=== PATIENT | female | born 1990 | race Caucasian/White ===

== ENCOUNTER 2022-04-16 08:42 | Outpatient (CLI) | payer OTHER, SELFPAY ==
[2022-04-16 12:06] LABS: Cholesterol* 166 mg/dL (90-199); Glucose* 79 mg/dL (60-115)
[2022-04-16 12:07] LABS: HDL Cholesterol* 72 mg/dL (>=50); LDL Cholesterol Calculated 75 mg/dL (<100); Triglycerides* 94 mg/dL (40-149)
== END 2022-04-16 08:43 | disposition home or self-care (01) ==
PROVIDERS: Visit Provider Physician Assistant
DX: Z01.419 Encounter for gynecological examination (general) (routine) without abnormal findings (principal); Z13.6 Encounter for screening for cardiovascular disorders; Z13.1 Encounter for screening for diabetes mellitus
CPT/HCPCS: 80061; 82947

== ENCOUNTER 2022-12-03 07:30 | Outpatient (CLI) | payer OTHER, SELFPAY ==
--- NOTE | 2022-12-03 07:45 | CRLHL7_ITS ---
For Patients: As a result of the Century Cures Act, medical imaging exams and procedure reports are released immediately into your electronic medical record. You may view this report before your referring provider. If you have questions, please contact your health care provider. DIGITAL DIAGNOSTIC LEFT MAMMOGRAM USING TOMOSYNTHESIS AND COMPUTER-AIDED DETECTION LEFT BREAST ULTRASOUND CLINICAL HISTORY: LEFT breast lump. COMPARISON: None. TECHNIQUE: Digital LEFT mammogram in three projections. Tomosynthesis and CAD utilized. Real-time ultrasound imaging of LEFT breast with imaging documentation. BREAST COMPOSITION: The breast is extremely dense, which lowers the sensitivity of mammography. FINDINGS: 3D CC, 3D XCCL and 3D MLO LEFT breast mammogram images submitted. Architectural distortion is present in the upper outer quadrant corresponding to the area of palpable concern. Targeted ultrasound upper outer quadrant performed. In the area of palpable concern there is a large micro lobulated hypoechoic solid mass at 2 o`clock 8 cm from the nipple measuring 3.9 x 2.2 x 3.3 cm. Internal blood flow noted. An additional hypoechoic and lobular masses present at 2 o`clock 10 cm from the nipple measuring 2.4 x 1.5 x 2.2 cm. LEFT axillary lymph node is mildly prominent with cortical thickness measuring up to 4 millimeters. The two breast lesions described above are located approximately 1.1 cm from each other. Additional smaller masses are suspected elsewhere within the upper outer quadrant extending toward the nipple with a third spiculated mass measuring 1.8 x 1.4 x 1.6 cm at 2 o`clock 5 cm from the nipple. IMPRESSION: Multiple, approximately three, solid irregular hypoechoic masses within the upper outer quadrant 2 o`clock 5 cm from the nipple, 8 cm from the nipple and 10 cm from the nipple and measuring 1.8 cm, 3.9 cm and 2.4 cm, respectively. Mildly prominent LEFT axillary lymph node with mild cortical thickening. RECOMMENDATIONS: Ultrasound-guided core needle biopsies. Results and recommendations discussed with the patient. BI-RADS Category 4: Suspicious A lay language report of this examination will be provided to the patient. Dictated by Jovon Ragland MD @ 12/03/2022 9:16:39 AM j/Dictated by: Jovon Ragland MD @ 12/03/2022 9:16:00 AM (Electronically Signed)
--- NOTE | 2022-12-03 08:15 | CRLHL7_ITS ---
For Patients: As a result of the Century Cures Act, medical imaging exams and procedure reports are released immediately into your electronic medical record. You may view this report before your referring provider. If you have questions, please contact your health care provider. PLEASE SEE LEFT DIAGNOSTIC MAMMOGRAM OF SAME DAY. CRL:yary CALE/Dictated by: Jovon Ragland MD @ 12/03/2022 9:16:00 AM (Electronically Signed)
== END 2022-12-03 07:31 | disposition home or self-care (01) ==
LOC: MAMMO 07:30
PROVIDERS: Visit Provider Obstetrics & Gynecology
DX: N63.20 Unspecified lump in the left breast, unspecified quadrant (principal)
CPT/HCPCS: 76642; 77065; G0279

== ENCOUNTER 2022-12-13 09:59 | Outpatient (CLI) | payer OTHER, SELFPAY ==
--- NOTE | 2022-12-13 | CRLHL7_ITS ---
For Patients: As a result of the Century Cures Act, medical imaging exams and procedure reports are released immediately into your electronic medical record. You may view this report before your referring provider. If you have questions, please contact your health care provider. RIGHT DIAGNOSTIC MAMMOGRAM WITH COMPUTER-AIDED DETECTION AND TOMOSYNTHESIS CLINICAL HISTORY: Suspicious LEFT breast masses. Diagnostic RIGHT-sided evaluation performed for completion of workup. COMPARISON: No previous RIGHT-sided imaging available. TECHNIQUE: Digital RIGHT mammogram in 2 projections. Computer-aided detection and tomosynthesis were used. Real-time ultrasound imaging of RIGHT breast with imaging documentation. Scanning was performed by both the technologist and the radiologist. BREAST COMPOSITION: The breasts are extremely dense, which lowers the sensitivity of mammography FINDINGS: Normal dense parenchymal tissue is present on mammography with scattered benign calcifications. No suspicious masses or architectural distortion. No adenopathy. Relatively denser tissue appears a present laterally on clinical exam and on the mammogram. Targeted RIGHT breast ultrasound performed laterally demonstrates dense tissue without suspicious finding. No fibrocystic change. IMPRESSION: No evidence of malignancy on diagnostic mammography and targeted RIGHT breast ultrasound in the lateral aspect. RECOMMENDATIONS: Appropriate action based on the results of the LEFT breast biopsies. BI-RADS Category 2: Benign Results and recommendations discussed with the patient following the left breast biopsy procedures. A lay language report of this examination will be provided to the patient. Dictated by Jovon Ragland MD @ 12/13/2022 12:53:10 PM/yary CALE/Dictated by: Jovon Ragland MD @ 12/13/2022 12:53:00 PM (Electronically Signed)
--- NOTE | 2022-12-13 | CRLHL7_ITS ---
For Patients: As a result of the Century Cures Act, medical imaging exams and procedure reports are released immediately into your electronic medical record. You may view this report before your referring provider. If you have questions, please contact your health care provider. PLEASE SEE RIGHT DIAGNOSTIC MAMMOGRAM OF SAME DAY. CRL:yary CALE/Dictated by: Jovon Ragland MD @ 12/13/2022 12:53:00 PM (Electronically Signed)
--- NOTE | 2022-12-13 10:15 | CRLHL7_ITS ---
For Patients: As a result of the Century Cures Act, medical imaging exams and procedure reports are released immediately into your electronic medical record. You may view this report before your referring provider. If you have questions, please contact your health care provider. ULTRASOUND-GUIDED VACUUM-ASSISTED BREAST BIOPSY OF TWO OR MORE SITES AND POST-BIOPSY DIGITAL MAMMOGRAM FOR BIOPSY MARKER PLACEMENT CLINICAL HISTORY: Suspicious LEFT breast masses. COMPARISON STUDIES: 12/03/2022. TECHNIQUE: Real-time ultrasound with image documentation was used for targeting the breast lesions. Regarding the largest lesion, a vacuum-assisted directional biopsy system was used to obtain core tissue samples with a 10-gauge probe. The 2 additional lesions were biopsied using 18 gauge core needle biopsy devices. Post-biopsy CC and ML digital mammograms were obtained to document position of the biopsy marker. CONSENT and TIME OUT: The procedure, risks, and alternatives were explained to the patient and a consent was signed. [facility] [place] Protocol was followed including pre-procedure verification that relevant information/documentation was available, reviewed and properly matched to the patient; consent accurate and complete; and equipment and supplies available. Time Out was conducted just prior to starting procedure to verify the four required elements: patient identity, correct side/site marked (if applicable), procedure, relevant images/results properly labeled and displayed (if applicable). PROCEDURE: All biopsies were performed in a similar manner. The patient was positioned supine on the ultrasound table. The breast was prepped with ChloraPrep. Ten cc of 1% lidocaine was injected for anesthesia regarding each lesion. A single skin incision was used. Core samples were obtained. A sterile metal biopsy clip was placed percutaneously to lizbeth the lesion position within the breast. The specimens were placed in 10% formalin and sent to the Pathology Department. Pressure was held on the biopsy site until all bleeding subsided. The skin incision was closed with Steri-Strips. An ice pack was positioned over the biopsy site. The patient tolerated the procedure well. Post-biopsy instructions were reviewed with the patient, and a written copy was given to her. SITE A: LATERALITY: LEFT breast, 2 o`clock 8 cm from the nipple measuring 3.9 x 2.2 x 3.3 cm. LESION: Hypoechoic irregularly marginated solid mass. SUSPICION: High. NUMBER OF SAMPLES: 5. BIOPSY CLIP SHAPE: HydroMARK. PROXIMITY OF CLIP TO TARGET: Within the lesion. SITE B: LATERALITY: LEFT breast, 2 o`clock 5 cm from the nipple measuring 1.8 x 1.4 x 1.6 cm. LESION: Hypoechoic irregularly marginated solid mass. SUSPICION: High. NUMBER OF SAMPLES: 5. BIOPSY CLIP SHAPE: Oval. PROXIMITY OF CLIP TO TARGET: Within the lesion. SITE C: LATERALITY: LEFT breast, 2 o`clock 10 cm from the nipple measuring 2.4 x 1.5 x 2.2 cm. LESION: Hypoechoic irregularly marginated solid mass. SUSPICION: High. NUMBER OF SAMPLES: 5. BIOPSY CLIP SHAPE: Oval. PROXIMITY OF CLIP TO TARGET: Within the lesion. DISTANCE BETWEEN: Sites A and B: 1.1 cm. Sites A and C: 0.8 cm. Sites B and C: 1.9 cm. IMPRESSION: Ultrasound-guided breast biopsy of two or more sites. When the pathology report is available, an addendum to this report will be made. ACR not applicable Dictated by: Geovani Chino MD @12/13/2022 12:57:56 PM/yary CALE/Dictated by: Geovani Chino MD @ 12/13/2022 12:57:00 PM ----ADDENDUM---- Pathology for all three lesions is positive for invasive ductal carcinoma. This is concordant. Pretreatment breast MRI recommended. Appropriate action recommended. GEOVANI CHINO M.D. Diagnostic Radiologist [email or web address] D& Transcribed: 11:50 a.m. (Electronically Signed)
--- NOTE | 2022-12-13 10:45 | CRLHL7_ITS ---
For Patients: As a result of the Century Cures Act, medical imaging exams and procedure reports are released immediately into your electronic medical record. You may view this report before your referring provider. If you have questions, please contact your health care provider. PLEASE SEE LEFT ULTRASOUND-GUIDED BIOPSY OF SAME DAY. CRL:yary CALE/Dictated by: Jovon Ragland MD @ 12/13/2022 12:57:00 PM (Electronically Signed)
== END 2022-12-13 10:00 | disposition home or self-care (01) ==
LOC: US 09:59
PROVIDERS: Visit Provider Obstetrics & Gynecology
DX: N63.20 Unspecified lump in the left breast, unspecified quadrant (principal); R92.8 Other abnormal and inconclusive findings on diagnostic imaging of breast
CPT/HCPCS: 19083; 19084; 76642; 77065; 88305; 88360; 88361; A4648; A4649; G0279

== ENCOUNTER 2022-12-23 12:46 | Outpatient (CLI) | payer OTHER, SELFPAY ==
--- NOTE | 2022-12-23 13:00 | CRLHL7_ITS ---
For Patients: As a result of the 21st Century Cures Act, medical imaging exams and procedure reports are released immediately into your electronic medical record. You may view this report before your referring provider. If you have questions, please contact your health care provider. BILATERAL BREAST MRI WITHOUT AND WITH GADOLINIUM CLINICAL HISTORY: 32-year-old female with recently diagnosed LEFT breast cancer. INDICATION FOR BREAST MRI: Staging of newly diagnosed breast cancer and screening of contralateral breast. Regional lymph nodes will also be assessed. COMPARISON STUDIES: LEFT mammogram and ultrasound 12/03/2022, RIGHT mammogram 12/13/2022, LEFT ultrasound-guided biopsy and post procedure mammogram 12/13/2022. CONTRAST: 15 cc of Dotarem. TECHNIQUE: The patient was positioned prone using a breast coil. Multiple imaging sequences were obtained using 1-1.5 mm thick slices with no gap. The image sequences include T2-weighted STIR in the axial plane, T1-weighted nonfat-saturated gradient echo in the axial plane, pre- and post-contrast T1-weighted FLASH 3D with fat suppression in the axial plane, and T1-weighted FLASH high resolution 3D with fat suppression in the sagittal plane. Image post-processing was performed on a [employer] workstation. Complex 3D rendering including maximum intensity projections (MIPS) and volumetric renderings were obtained to optimize visualization of the extent of pathology and relationship to the nipple, skin, and chest wall. This aids in determining feasibility of breast conservation surgery. Subtraction, multiplanar reconstruction, mean curve determination, and angiogenesis mapping were also performed. The study was technically adequate. FINDINGS: Amount of Fibroglandular Tissue: Extreme fibroglandular tissue. Breast Background Enhancement: Marked. RIGHT Breast: At 4 o`clock, middle depth, approximately 4 cm from the nipple there is linear non-mass enhancement measuring 2.1 x 0.5 x 1.7 cm. This demonstrates fast initial enhancement with plateau. LEFT Breast: In the upper outer quadrant of the LEFT breast there are multiple masses with intervening non-mass enhancement which in total span at least 9.8 x 4.3 x 5.8 cm. The largest mass which contains a biopsy marker clip measures 2.4 x 2.6 x 2.5 cm (corresponding to the mass seen on ultrasound labeled as 2 o`clock, 8 cm from the nipple and contains a HydroMARK clip). There are two additional masses, posterior to the largest mass, one of which contains a biopsy marker clip, corresponding to the site of biopsy-proven malignancy at 2 o`clock, 10 cm from the nipple and measures 1.5 x 1.9 cm on MRI. The third site of biopsy-proven malignancy in labeled on ultrasound as 2 o`clock, 5 cm from the nipple measures 1.3 x 1.3 cm on MRI. Lymph Nodes: Lymph nodes appear similar bilaterally. IMPRESSIONS AND RECOMMENDATIONS: LEFT Breast: 1. Multiple masses with intervening non-mass enhancement in the upper outer quadrant, which in total measures up to 9.8 cm is consistent with the biopsy-proven malignancy. 2. Lymph nodes appear symmetric bilaterally, however on the ultrasound there is reported mild cortical thickening of a LEFT axillary lymph node, if it would alter clinical management, consider ultrasound-guided biopsy. RIGHT Breast: Non-mass enhancement in a linear distribution at 4 o`clock, middle depth, measuring up to 2.1 cm and MRI is suspicious. MRI-guided biopsy is recommended. BI-RADS Category 4: Suspicious Dictated by Wen Mo MD @ 12/27/2022 2:10:43 PM paulo/Dictated by: Wen Mo MD @ 12/27/2022 2:16:00 PM (Electronically Signed)
== END 2022-12-23 12:47 | disposition home or self-care (01) ==
LOC: MRI 12:47
PROVIDERS: Visit Provider Surgery
DX: C50.912 Malignant neoplasm of unspecified site of left female breast (principal); R92.2 Inconclusive mammogram
CPT/HCPCS: 77049; A9575

== ENCOUNTER 2023-03-17 08:57 | Day surgery (SDC) | payer OTHER, SELFPAY ==
[2023-03-17 09:09] VITALS: BMI 27.2
[2023-03-17 09:12] VITALS: BP 119/72; PULSE 69; RESP 16; TEMP 36.7; O2SAT 98
[2023-03-17 09:17] LABS: Ur HCG Qualitative* Negative (Negative)
[2023-03-17] MEDS: LACTATED RINGERS 1000 ML 1,000 ML 100 ML IV (09:50)
[2023-03-17] MEDS: SODIUM CHLORIDE 0.9 % (FLUSH) 10 ML SYRINGE IVF (09:50)
--- NOTE | 2023-03-17 10:45 | CRLHL7_ITS ---
For Patients: As a result of the Century Cures Act, medical imaging exams and procedure reports are released immediately into your electronic medical record. You may view this report before your referring provider. If you have questions, please contact your health care provider. Indication: Port-A-Cath placement Technique: Fluoroscopic image of the chest. Fluoroscopic time 33.5 seconds. IMPRESSION: Fluoroscopic guidance for Port-A-Cath placement. Dictated by Jovon Ragland MD @ 03/17/2023 1:26:17 PM (Electronically Signed)
--- NOTE | 2023-03-17 11:09 | W.ANESCHARGE ---
Anesthesia Charges Start Date/Time Anesthesia Start Date: 03/17/23 Anesthesia Start Time: 12:07 Stop Date/Time Anesthesia Stop Date: 03/17/23 Anesthesia Stop Time: 13:32
[2023-03-17] MEDS: CEFAZOLIN 2 GM INJ IVP (12:36)
[2023-03-17] MEDS: LIDOCAINE 1 % PF 30 ML INJECTION (12:45)
[2023-03-17] MEDS: BUPIVACAINE 0.5% 30 ML INJECTION (12:45)
[2023-03-17] MEDS: HEPARIN 500 UNIT/5 ML SYRINGE IVF (13:06)
--- NOTE | 2023-03-17 13:37 | W.ANESCHARGE ---
Anesthesia Charges Start Date/Time Anesthesia Start Date: 03/17/23 Anesthesia Start Time: 12:07 Stop Date/Time Anesthesia Stop Date: 03/17/23 Anesthesia Stop Time: 13:32
[2023-03-17 13:40] VITALS: BP 107/63; PULSE 64; RESP 16; TEMP 36.1; O2SAT 97
[2023-03-17 13:45] VITALS: BP 109/64; PULSE 54; RESP 16; O2SAT 97
[2023-03-17 14:00] VITALS: BP 106/59; PULSE 60; RESP 16; O2SAT 98
--- NOTE | 2023-03-17 14:00 | P.GSOP_ITS ---
Operative Note Pre-op diagnosis: Invasive carcinoma of the left breast Post-op diagnosis: Same Type of Procedure: Right internal jugular port a catheter placement. Indications: Patient is a 32-year-old female with recent diagnosis invasive ductal carcinoma of the left breast. She had previously undergone bilateral mastectomy with reconstruction, placement of bilateral tissue expanders. She was seen by Oncology postoperatively with recommendations to pursue chemotherapy. Risks and benefits of operative intervention were discussed at length with the patient. Risks included but was not limited to: Bleeding, infection, risk of damage to surrounding structures, possible need for additional procedures and postoperative complications such as pneumonia, pulmonary emboli or MT. All q uestions and concerns were addressed with the patient agreeing to proceed. Procedure Description: After discussing the risks and benefits of the procedure, the patient signed informed consent.? The operative site was marked and the patient was brought to the operating room and placed on the operating table in supine position.? Care was taken to pad the patient's pressure points.?? The patient was then given sedation by anesthesia.?? The operative site was then prepped and draped in the usual sterile fashion.? A time-out was then performed. The patient's right internal jugular vein was visualized using ultrasound. Local anesthetic was injected into the neck skin above the vein. This was accessed percutaneously via Seldinger technique using ultrasound guidance. A skin xin was made around the wire. Next local anesthetic was injected into the skin below the clavicle and along the proposed tract to the neck incision. A skin incision was then made with a 15 blade and a pocket created in the chest wall with cautery. The right breast tissue expanders were palpated in lied of approximately 4 cm away from the clavicle. The pocket for the port was created superior to this, care was taken to ensure that the capsule of the tissue expanders was not encountered. A tunneler was then used to thread the catheter from the chest wall pocket to the neck incision. Once this was done fluoroscopy was brought into the field. Over the wire the tract was dilated using fluoroscopy. The wire and the dilator were then removed leaving the sheath i ntact in the vein. Through this the catheter was threaded. Using fluoroscopy the catheter was positioned into the distal SVC. The catheter was noted to flush and aspirate easily. The catheter was then connected to the port. The port was placed in the pocket and secured in place with two 2 0 Prolene stay suture. It was noted to flush and aspirate easily. This was then locked with heparinized saline. The skin was closed with absorbable suture. Sterile dressings were applied. Instrument sponge and needle counts were correct at the end of the case. The patient was woken and taken to the PACU in stable condition. Findings: Right internal jugular port a catheter placement Anesthesia: MAC and local Surgeon: Seda Lockwood MD Estimated blood loss (mL): 2 Condition: stable Disposition: same day Date of procedure: 03/17/23
[2023-03-17 14:15] VITALS: BP 112/68; PULSE 84; RESP 16; O2SAT 97
== END 2023-03-17 14:40 | disposition home or self-care (01) ==
PROVIDERS: Anesthesiology; PCP Obstetrics & Gynecology; Visit Provider Surgery
PROC: (CPT 36561; principal; 2023-03-17 10:45)
DX: Z45.2 Encounter for adjustment and management of vascular access device (principal); C50.912 Malignant neoplasm of unspecified site of left female breast
CPT/HCPCS: 36561; 00532; 71045; 76000; 81025; C1788; J0665; J0690; J1100; J1642; J1885; J2001; J2250; J2405; J2704; J3010; J7120

== ENCOUNTER 2023-08-03 11:30 | Outpatient (RCR) | payer OTHER, SELFPAY ==
--- NOTE | 2023-03-15 09:58 | URNOTE ---
Addendum entered by Marci Sidhu RN 03/18/23 11:38: Neulasta([id number]), has been approved for ONLY THREE MONTHS. 03/11/2023-06/10/2023. Auth #[id number] It will then need to be given in an alternative setting. Original Note: Received request for prior auth for Adriamycin ([id number]), Cytoxan ([id number]), Aloxi ([id number]), Emend ([id number]) and Taxol ([id number]), Per Alberto at [facility], these medications do not require prior authorization. Call ref #[id number] Prior authorization is required for Neulasta([id number]) required prior authorization. This is pending with [facility] and they have until 03/16/2023 to complete.
[2023-03-18 14:40] LABS: Basophils Absolute Auto 0.03 K/uL (0.00-0.30); Basophils Percent Auto 0.4 % (0.0-3.0); Eosinophils Absolute Auto 0.04 K/uL (0.00-0.50); Eosinophils Percent Auto 0.5 % (0.0-7.0); Hematocrit 39.7 % (33.0-51.0); Hemoglobin* 13.1 gm/dL (12.0-16.0); Lymphocytes Absolute Auto 2.76 K/uL (0.90-2.90); Lymphocytes Percent Auto 37.7 % (20-44); Mean Corpuscular HGB Conc 33 gm/dL (32-36); Mean Corpuscular Hemoglobin 33 pg (26-34); Mean Corpuscular Volume 99 fL (80-100); Monocytes Percent Auto 6.3 % (0.0-11.0); Neutrophils Absolute Auto 4.04 K/uL (1.7-7.0); Neutrophils Percent Auto 55.1 % (42.0-72.0); Platelet Count* 251 K/uL (140-440); RDW Coefficient of Variation % 11.4 % (11.5-15.5); Red Blood Count 4.03 m/uL (4.00-5.20); White Blood Count* 7.33 K/uL (4.50-11.00)
[2023-03-18 14:42] LABS: Slide Review Reflex No
[2023-03-18 14:59] LABS: Albumin* 4.6 g/dL (3.3-5.0); Chloride* 104 mmol/L (96-114)
[2023-03-18 15:00] LABS: Sodium* 141 mmol/L (135-149)
[2023-03-18 15:02] LABS: Alkaline Phosphatase* 48 U/L (40-150); Anion Gap 9 mEq/L (7-15); Aspartate Amino Transferase* 23 U/L (12-35); Bilirubin Total* 0.3 mg/dL (0.1-1.5); Blood Urea Nitrogen* 21 mg/dL (5-24); Carbon Dioxide* 28 mmol/L (20-32); Creatinine* 0.6 mg/dL (0.5-1.5); Est. Creatinine Clearance* 133.27; Estimated Glomerular Filt Rate 121 ml/min; Total Protein* 7.7 g/dL (6.0-8.3)
[2023-03-18 15:03] LABS: Alanine Aminotransferase* 21 U/L (4-35); Calcium* 9.6 mg/dL (8.4-10.6); Glucose* 82 mg/dL (60-115)
--- NOTE | 2023-03-18 15:10 | ONC.NURNOTE ---
I met with patient for chemotherapy teaching. Contents of the chemotherapy binder were reviewed. We reviewed side effects of chemotherapy, support resources available, what to report to provider and how to contact the provider. Baseline labs drawn. Patient verbalizes understanding of plan.
[2023-03-23 11:47] VITALS: BP 141/82; PULSE 88; RESP 16; TEMP 36.1; O2SAT 100
[2023-03-23 11:51] LABS: HCG Qualitative Serum* Negative (Negative)
[2023-03-23] MEDS: dexAMETHasone 10 MG in 0.9 % SODIUM CHLORIDE 100 ml 100 ML 404 MG IVPB (12:44)
[2023-03-23] MEDS: PALONOSETRON 0.25 MG/5 ML inj IV (12:44)
[2023-03-23] MEDS: FOSAPREPITANT 150 MG inj 150 MG in 0.9 % SODIUM CHLORIDE 250 ml 250 ML 510 MG IVPB (13:06)
[2023-03-23] MEDS: DOXOrubicin 2 MG/ML inj 120 MG IVP (13:43)
[2023-03-23 14:37] VITALS: BP 129/78; PULSE 65; O2SAT 99
--- NOTE | 2023-03-23 16:10 | ONC.NURNOTE ---
Pt tolerated 1st AC overall well. Pt noted mild sinus pressure/light headedness at conclusion of Cytoxan 30 min infusion. Plan to infuse over 45 min for C2. Port site still slightly swollen from placement; used 1 inch needle, but pt may transition to 3/4 inch needle after healing. Surgical steri strips covering access site; removed prior to accessing and replaced with horizontal steri-strips over incision when port deaccessed.
[2023-04-06 11:42] VITALS: BP 120/80; PULSE 81; RESP 16; TEMP 36.2; O2SAT 99
[2023-04-06 12:06] LABS: Basophils Absolute Auto 0.03 K/uL (0.00-0.30); Basophils Percent Auto 0.4 % (0.0-3.0); Eosinophils Absolute Auto 0.01 K/uL (0.00-0.50); Eosinophils Percent Auto 0.1 % (0.0-7.0); Hematocrit 39.1 % (33.0-51.0); Hemoglobin* 13.3 gm/dL (12.0-16.0); Immature Granulocytes Abs Auto 0.11 K/uL (0.00-0.30); Immature Granulocytes Pct Auto 1.5 %; Lymphocytes Percent Auto 19.6 % (20-44); Mean Corpuscular HGB Conc 34 gm/dL (32-36); Mean Corpuscular Hemoglobin 32 pg (26-34); Mean Corpuscular Volume 95 fL (80-100); Monocytes Percent Auto 8.2 % (0.0-11.0); Neutrophils Absolute Auto 5.02 K/uL (1.7-7.0); Neutrophils Percent Auto 70.2 % (42.0-72.0); Platelet Count* 226 K/uL (140-440); RDW Coefficient of Variation % 11.1 % (11.5-15.5); White Blood Count* 7.16 K/uL (4.50-11.00)
[2023-04-06 12:10] LABS: Slide Review Reflex No
[2023-04-06 12:17] LABS: Albumin* 4.7 g/dL (3.3-5.0)
[2023-04-06 12:18] LABS: Chloride* 99 mmol/L (96-114); Potassium* 3.6 mmol/L (3.6-5.1); Sodium* 136 mmol/L (135-149)
[2023-04-06 12:20] LABS: Aspartate Amino Transferase* 38 U/L (12-35); Bilirubin Total* 0.5 mg/dL (0.1-1.5); Carbon Dioxide* 23 mmol/L (20-32); Creatinine* 0.5 mg/dL (0.5-1.5); Est. Creatinine Clearance* 159.93; Estimated Glomerular Filt Rate 126 ml/min; Total Protein* 7.8 g/dL (6.0-8.3)
[2023-04-06 12:21] LABS: Alanine Aminotransferase* 33 U/L (4-35); Alkaline Phosphatase* 80 U/L (40-150); Blood Urea Nitrogen* 12 mg/dL (5-24); Calcium* 9.2 mg/dL (8.4-10.6); Glucose* 76 mg/dL (60-115)
[2023-04-06 12:22] LABS: Anion Gap 14 mEq/L (7-15)
[2023-04-06 12:23] LABS: HCG Qualitative Serum* Negative (Negative)
--- NOTE | 2023-04-06 12:32 | ONC.PROVNOTE ---
[facility] Provider Note Clinic Note Narrative: Routine on-chemotherapy testing for Discussed with Marychuy Hicks PA-C regarding routine testng prior to chemotherapy. Marychuy Hicks shared communication from [place] that per NCCN, ASCO guidelines, women of child bearing age who have potential to be are tested prior to day 1, cycle 1 for a breast cancer treatment plans. Based on this information, I placed order for serum hcg level prior to cycle 1 day 1 of ddAC on behalf of Marychuy Hicks PA-C for Ms Lim. Subsequent serum hcg orders for future cycles were ordered in error and have been discontinued for Ms. Lim.
[2023-04-06] MEDS: PALONOSETRON 0.25 MG/5 ML inj IV (13:11)
[2023-04-06] MEDS: dexAMETHasone 10 MG in 0.9 % SODIUM CHLORIDE 100 ml 100 ML 404 MG IVPB (13:11)
[2023-04-06] MEDS: FOSAPREPITANT 150 MG inj 150 MG in 0.9 % SODIUM CHLORIDE 250 ml 250 ML 510 MG IVPB (13:40)
[2023-04-06] MEDS: 0.9 % SODIUM CHLORIDE 250 ml IV (13:41)
[2023-04-06] MEDS: DOXOrubicin 2 MG/ML inj 120 MG IVP (14:14)
[2023-04-06] MEDS: SODIUM CHLORIDE 0.9 % (FLUSH) 10 ML SYRINGE IVF (15:30)
[2023-04-21 10:47] LABS: Basophils Absolute Auto 0.03 K/uL (0.00-0.30); Basophils Percent Auto 0.3 % (0.0-3.0); Eosinophils Absolute Auto 0.01 K/uL (0.00-0.50); Eosinophils Percent Auto 0.1 % (0.0-7.0); Hematocrit 36.8 % (33.0-51.0); Hemoglobin* 12.4 gm/dL (12.0-16.0); Immature Granulocytes Abs Auto 0.14 K/uL (0.00-0.30); Immature Granulocytes Pct Auto 1.5 %; Lymphocytes Percent Auto 10.7 % (20-44); Mean Corpuscular HGB Conc 34 gm/dL (32-36); Mean Corpuscular Hemoglobin 32 pg (26-34); Mean Corpuscular Volume 95 fL (80-100); Monocytes Percent Auto 7.8 % (0.0-11.0); Neutrophils Percent Auto 79.6 % (42.0-72.0); Platelet Count* 196 K/uL (140-440); RDW Coefficient of Variation % 11.7 % (11.5-15.5); Red Blood Count 3.87 m/uL (4.00-5.20); White Blood Count* 9.09 K/uL (4.50-11.00)
[2023-04-21 10:52] LABS: Slide Review Reflex No
[2023-04-21 11:12] LABS: Albumin* 4.7 g/dL (3.3-5.0); Chloride* 97 mmol/L (96-114); Potassium* 3.8 mmol/L (3.6-5.1); Sodium* 136 mmol/L (135-149)
[2023-04-21 11:15] LABS: Alanine Aminotransferase* 37 U/L (4-35); Alkaline Phosphatase* 89 U/L (40-150); Anion Gap 14 mEq/L (7-15); Aspartate Amino Transferase* 39 U/L (12-35); Bilirubin Total* 0.5 mg/dL (0.1-1.5); Blood Urea Nitrogen* 12 mg/dL (5-24); Carbon Dioxide* 25 mmol/L (20-32); Creatinine* 0.5 mg/dL (0.5-1.5); Est. Creatinine Clearance* 159.93; Estimated Glomerular Filt Rate 126 ml/min; Glucose* 82 mg/dL (60-115); Total Protein* 7.7 g/dL (6.0-8.3)
[2023-04-21 11:16] LABS: Calcium* 9.3 mg/dL (8.4-10.6)
[2023-04-21 12:04] LABS: HCG Qualitative Serum* Negative (Negative)
[2023-04-21] MEDS: 0.9 % SODIUM CHLORIDE 250 ml IV ×2 (12:20→13:10)
[2023-04-21] MEDS: PALONOSETRON 0.25 MG/5 ML inj IV (12:23)
[2023-04-21] MEDS: dexAMETHasone 10 MG in 0.9 % SODIUM CHLORIDE 100 ml 100 ML 420 MG IVPB (12:23)
[2023-04-21] MEDS: FOSAPREPITANT 150 MG inj 150 MG in 0.9 % SODIUM CHLORIDE 250 ml 250 ML 800 MG IVPB (13:10)
[2023-04-21] MEDS: DOXOrubicin 2 MG/ML inj 120 MG IVP (13:29)
[2023-04-21] MEDS: HEPARIN 500 UNIT/5 ML SYRINGE IVF (15:09)
[2023-04-21] MEDS: SODIUM CHLORIDE 0.9 % (FLUSH) 10 ML SYRINGE IVF (15:09)
[2023-05-09 11:30] LABS: Albumin* 4.7 g/dL (3.3-5.0); Chloride* 104 mmol/L (96-114); Sodium* 138 mmol/L (135-149)
[2023-05-09 11:31] LABS: Potassium* 3.9 mmol/L (3.6-5.1)
[2023-05-09 11:32] LABS: Basophils Absolute Auto 0.02 K/uL (0.00-0.30); Basophils Percent Auto 0.2 % (0.0-3.0); Eosinophils Absolute Auto 0.01 K/uL (0.00-0.50); Eosinophils Percent Auto 0.1 % (0.0-7.0); Hematocrit 33.1 % (33.0-51.0); Immature Granulocytes Abs Auto 0.03 K/uL (0.00-0.30); Immature Granulocytes Pct Auto 0.3 %; Lymphocytes Percent Auto 7.2 % (20-44); Mean Corpuscular HGB Conc 33 gm/dL (32-36); Mean Corpuscular Hemoglobin 33 pg (26-34); Mean Corpuscular Volume 99 fL (80-100); Neutrophils Percent Auto 86.2 % (42.0-72.0); Platelet Count* 275 K/uL (140-440); Red Blood Count 3.34 m/uL (4.00-5.20); White Blood Count* 9.29 K/uL (4.50-11.00)
[2023-05-09 11:33] LABS: Alanine Aminotransferase* 37 U/L (4-35); Alkaline Phosphatase* 79 U/L (40-150); Aspartate Amino Transferase* 32 U/L (12-35); Bilirubin Total* 0.4 mg/dL (0.1-1.5); Blood Urea Nitrogen* 13 mg/dL (5-24); Creatinine* 0.4 mg/dL (0.5-1.5); Est. Creatinine Clearance* 199.91; Estimated Glomerular Filt Rate 133 ml/min; Glucose* 82 mg/dL (60-115); Total Protein* 7.2 g/dL (6.0-8.3)
[2023-05-09 11:34] LABS: Calcium* 9.1 mg/dL (8.4-10.6)
[2023-05-09 11:36] LABS: Slide Review Reflex No
[2023-05-09 11:50] LABS: Anion Gap 10 mEq/L (7-15); Carbon Dioxide* 24 mmol/L (20-32)
[2023-05-09 12:06] LABS: HCG Qualitative Serum* Negative (Negative)
[2023-05-09] MEDS: SODIUM CHLORIDE 0.9 % (FLUSH) 10 ML SYRINGE IVF (12:54)
[2023-05-09] MEDS: PALONOSETRON 0.25 MG/5 ML inj IV (12:54)
[2023-05-09] MEDS: dexAMETHasone 10 MG in 0.9 % SODIUM CHLORIDE 100 ml 100 ML 404 MG IVPB (12:54)
[2023-05-09] MEDS: HEPARIN 500 UNIT/5 ML SYRINGE IVF (12:54)
[2023-05-09] MEDS: 0.9 % SODIUM CHLORIDE 250 ml IV (12:55)
[2023-05-09] MEDS: FOSAPREPITANT 150 MG inj 150 MG in 0.9 % SODIUM CHLORIDE 250 ml 250 ML 800 MG IVPB (13:18)
[2023-05-09] MEDS: DOXOrubicin 2 MG/ML inj 120 MG IVP (13:45)
--- NOTE | 2023-05-09 15:06 | ONC.NURNOTE ---
I met with patient during her infusion appointment. We reviewed side effects of Paclitaxel. Printed information provided. Cryotherapy information provided to patient. Consent form signed.
--- NOTE | 2023-05-09 15:42 | ONC.NURNOTE ---
Patient requesting a referral to [facility] for proton beam radiation. Called placed to Dr. Elena office and they will place referral. [facility] will call patient to schedule consult.
[2023-05-25 08:41] LABS: Basophils Absolute Auto 0.02 K/uL (0.00-0.30); Basophils Percent Auto 0.4 % (0.0-3.0); Eosinophils Absolute Auto 0.02 K/uL (0.00-0.50); Eosinophils Percent Auto 0.4 % (0.0-7.0); Hematocrit 32.9 % (33.0-51.0); Hemoglobin* 11.2 gm/dL (12.0-16.0); Immature Granulocytes Abs Auto 0.04 K/uL (0.00-0.30); Immature Granulocytes Pct Auto 0.9 %; Lymphocytes Percent Auto 14.9 % (20-44); Mean Corpuscular HGB Conc 34 gm/dL (32-36); Mean Corpuscular Hemoglobin 34 pg (26-34); Mean Corpuscular Volume 101 fL (80-100); Neutrophils Percent Auto 72.4 % (42.0-72.0); Platelet Count* 198 K/uL (140-440); RDW Coefficient of Variation % 17.9 % (11.5-15.5); Red Blood Count 3.26 m/uL (4.00-5.20); White Blood Count* 4.55 K/uL (4.50-11.00)
[2023-05-25 08:47] LABS: Slide Review Reflex No
[2023-05-25 08:54] LABS: Chloride* 106 mmol/L (96-114)
[2023-05-25 08:55] LABS: Albumin* 4.7 g/dL (3.3-5.0); Potassium* 4.3 mmol/L (3.6-5.1); Sodium* 139 mmol/L (135-149)
[2023-05-25 08:58] LABS: Alanine Aminotransferase* 25 U/L (4-35); Alkaline Phosphatase* 55 U/L (40-150); Anion Gap 7 mEq/L (7-15); Aspartate Amino Transferase* 24 U/L (12-35); Blood Urea Nitrogen* 20 mg/dL (5-24); Carbon Dioxide* 26 mmol/L (20-32); Creatinine* 0.6 mg/dL (0.5-1.5); Est. Creatinine Clearance* 133.27; Estimated Glomerular Filt Rate 121 ml/min; Total Protein* 7.3 g/dL (6.0-8.3)
[2023-05-25 08:59] LABS: Calcium* 9.2 mg/dL (8.4-10.6); Glucose* 86 mg/dL (60-115)
[2023-05-25 09:09] LABS: Bilirubin Total* < 0.1 mg/dL (0.1-1.5)
[2023-05-25 09:20] LABS: HCG Qualitative Serum* Negative (Negative)
[2023-05-25] MEDS: dexAMETHasone 20 MG in 0.9 % SODIUM CHLORIDE 100 ml 100 ML 408 MG IVPB (09:50)
[2023-05-25] MEDS: ONDANSETRON 2 MG/ML inj 8 MG IVP (09:50)
[2023-05-25] MEDS: 0.9 % SODIUM CHLORIDE 250 ml IV (09:50)
[2023-05-25] MEDS: FAMOTIDINE 20 MG, diphenhydrAMINE 50 MG in 0.9 % SODIUM CHLORIDE 100 ml 100 ML 309 MG IVPB (10:17)
[2023-05-25] MEDS: TUBING PRIMARY IV (10:53)
[2023-05-25] MEDS: PACLITAXEL IV (10:53)
[2023-05-25] MEDS: [UNRECOGNIZED DRUG - OTHER] IV (10:53)
[2023-05-25] MEDS: IN LINE IV (10:53)
[2023-05-25] MEDS: MICRON FILTER SET IV (10:53)
[2023-05-25] MEDS: SODIUM CHLORIDE 0.9 % (FLUSH) 10 ML SYRINGE IVF (12:17)
[2023-05-25] MEDS: HEPARIN 500 UNIT/5 ML SYRINGE IVF (12:17)
[2023-06-01 10:13] VITALS: BP 120/71; PULSE 84; RESP 16; TEMP 36.3; O2SAT 99
[2023-06-01 10:22] LABS: Basophils Percent Auto 0.9 % (0.0-3.0); Eosinophils Percent Auto 0.6 % (0.0-7.0); Hematocrit 31.1 % (33.0-51.0); Hemoglobin* 10.5 gm/dL (12.0-16.0); Immature Granulocytes Pct Auto 0.3 %; Lymphocytes Percent Auto 20.7 % (20-44); Mean Corpuscular HGB Conc 34 gm/dL (32-36); Mean Corpuscular Hemoglobin 34 pg (26-34); Mean Corpuscular Volume 102 fL (80-100); Monocytes Percent Auto 9.9 % (0.0-11.0); Neutrophils Percent Auto 67.6 % (42.0-72.0); Platelet Count* 259 K/uL (140-440); RDW Coefficient of Variation % 17.4 % (11.5-15.5); Red Blood Count 3.05 m/uL (4.00-5.20); White Blood Count* 3.34 K/uL (4.50-11.00)
[2023-06-01 10:30] LABS: Slide Review Reflex No
[2023-06-01 10:37] LABS: Albumin* 4.5 g/dL (3.3-5.0); Chloride* 104 mmol/L (96-114); Potassium* 4.2 mmol/L (3.6-5.1); Sodium* 138 mmol/L (135-149)
[2023-06-01 10:40] LABS: Alanine Aminotransferase* 59 U/L (4-35); Alkaline Phosphatase* 41 U/L (40-150); Anion Gap 8 mEq/L (7-15); Aspartate Amino Transferase* 39 U/L (12-35); Bilirubin Total* 0.2 mg/dL (0.1-1.5); Blood Urea Nitrogen* 14 mg/dL (5-24); Carbon Dioxide* 26 mmol/L (20-32); Creatinine* 0.5 mg/dL (0.5-1.5); Est. Creatinine Clearance* 159.93; Estimated Glomerular Filt Rate 126 ml/min; Glucose* 104 mg/dL (60-115)
[2023-06-01 10:41] LABS: Calcium* 9.1 mg/dL (8.4-10.6)
[2023-06-01 10:59] LABS: HCG Qualitative Serum* Negative (Negative)
[2023-06-01] MEDS: ONDANSETRON 2 MG/ML inj 8 MG IVP (11:32)
[2023-06-01] MEDS: dexAMETHasone 20 MG in 0.9 % SODIUM CHLORIDE 100 ml 100 ML 408 MG IVPB (11:33)
[2023-06-01] MEDS: SODIUM CHLORIDE 0.9 % (FLUSH) 10 ML SYRINGE IVF (11:41)
[2023-06-01] MEDS: HEPARIN 500 UNIT/5 ML SYRINGE IVF (11:41)
[2023-06-01] MEDS: 0.9 % SODIUM CHLORIDE 250 ml IV (11:41)
[2023-06-01] MEDS: FAMOTIDINE 20 MG, diphenhydrAMINE 50 MG in 0.9 % SODIUM CHLORIDE 100 ml 100 ML 309 MG IVPB (11:54)
[2023-06-01] MEDS: TUBING PRIMARY IV (12:25)
[2023-06-01] MEDS: IN LINE IV (12:25)
[2023-06-01] MEDS: PACLITAXEL IV (12:25)
[2023-06-01] MEDS: MICRON FILTER SET IV (12:25)
[2023-06-01] MEDS: [UNRECOGNIZED DRUG - OTHER] IV (12:25)
[2023-06-08 10:40] VITALS: BP 120/67; PULSE 72; RESP 16; TEMP 35.6; O2SAT 99
[2023-06-08 11:08] LABS: Basophils Percent Auto 1.2 % (0.0-3.0); Eosinophils Percent Auto 0.8 % (0.0-7.0); Hematocrit 30.6 % (33.0-51.0); Hemoglobin* 10.3 gm/dL (12.0-16.0); Immature Granulocytes Pct Auto 0.8 %; Lymphocytes Percent Auto 25.7 % (20-44); Mean Corpuscular HGB Conc 34 gm/dL (32-36); Mean Corpuscular Hemoglobin 35 pg (26-34); Mean Corpuscular Volume 103 fL (80-100); Monocytes Percent Auto 14.5 % (0.0-11.0); Platelet Count* 253 K/uL (140-440); Red Blood Count 2.98 m/uL (4.00-5.20); White Blood Count* 2.41 K/uL (4.50-11.00)
[2023-06-08 11:16] LABS: Slide Review Reflex No
[2023-06-08 11:25] LABS: Albumin* 4.5 g/dL (3.3-5.0); Chloride* 101 mmol/L (96-114); Potassium* 3.7 mmol/L (3.6-5.1); Sodium* 137 mmol/L (135-149)
[2023-06-08 11:27] LABS: Creatinine* 0.6 mg/dL (0.5-1.5); Est. Creatinine Clearance* 133.27; Estimated Glomerular Filt Rate 121 ml/min
[2023-06-08 11:28] LABS: Alanine Aminotransferase* 74 U/L (4-35); Alkaline Phosphatase* 50 U/L (40-150); Anion Gap 9 mEq/L (7-15); Aspartate Amino Transferase* 41 U/L (12-35); Bilirubin Total* 0.3 mg/dL (0.1-1.5); Blood Urea Nitrogen* 15 mg/dL (5-24); Carbon Dioxide* 27 mmol/L (20-32); Glucose* 83 mg/dL (60-115)
[2023-06-08 11:29] LABS: Calcium* 9.2 mg/dL (8.4-10.6)
[2023-06-08] MEDS: SODIUM CHLORIDE 0.9 % (FLUSH) 10 ML SYRINGE IVF (12:10)
[2023-06-08] MEDS: HEPARIN 500 UNIT/5 ML SYRINGE IVF (12:10)
[2023-06-08] MEDS: ONDANSETRON 2 MG/ML inj 8 MG IVP (12:10)
[2023-06-08] MEDS: 0.9 % SODIUM CHLORIDE 250 ml IV (12:10)
[2023-06-08] MEDS: dexAMETHasone 20 MG in 0.9 % SODIUM CHLORIDE 100 ml 100 ML 420 MG IVPB (12:11)
[2023-06-08] MEDS: FAMOTIDINE 20 MG, diphenhydrAMINE 50 MG in 0.9 % SODIUM CHLORIDE 100 ml 100 ML 410 MG IVPB (12:37)
[2023-06-08] MEDS: MICRON FILTER SET IV (13:00)
[2023-06-08] MEDS: IN LINE IV (13:00)
[2023-06-08] MEDS: [UNRECOGNIZED DRUG - OTHER] IV (13:00)
[2023-06-08] MEDS: PACLITAXEL IV (13:00)
[2023-06-08] MEDS: TUBING PRIMARY IV (13:00)
[2023-06-09 09:09] LABS: HCG Qualitative Serum* Negative (Negative)
[2023-06-16 10:05] LABS: Basophils Percent Auto 0.4 % (0.0-3.0); Eosinophils Percent Auto 0.7 % (0.0-7.0); Hematocrit 31.6 % (33.0-51.0); Hemoglobin* 10.6 gm/dL (12.0-16.0); Immature Granulocytes Pct Auto 0.4 %; Lymphocytes Percent Auto 16.1 % (20-44); Mean Corpuscular HGB Conc 34 gm/dL (32-36); Mean Corpuscular Hemoglobin 35 pg (26-34); Mean Corpuscular Volume 105 fL (80-100); Monocytes Percent Auto 11.5 % (0.0-11.0); Neutrophils Percent Auto 70.9 % (42.0-72.0); Platelet Count* 215 K/uL (140-440); RDW Coefficient of Variation % 15.2 % (11.5-15.5); Red Blood Count 3.02 m/uL (4.00-5.20); White Blood Count* 2.79 K/uL (4.50-11.00)
[2023-06-16 10:08] LABS: Slide Review Reflex No
[2023-06-16 10:19] LABS: Albumin* 4.5 g/dL (3.3-5.0); Chloride* 103 mmol/L (96-114); Potassium* 3.9 mmol/L (3.6-5.1); Sodium* 136 mmol/L (135-149)
[2023-06-16 10:21] LABS: Anion Gap 6 mEq/L (7-15); Aspartate Amino Transferase* 34 U/L (12-35); Bilirubin Total* 0.4 mg/dL (0.1-1.5); Carbon Dioxide* 27 mmol/L (20-32); Creatinine* 0.5 mg/dL (0.5-1.5); Est. Creatinine Clearance* 159.93; Estimated Glomerular Filt Rate 126 ml/min; Total Protein* 7.1 g/dL (6.0-8.3)
[2023-06-16 10:22] LABS: Alanine Aminotransferase* 54 U/L (4-35); Alkaline Phosphatase* 50 U/L (40-150); Blood Urea Nitrogen* 14 mg/dL (5-24); Calcium* 8.9 mg/dL (8.4-10.6); Glucose* 87 mg/dL (60-115)
[2023-06-16] MEDS: HEPARIN 500 UNIT/5 ML SYRINGE IVF (11:08)
[2023-06-16] MEDS: SODIUM CHLORIDE 0.9 % (FLUSH) 10 ML SYRINGE IVF (11:08)
[2023-06-16 12:15] LABS: HCG Qualitative Serum* Negative (Negative)
[2023-06-22 11:09] VITALS: BP 123/86; PULSE 77; RESP 16; TEMP 35.9; O2SAT 100
[2023-06-22 11:33] LABS: Eosinophils Percent Auto 0.7 % (0.0-7.0); Hematocrit 34.7 % (33.0-51.0); Hemoglobin* 11.6 gm/dL (12.0-16.0); Lymphocytes Percent Auto 26.2 % (20-44); Mean Corpuscular HGB Conc 33 gm/dL (32-36); Mean Corpuscular Hemoglobin 35 pg (26-34); Mean Corpuscular Volume 105 fL (80-100); Monocytes Percent Auto 13.8 % (0.0-11.0); Neutrophils Percent Auto 58.3 % (42.0-72.0); Platelet Count* 225 K/uL (140-440); White Blood Count* 2.98 K/uL (4.50-11.00)
[2023-06-22 11:37] LABS: Slide Review Reflex No
[2023-06-22 11:52] LABS: Albumin* 4.8 g/dL (3.3-5.0); Chloride* 101 mmol/L (96-114); Sodium* 138 mmol/L (135-149)
[2023-06-22 11:54] LABS: Creatinine* 0.5 mg/dL (0.5-1.5); Est. Creatinine Clearance* 159.93; Estimated Glomerular Filt Rate 126 ml/min
[2023-06-22 11:55] LABS: Alanine Aminotransferase* 54 U/L (4-35); Alkaline Phosphatase* 58 U/L (40-150); Anion Gap 10 mEq/L (7-15); Aspartate Amino Transferase* 33 U/L (12-35); Bilirubin Total* 0.4 mg/dL (0.1-1.5); Blood Urea Nitrogen* 18 mg/dL (5-24); Calcium* 9.4 mg/dL (8.4-10.6); Carbon Dioxide* 27 mmol/L (20-32); Glucose* 116 mg/dL (60-115); Total Protein* 7.6 g/dL (6.0-8.3)
[2023-06-22 12:04] LABS: HCG Qualitative Serum* Negative (Negative)
[2023-06-22] MEDS: dexAMETHasone 20 MG in 0.9 % SODIUM CHLORIDE 100 ml 100 ML 408 MG IVPB (12:35)
[2023-06-22] MEDS: 0.9 % SODIUM CHLORIDE 250 ml IV (12:35)
[2023-06-22] MEDS: ONDANSETRON 2 MG/ML inj 8 MG IVP (12:36)
[2023-06-22] MEDS: FAMOTIDINE 20 MG, diphenhydrAMINE 50 MG in 0.9 % SODIUM CHLORIDE 100 ml 100 ML 309 MG IVPB (12:53)
[2023-06-22] MEDS: [UNRECOGNIZED DRUG - OTHER] IV (13:21)
[2023-06-22] MEDS: PACLITAXEL IV (13:21)
[2023-06-22] MEDS: MICRON FILTER SET IV (13:21)
[2023-06-22] MEDS: IN LINE IV (13:21)
[2023-06-22] MEDS: TUBING PRIMARY IV (13:21)
[2023-06-29 11:12] VITALS: BP 121/69; PULSE 80; RESP 16; TEMP 35.9; O2SAT 98
[2023-06-29 11:28] LABS: Basophils Percent Auto 0.3 % (0.0-3.0); Eosinophils Percent Auto 0.6 % (0.0-7.0); Hematocrit 34.3 % (33.0-51.0); Hemoglobin* 11.6 gm/dL (12.0-16.0); Immature Granulocytes Pct Auto 0.8 %; Lymphocytes Percent Auto 26.9 % (20-44); Mean Corpuscular HGB Conc 34 gm/dL (32-36); Mean Corpuscular Hemoglobin 35 pg (26-34); Mean Corpuscular Volume 105 fL (80-100); Monocytes Percent Auto 6.5 % (0.0-11.0); Neutrophils Percent Auto 64.9 % (42.0-72.0); Platelet Count* 244 K/uL (140-440); Red Blood Count 3.28 m/uL (4.00-5.20); White Blood Count* 3.53 K/uL (4.50-11.00)
[2023-06-29 11:30] LABS: Slide Review Reflex No
[2023-06-29 11:41] LABS: Albumin* 4.7 g/dL (3.3-5.0); Chloride* 104 mmol/L (96-114); Potassium* 3.9 mmol/L (3.6-5.1); Sodium* 139 mmol/L (135-149)
[2023-06-29 11:43] LABS: Anion Gap 9 mEq/L (7-15); Aspartate Amino Transferase* 31 U/L (12-35); Bilirubin Total* 0.3 mg/dL (0.1-1.5); Carbon Dioxide* 26 mmol/L (20-32); Creatinine* 0.5 mg/dL (0.5-1.5); Est. Creatinine Clearance* 159.93; Estimated Glomerular Filt Rate 126 ml/min
[2023-06-29 11:44] LABS: Alanine Aminotransferase* 45 U/L (4-35); Alkaline Phosphatase* 53 U/L (40-150); Blood Urea Nitrogen* 20 mg/dL (5-24); Calcium* 9.5 mg/dL (8.4-10.6); Glucose* 115 mg/dL (60-115); Total Protein* 7.5 g/dL (6.0-8.3)
[2023-06-29] MEDS: ONDANSETRON 2 MG/ML inj 8 MG IVP (12:24)
[2023-06-29] MEDS: dexAMETHasone 20 MG in 0.9 % SODIUM CHLORIDE 100 ml 100 ML 408 MG IVPB (12:24)
[2023-06-29] MEDS: FAMOTIDINE 20 MG, diphenhydrAMINE 50 MG in 0.9 % SODIUM CHLORIDE 100 ml 100 ML 412 MG IVPB (12:52)
[2023-06-29] MEDS: MICRON FILTER SET IV (13:16)
[2023-06-29] MEDS: TUBING PRIMARY IV (13:16)
[2023-06-29] MEDS: IN LINE IV (13:16)
[2023-06-29] MEDS: PACLITAXEL IV (13:16)
[2023-06-29] MEDS: [UNRECOGNIZED DRUG - OTHER] IV (13:16)
[2023-06-29] MEDS: 0.9 % SODIUM CHLORIDE 250 ml IV (14:58)
[2023-06-29] MEDS: SODIUM CHLORIDE 0.9 % (FLUSH) 10 ML SYRINGE IVF (14:58)
[2023-06-29] MEDS: HEPARIN 500 UNIT/5 ML SYRINGE IVF (14:58)
[2023-07-06 10:34] LABS: Basophils Percent Auto 0.6 % (0.0-3.0); Hematocrit 33.6 % (33.0-51.0); Hemoglobin* 11.4 gm/dL (12.0-16.0); Immature Granulocytes Pct Auto 0.3 %; Lymphocytes Percent Auto 22.8 % (20-44); Mean Corpuscular HGB Conc 34 gm/dL (32-36); Mean Corpuscular Hemoglobin 36 pg (26-34); Mean Corpuscular Volume 106 fL (80-100); Monocytes Percent Auto 6.8 % (0.0-11.0); Neutrophils Percent Auto 68.5 % (42.0-72.0); Platelet Count* 228 K/uL (140-440); RDW Coefficient of Variation % 12.6 % (11.5-15.5); Red Blood Count 3.18 m/uL (4.00-5.20); White Blood Count* 3.11 K/uL (4.50-11.00)
[2023-07-06 10:39] LABS: Slide Review Reflex No
[2023-07-06 11:05] LABS: Albumin* 4.5 g/dL (3.3-5.0)
[2023-07-06 11:06] LABS: Chloride* 101 mmol/L (96-114); Potassium* 3.9 mmol/L (3.6-5.1); Sodium* 137 mmol/L (135-149)
[2023-07-06 11:08] LABS: Alkaline Phosphatase* 44 U/L (40-150); Anion Gap 9 mEq/L (7-15); Aspartate Amino Transferase* 31 U/L (12-35); Bilirubin Total* 0.2 mg/dL (0.1-1.5); Blood Urea Nitrogen* 23 mg/dL (5-24); Carbon Dioxide* 27 mmol/L (20-32); Creatinine* 0.6 mg/dL (0.5-1.5); Est. Creatinine Clearance* 133.27; Estimated Glomerular Filt Rate 121 ml/min; Total Protein* 7.1 g/dL (6.0-8.3)
[2023-07-06 11:09] LABS: Alanine Aminotransferase* 44 U/L (4-35); Calcium* 9.3 mg/dL (8.4-10.6); Glucose* 135 mg/dL (60-115)
[2023-07-06 11:45] LABS: HCG Quantitative* < 2.39 mIU/mL
[2023-07-06] MEDS: ONDANSETRON 2 MG/ML inj 8 MG IVP (12:22)
[2023-07-06] MEDS: 0.9 % SODIUM CHLORIDE 250 ml IV (12:22)
[2023-07-06] MEDS: dexAMETHasone 20 MG in 0.9 % SODIUM CHLORIDE 100 ml 100 ML 408 MG IVPB (12:22)
[2023-07-06] MEDS: FAMOTIDINE 20 MG, diphenhydrAMINE 50 MG in 0.9 % SODIUM CHLORIDE 100 ml 100 ML 309 MG IVPB (12:50)
[2023-07-06] MEDS: MICRON FILTER SET IV (13:08)
[2023-07-06] MEDS: [UNRECOGNIZED DRUG - OTHER] IV (13:08)
[2023-07-06] MEDS: IN LINE IV (13:08)
[2023-07-06] MEDS: PACLITAXEL IV (13:08)
[2023-07-06] MEDS: TUBING PRIMARY IV (13:08)
[2023-07-06] MEDS: SODIUM CHLORIDE 0.9 % (FLUSH) 10 ML SYRINGE IVF (14:30)
[2023-07-06] MEDS: HEPARIN 500 UNIT/5 ML SYRINGE IVF (14:30)
[2023-07-13 11:31] LABS: Basophils Percent Auto 0.7 % (0.0-3.0); Eosinophils Percent Auto 1.1 % (0.0-7.0); Hematocrit 34.6 % (33.0-51.0); Hemoglobin* 11.8 gm/dL (12.0-16.0); Immature Granulocytes Pct Auto 0.4 %; Lymphocytes Percent Auto 28.6 % (20-44); Mean Corpuscular HGB Conc 34 gm/dL (32-36); Mean Corpuscular Hemoglobin 36 pg (26-34); Mean Corpuscular Volume 105 fL (80-100); Monocytes Percent Auto 8.8 % (0.0-11.0); Neutrophils Percent Auto 60.4 % (42.0-72.0); Platelet Count* 227 K/uL (140-440); RDW Coefficient of Variation % 11.8 % (11.5-15.5); Red Blood Count 3.31 m/uL (4.00-5.20); White Blood Count* 2.83 K/uL (4.50-11.00)
[2023-07-13 11:37] LABS: Slide Review Reflex No
[2023-07-13 11:58] LABS: Chloride* 102 mmol/L (96-114)
[2023-07-13 11:59] LABS: Albumin* 4.5 g/dL (3.3-5.0); Sodium* 137 mmol/L (135-149)
[2023-07-13 12:01] LABS: Creatinine* 0.6 mg/dL (0.5-1.5); Est. Creatinine Clearance* 133.27; Estimated Glomerular Filt Rate 121 ml/min
[2023-07-13 12:02] LABS: Alanine Aminotransferase* 52 U/L (4-35); Alkaline Phosphatase* 45 U/L (40-150); Anion Gap 8 mEq/L (7-15); Aspartate Amino Transferase* 33 U/L (12-35); Bilirubin Total* 0.2 mg/dL (0.1-1.5); Blood Urea Nitrogen* 17 mg/dL (5-24); Calcium* 9.2 mg/dL (8.4-10.6); Carbon Dioxide* 27 mmol/L (20-32); Glucose* 125 mg/dL (60-115); Total Protein* 6.8 g/dL (6.0-8.3)
[2023-07-13 12:19] LABS: HCG Quantitative* < 2.39 mIU/mL
[2023-07-13] MEDS: ONDANSETRON 2 MG/ML inj 8 MG IVP (13:04)
[2023-07-13] MEDS: 0.9 % SODIUM CHLORIDE 250 ml IV (13:04)
[2023-07-13] MEDS: HEPARIN 500 UNIT/5 ML SYRINGE IVF (13:04)
[2023-07-13] MEDS: dexAMETHasone 20 MG in 0.9 % SODIUM CHLORIDE 100 ml 100 ML 408 MG IVPB (13:04)
[2023-07-13] MEDS: SODIUM CHLORIDE 0.9 % (FLUSH) 10 ML SYRINGE IVF (13:05)
[2023-07-13] MEDS: FAMOTIDINE 20 MG, diphenhydrAMINE 50 MG in 0.9 % SODIUM CHLORIDE 100 ml 100 ML 309 MG IVPB (13:28)
[2023-07-13] MEDS: [UNRECOGNIZED DRUG - OTHER] IV (13:51)
[2023-07-13] MEDS: MICRON FILTER SET IV (13:51)
[2023-07-13] MEDS: TUBING PRIMARY IV (13:51)
[2023-07-13] MEDS: IN LINE IV (13:51)
[2023-07-13] MEDS: PACLITAXEL IV (13:51)
[2023-07-20 11:08] VITALS: BP 133/80; PULSE 83; RESP 16; TEMP 36; O2SAT 100
[2023-07-20 11:40] LABS: Basophils Percent Auto 0.3 % (0.0-3.0); Eosinophils Percent Auto 0.7 % (0.0-7.0); Hematocrit 36.8 % (33.0-51.0); Hemoglobin* 12.6 gm/dL (12.0-16.0); Lymphocytes Percent Auto 28.9 % (20-44); Mean Corpuscular HGB Conc 34 gm/dL (32-36); Mean Corpuscular Hemoglobin 35 pg (26-34); Mean Corpuscular Volume 103 fL (80-100); Monocytes Percent Auto 7.4 % (0.0-11.0); Neutrophils Percent Auto 61.7 % (42.0-72.0); Platelet Count* 250 K/uL (140-440); RDW Coefficient of Variation % 11.6 % (11.5-15.5); Red Blood Count 3.57 m/uL (4.00-5.20); White Blood Count* 2.98 K/uL (4.50-11.00)
[2023-07-20 11:44] LABS: Slide Review Reflex No
[2023-07-20 12:12] LABS: Albumin* 4.6 g/dL (3.3-5.0); Chloride* 102 mmol/L (96-114); Potassium* 3.8 mmol/L (3.6-5.1); Sodium* 138 mmol/L (135-149)
[2023-07-20 12:13] LABS: HCG Qualitative Serum* Negative (Negative)
[2023-07-20 12:15] LABS: Alanine Aminotransferase* 56 U/L (4-35); Alkaline Phosphatase* 52 U/L (40-150); Anion Gap 9 mEq/L (7-15); Aspartate Amino Transferase* 35 U/L (12-35); Bilirubin Total* 0.2 mg/dL (0.1-1.5); Blood Urea Nitrogen* 18 mg/dL (5-24); Carbon Dioxide* 27 mmol/L (20-32); Creatinine* 0.7 mg/dL (0.5-1.5); Est. Creatinine Clearance* 114.23; Estimated Glomerular Filt Rate 116 ml/min; Glucose* 130 mg/dL (60-115); Total Protein* 7.3 g/dL (6.0-8.3)
[2023-07-20 12:16] LABS: Calcium* 9.4 mg/dL (8.4-10.6)
[2023-07-20] MEDS: dexAMETHasone 20 MG in 0.9 % SODIUM CHLORIDE 100 ml 100 ML 408 MG IVPB (12:46)
[2023-07-20] MEDS: 0.9 % SODIUM CHLORIDE 250 ml IV (12:46)
[2023-07-20] MEDS: SODIUM CHLORIDE 0.9 % (FLUSH) 10 ML SYRINGE IVF (12:46)
[2023-07-20] MEDS: ONDANSETRON 2 MG/ML inj 8 MG IVP (12:46)
[2023-07-20] MEDS: FAMOTIDINE 20 MG, diphenhydrAMINE 50 MG in 0.9 % SODIUM CHLORIDE 100 ml 100 ML 412 MG IVPB (13:03)
[2023-07-20] MEDS: [UNRECOGNIZED DRUG - OTHER] IV (13:29)
[2023-07-20] MEDS: MICRON FILTER SET IV (13:29)
[2023-07-20] MEDS: IN LINE IV (13:29)
[2023-07-20] MEDS: TUBING PRIMARY IV (13:29)
[2023-07-20] MEDS: PACLITAXEL IV (13:29)
[2023-07-27 10:28] LABS: Basophils Percent Auto 0.3 % (0.0-3.0); Eosinophils Percent Auto 0.5 % (0.0-7.0); Hematocrit 36.9 % (33.0-51.0); Hemoglobin* 12.6 gm/dL (12.0-16.0); Immature Granulocytes Pct Auto 0.3 %; Lymphocytes Percent Auto 23.2 % (20-44); Mean Corpuscular HGB Conc 34 gm/dL (32-36); Mean Corpuscular Hemoglobin 35 pg (26-34); Mean Corpuscular Volume 103 fL (80-100); Monocytes Percent Auto 6.8 % (0.0-11.0); Neutrophils Percent Auto 68.9 % (42.0-72.0); Platelet Count* 228 K/uL (140-440); RDW Coefficient of Variation % 11.3 % (11.5-15.5); White Blood Count* 3.96 K/uL (4.50-11.00)
[2023-07-27 10:35] LABS: Slide Review Reflex No
[2023-07-27 10:51] LABS: Albumin* 4.8 g/dL (3.3-5.0); Chloride* 103 mmol/L (96-114); Potassium* 3.9 mmol/L (3.6-5.1); Sodium* 137 mmol/L (135-149)
[2023-07-27 10:54] LABS: Alanine Aminotransferase* 34 U/L (4-35); Alkaline Phosphatase* 50 U/L (40-150); Anion Gap 12 mEq/L (7-15); Aspartate Amino Transferase* 25 U/L (12-35); Bilirubin Total* 0.3 mg/dL (0.1-1.5); Blood Urea Nitrogen* 23 mg/dL (5-24); Carbon Dioxide* 22 mmol/L (20-32); Creatinine* 0.6 mg/dL (0.5-1.5); Est. Creatinine Clearance* 133.27; Estimated Glomerular Filt Rate 121 ml/min; Glucose* 105 mg/dL (60-115); Total Protein* 7.5 g/dL (6.0-8.3)
[2023-07-27 10:55] LABS: Calcium* 9.3 mg/dL (8.4-10.6)
[2023-07-27 11:28] LABS: HCG Quantitative* < 2.39 mIU/mL
[2023-07-27] MEDS: ONDANSETRON 2 MG/ML inj 8 MG IVP (11:47)
[2023-07-27] MEDS: 0.9 % SODIUM CHLORIDE 250 ml IV (11:47)
[2023-07-27] MEDS: dexAMETHasone 20 MG in 0.9 % SODIUM CHLORIDE 100 ml 100 ML 408 MG IVPB (11:53)
[2023-07-27] MEDS: FAMOTIDINE 20 MG, diphenhydrAMINE 50 MG in 0.9 % SODIUM CHLORIDE 100 ml 100 ML 400 MG IVPB (12:11)
[2023-07-27] MEDS: TUBING PRIMARY IV (12:32)
[2023-07-27] MEDS: IN LINE IV (12:32)
[2023-07-27] MEDS: PACLITAXEL IV (12:32)
[2023-07-27] MEDS: [UNRECOGNIZED DRUG - OTHER] IV (12:32)
[2023-07-27] MEDS: MICRON FILTER SET IV (12:32)
[2023-07-27] MEDS: HEPARIN 500 UNIT/5 ML SYRINGE IVF (13:53)
[2023-07-27] MEDS: SODIUM CHLORIDE 0.9 % (FLUSH) 10 ML SYRINGE IVF (13:53)
--- NOTE | 2023-07-27 14:05 | ONC.NURNOTE ---
Discussed with Dr. Mayfield the timing for port removal once adjuvant chemotherapy is completed. The decision was made to get a PET/CT a few weeks after the completion of chemotherapy. If the scan is clear, we will set up port removal. PET/CT scan orders faxed to [facility] with goal to have the scan around 08/[address] Mayfield 09/06 to review results. Patient verbalizes understanding of plan.
[2023-08-03 11:36] VITALS: BP 117/78; PULSE 80; RESP 16; TEMP 36.1; O2SAT 100
[2023-08-03 12:14] LABS: Basophils Percent Auto 0.6 % (0.0-3.0); Eosinophils Percent Auto 0.6 % (0.0-7.0); Hematocrit 36.1 % (33.0-51.0); Hemoglobin* 12.3 gm/dL (12.0-16.0); Immature Granulocytes Pct Auto 0.3 %; Lymphocytes Percent Auto 19.6 % (20-44); Mean Corpuscular HGB Conc 34 gm/dL (32-36); Mean Corpuscular Hemoglobin 35 pg (26-34); Mean Corpuscular Volume 102 fL (80-100); Monocytes Percent Auto 10.2 % (0.0-11.0); Neutrophils Percent Auto 68.7 % (42.0-72.0); Platelet Count* 219 K/uL (140-440); RDW Coefficient of Variation % 11.4 % (11.5-15.5); Red Blood Count 3.53 m/uL (4.00-5.20); White Blood Count* 3.32 K/uL (4.50-11.00)
[2023-08-03 12:21] LABS: Slide Review Reflex No
[2023-08-03 12:48] LABS: Albumin* 4.4 g/dL (3.3-5.0); Chloride* 102 mmol/L (96-114)
[2023-08-03 12:49] LABS: Potassium* 3.5 mmol/L (3.6-5.1); Sodium* 137 mmol/L (135-149)
[2023-08-03 12:51] LABS: Anion Gap 6 mEq/L (7-15); Aspartate Amino Transferase* 27 U/L (12-35); Bilirubin Total* 0.4 mg/dL (0.1-1.5); Carbon Dioxide* 29 mmol/L (20-32); Creatinine* 0.6 mg/dL (0.5-1.5); Est. Creatinine Clearance* 133.27; Estimated Glomerular Filt Rate 121 ml/min; Total Protein* 7.3 g/dL (6.0-8.3)
[2023-08-03 12:52] LABS: Alanine Aminotransferase* 35 U/L (4-35); Alkaline Phosphatase* 46 U/L (40-150); Blood Urea Nitrogen* 21 mg/dL (5-24); Calcium* 9.6 mg/dL (8.4-10.6); Glucose* 111 mg/dL (60-115)
[2023-08-03] MEDS: ONDANSETRON 2 MG/ML inj 8 MG IVP (13:08)
[2023-08-03] MEDS: SODIUM CHLORIDE 0.9 % (FLUSH) 10 ML SYRINGE IVF (13:08)
[2023-08-03] MEDS: 0.9 % SODIUM CHLORIDE 250 ml IV (13:08)
[2023-08-03] MEDS: dexAMETHasone 20 MG in 0.9 % SODIUM CHLORIDE 100 ml 100 ML 408 MG IVPB (13:10)
[2023-08-03] MEDS: FAMOTIDINE 20 MG, diphenhydrAMINE 50 MG in 0.9 % SODIUM CHLORIDE 100 ml 100 ML 420 MG IVPB (13:29)
[2023-08-03] MEDS: [UNRECOGNIZED DRUG - OTHER] IV (13:46)
[2023-08-03] MEDS: TUBING PRIMARY IV (13:46)
[2023-08-03] MEDS: MICRON FILTER SET IV (13:46)
[2023-08-03] MEDS: IN LINE IV (13:46)
[2023-08-03] MEDS: PACLITAXEL IV (13:46)
--- NOTE | 2023-08-03 16:00 | ONC.NURNOTE ---
I saw patient in clinic today. She was asking if she needed to have her clay caster deflated prior to her radiation simulation on 08/30. I spoke with Haydee at [facility] and she confirms that yes, she will need to have her right breast clay caster deflated. Patient will call Dr. Mayo to schedule this.
== END 2023-08-09 23:59 | disposition home or self-care (01) ==
LOC: CCIC 11:30
PROVIDERS: Clinical Nurse Specialist; Internal Medicine Hematology & Oncology; Physician Assistant; PCP Obstetrics & Gynecology; Referring Provider Obstetrics & Gynecology; Visit Provider Internal Medicine Hematology & Oncology
DX: Z51.11 Encounter for antineoplastic chemotherapy (principal); C50.912 Malignant neoplasm of unspecified site of left female breast; Z17.0 Estrogen receptor positive status [ER+]; R79.89 Other specified abnormal findings of blood chemistry; Z90.13 Acquired absence of bilateral breasts and nipples
CPT/HCPCS: 36415; 36591; 80053; 84702; 84703; 85025; 96376; 96377; 96411; 96413; 99202; 99205; 99211; 99212; 99214; 99215; G0463; J2506; J9000; J9070; J1100; J1200; J1453; J1642; J2405; J2469; J7050; J9267; S0028

== ENCOUNTER 2024-01-25 15:00 | Outpatient (RCR) | payer OTHER, SELFPAY ==
[2023-08-10 11:39] VITALS: BP 125/79; PULSE 92; RESP 16; TEMP 36.3; O2SAT 99
[2023-08-10 12:11] LABS: Basophils Absolute Auto 0.01 K/uL (0.00-0.30); Basophils Percent Auto 0.2 % (0.0-3.0); Eosinophils Absolute Auto 0.03 K/uL (0.00-0.50); Eosinophils Percent Auto 0.7 % (0.0-7.0); Hematocrit 36.2 % (33.0-51.0); Hemoglobin* 12.5 gm/dL (12.0-16.0); Immature Granulocytes Abs Auto 0.02 K/uL (0.00-0.30); Immature Granulocytes Pct Auto 0.4 %; Lymphocytes Percent Auto 18.7 % (20-44); Mean Corpuscular HGB Conc 35 gm/dL (32-36); Mean Corpuscular Hemoglobin 35 pg (26-34); Mean Corpuscular Volume 101 fL (80-100); Monocytes Percent Auto 5.5 % (0.0-11.0); Neutrophils Percent Auto 74.5 % (42.0-72.0); Platelet Count* 254 K/uL (140-440); RDW Coefficient of Variation % 11.2 % (11.5-15.5); Red Blood Count 3.59 m/uL (4.00-5.20); White Blood Count* 4.54 K/uL (4.50-11.00)
[2023-08-10 12:26] LABS: Albumin* 4.5 g/dL (3.3-5.0); Chloride* 100 mmol/L (96-114); Sodium* 137 mmol/L (135-149)
[2023-08-10 12:27] LABS: Potassium* 3.5 mmol/L (3.6-5.1)
[2023-08-10 12:28] LABS: Slide Review Reflex No
[2023-08-10 12:29] LABS: Alkaline Phosphatase* 57 U/L (40-150); Anion Gap 7 mEq/L (7-15); Aspartate Amino Transferase* 24 U/L (12-35); Bilirubin Total* 0.3 mg/dL (0.1-1.5); Blood Urea Nitrogen* 20 mg/dL (5-24); Carbon Dioxide* 30 mmol/L (20-32); Creatinine* 0.5 mg/dL (0.5-1.5); Estimated Glomerular Filt Rate 126 ml/min; Total Protein* 7.3 g/dL (6.0-8.3)
[2023-08-10 12:30] LABS: Alanine Aminotransferase* 31 U/L (4-35); Calcium* 9.8 mg/dL (8.4-10.6); Glucose* 143 mg/dL (60-115)
[2023-08-10 12:52] LABS: HCG Qualitative Serum* Negative (Negative)
[2023-08-10] MEDS: FAMOTIDINE 20 MG, diphenhydrAMINE 50 MG in 0.9 % SODIUM CHLORIDE 100 ml 100 ML 309 MG IVPB (13:25)
[2023-08-10] MEDS: ONDANSETRON 2 MG/ML inj 8 MG IVP (13:26)
[2023-08-10] MEDS: dexAMETHasone 20 MG in 0.9 % SODIUM CHLORIDE 100 ml 100 ML 408 MG IVPB (13:45)
[2023-08-10] MEDS: PACLitaxeL 120 MG, TUBING PRIMARY 1 EACH, In-line 0.2 micron filter set 1 EACH in 0.9 %... 270 MG IV (14:07)
[2023-08-10] MEDS: SODIUM CHLORIDE 0.9 % (FLUSH) 10 ML SYRINGE IVF (15:40)
[2023-08-10] MEDS: HEPARIN 500 UNIT/5 ML SYRINGE IVF (15:40)
[2023-08-17 08:19] VITALS: BP 126/76; PULSE 97; RESP 16; TEMP 35.6; O2SAT 100
[2023-08-17 08:35] LABS: Basophils Percent Auto 0.4 % (0.0-3.0); Eosinophils Percent Auto 0.7 % (0.0-7.0); Hematocrit 36.4 % (33.0-51.0); Hemoglobin* 12.4 gm/dL (12.0-16.0); Immature Granulocytes Pct Auto 0.4 %; Lymphocytes Percent Auto 28.5 % (20-44); Mean Corpuscular HGB Conc 34 gm/dL (32-36); Mean Corpuscular Hemoglobin 34 pg (26-34); Mean Corpuscular Volume 100 fL (80-100); Monocytes Percent Auto 10.9 % (0.0-11.0); Neutrophils Percent Auto 59.1 % (42.0-72.0); Platelet Count* 229 K/uL (140-440); RDW Coefficient of Variation % 11.6 % (11.5-15.5); Red Blood Count 3.63 m/uL (4.00-5.20); White Blood Count* 2.74 K/uL (4.50-11.00)
[2023-08-17 08:42] LABS: Slide Review Reflex No
[2023-08-17 08:54] LABS: Chloride* 103 mmol/L (96-114)
[2023-08-17 08:55] LABS: Albumin* 4.4 g/dL (3.3-5.0); Potassium* 3.9 mmol/L (3.6-5.1); Sodium* 138 mmol/L (135-149)
[2023-08-17 08:57] LABS: Anion Gap 9 mEq/L (7-15); Bilirubin Total* 0.3 mg/dL (0.1-1.5); Carbon Dioxide* 26 mmol/L (20-32); Creatinine* 0.6 mg/dL (0.5-1.5); Estimated Glomerular Filt Rate 121 ml/min
[2023-08-17 08:58] LABS: Alanine Aminotransferase* 33 U/L (4-35); Alkaline Phosphatase* 53 U/L (40-150); Aspartate Amino Transferase* 25 U/L (12-35); Blood Urea Nitrogen* 23 mg/dL (5-24); Calcium* 9.5 mg/dL (8.4-10.6); Glucose* 92 mg/dL (60-115); Total Protein* 7.1 g/dL (6.0-8.3)
[2023-08-17 09:06] LABS: HCG Qualitative Serum* Negative (Negative)
[2023-08-17] MEDS: ONDANSETRON 2 MG/ML inj 8 MG IVP (09:31)
[2023-08-17] MEDS: dexAMETHasone 20 MG in 0.9 % SODIUM CHLORIDE 100 ml 100 ML 408 MG IVPB (09:43)
[2023-08-17] MEDS: FAMOTIDINE 20 MG, diphenhydrAMINE 50 MG in 0.9 % SODIUM CHLORIDE 100 ml 100 ML 400 MG IVPB (10:08)
[2023-08-17] MEDS: [UNRECOGNIZED DRUG - OTHER] IV (10:30)
[2023-08-17] MEDS: TUBING PRIMARY IV (10:30)
[2023-08-17] MEDS: IN LINE IV (10:30)
[2023-08-17] MEDS: PACLITAXEL IV (10:30)
[2023-08-17] MEDS: MICRON FILTER SET IV (10:30)
[2023-08-17] MEDS: SODIUM CHLORIDE 0.9 % (FLUSH) 10 ML SYRINGE IVF ×2 (10:45→11:55)
[2023-08-17] MEDS: 0.9 % SODIUM CHLORIDE 250 ml IV (10:45)
[2023-08-17] MEDS: HEPARIN 500 UNIT/5 ML SYRINGE IVF (11:55)
--- NOTE | 2023-09-27 17:54 | ONC.NURNOTE ---
Received call from pt noting recent nausea and vomiting. She is undergoing Rad Tx and reviewed with her care team. They determined her Rad Tx should not be causing nausea and recommended pt call [facility]. Pt notes an episode of nausea/vomiting a few weeks ago; then last she had nausea and diarrhea and attributes that to food poisoning. Yesterday she had an episode of nausea/vomiting. Pt denies heartburn or sour stomach, noting these episodes come on quickly and resolve spontaneously. At baseline she rarely has nausea or any stomach issues. She does note that her period began today, her 1st period since ~ 03/2023. At this point it is not heavier than usual; she denies period/PMS symptoms except some bloating. She is not on any medications, daily or otherwise. No recent diet changes, noting that her and kids are eating the same foods and are well. Reviewed it could potentially be related to resuming her menstrual cycle or something else. If episodes continue past completion of this period, recommend she see PCP. Pt verbalizes understanding.
--- NOTE | 2023-11-25 12:05 | ONC.NURNOTE ---
Call to patient in follow up to new start Tamoxifen. Patient states she is not having any side effects and denies questions or concerns.
--- NOTE | 2024-01-30 09:53 | ONC.NURNOTE ---
Orders for PET/CT faxed to [facility]. Patient scheduled for 03/15/24.
== END 2024-02-06 23:59 | disposition home or self-care (01) ==
LOC: CCIC 15:00
PROVIDERS: Clinical Nurse Specialist; Referring Provider Obstetrics & Gynecology; Visit Provider Internal Medicine Hematology & Oncology
DX: C50.912 Malignant neoplasm of unspecified site of left female breast (principal); Z17.0 Estrogen receptor positive status [ER+]; R79.89 Other specified abnormal findings of blood chemistry; Z90.13 Acquired absence of bilateral breasts and nipples
CPT/HCPCS: 36415; 36591; 80053; 84703; 85025; 96376; 96413; 99213; 99214; 99215; G0463; J1100; J1200; J1642; J2405; J7050; J9267; S0028

== ENCOUNTER 2024-01-27 10:22 | Outpatient (CLI) | payer OTHER, SELFPAY ==
--- NOTE | 2024-01-27 10:15 | CRLHL7_ITS ---
For Patients: As a result of the Century Cures Act, medical imaging exams and procedure reports are released immediately into your electronic medical record. You may view this report before your referring provider. If you have questions, please contact your health care provider. Indication: Left axillary lump Technique: Grayscale ultrasound of the left axillary soft tissues performed. Comparison: CT-PET 09/01/2023 Findings: Normal subcutaneous tissues within the left axilla. No fluid collection or adenopathy. Impression: No suspicious findings. Dictated by Jovon Ragland MD @ 01/27/2024 12:06:28 PM (Electronically Signed)
--- OUTSIDE RECORDS SUMMARY | 2024-01-27 10:24 | XMS_ITS | Referral Summary ---
Author Organization [facility] Address [address] [place] [address] Care Team Providers Care Surgical Physician Assistant Name Role Phone Elsewhere, Pcp Primary Care Provider Unavailabl e Source Comments Patient records contain information from all sites at [facility]. For routine questions regarding patient records, call [phone] during business hours, M-F 8:00 AM - 5:00 PM Central Time. Record requests for emergency care only can be directed to [phone] at any time.[facility] Allergies No known active allergies Medications Medication Sig Dispensed Refills Start Date End Date Status multivitamin tablet Take 1 tablet by mouth daily. Active ibuprofen (ADVIL,MOTRIN) 200 mg tablet Take 600 mg by mouth every 6 (six) hours. 01/27/2023 Active LORazepam (ATIVAN) 0.5 mg tablet 03/10/2023 Active ondansetron (ZOFRAN) 4 mg tablet 03/10/2023 Active prochlorperazine (COMPAZINE) 10 mg tablet Take by mouth as needed. 03/10/2023 Active mometasone (ELOCON) 0.1 % cream Apply 1 Application topically daily. Apply to skin within the treatment field. 45 g 08/31/2023 Active Active Problems Problem Noted Date Diagnosed Date Malignant Neoplasm Of Overla pping Sites Of Left Female Breast 02/10/2023 Cancer Staging:Pathologic:Stage IIA(pT2, pN0(sn), cM0, G2, ER+, [place]-, HER2-) - Unsigned Immunizations Name Administration Dates Next Due 4vHPV (discontinued) 12/05/2014,07/19/2014,05/28 DTP 05/26/1990, 9,02/26/1989, 989 DTaP (Infanrix, Tripedia) 02/01/1994 Hib (PRP-D) (discontinued) 10/20/1990 MMR 09/06/2000,05/26/1990 SARS-COV-2 (COVID-19) - PFIZ ER (Discontinued)(12 years or older) 04/02/2021,03/03/2021 Tdap 12/12/2020,05/04/2017,03/22/2011 influenza vaccine quad (FLUZONE/FLUARIX) (6 months and older)(PF) 04/09/2022,04/10/2021,04/04/2020, 019,04/24/2018,03/23/2016 Social History Tobacco Use Types Packs/Day Years Used Date Smoking Tobacco: Never Passive Smoke Exposure: Never Smokeless Tobacco: Never Alcohol Use Standard Drinks/Week Comments Yes 0 (1 standard drink = 0.6 oz pur e alcohol) rare Nutrition Answer Date Recorded Nutrition: EVOO Fat Source Unknown 08/25 Nutrition: Servings of Fruits/Vegetables per Day Not on file 08/25/2020 Dental Answer Date Recorded Dental: Regular Dentist Unknown 08/26/19 21 Sex and Gender Information Value Date Recorded Sex Assigned at Not on file Gender Identity Not on file Sexual Orientation Not on file Last Filed Vital Signs Vital Sign Reading Time Taken Comments Blood Pressure 129/68 08/31/2023 1:54 PM CDT Pulse 78 08/31/2023 1:54 PM CDT Temperature 36.5 ??C (97.7 ??F) 10/04/2023 8:24 AM CD T Respiratory Rate 16 08/08/2023 2:45 PM OPTICAL SALES ASSOCIATE Oxygen Saturation 99% 08/08/2023 2:45 PM OPTICAL SALES ASSOCIATE Inhaled Oxygen Concentration - - Weight 87.8 kg (193 lb 9 oz) 10/04/2023 8:24 AM CDT Height 172.8 cm (5' 8.03) 05/22/2021 11:[address] Body Mass Index 29.4 05/22/2021 11:14 AM OPTICAL SALES ASSOCIATE Plan of Treatment Not on file Care Teams Surgical Physician Assistant Relationship Specialty Start Date End Date Elsewhere, Pcp PCP - General Family Medicine 04/24/18
--- OUTSIDE RECORDS SUMMARY | 2024-01-27 10:24 | XMS_ITS | Encounter Summary ---
Author Organization [facility] Address [address] [place] [address] Care Team Providers Care Corporate Officer Name Role Phone Elsewhere, Pcp Primary Care Provider Unavailabl e Encounter Details Date Type Department Care Team (Late st Contact Info) Description 10/07/2023 Documentation Department of Radiation Oncology in [place], [place] [address] [place] [phone] Genesis Elena M.D. [address] [place] [address] Social History Tobacco Use Types Packs/Day Years [...] on file Sexual Orientation Not on file documented as of this encounter Miscellaneous Notes * Radiation Completion Notes - Flaquita Lam RJoséN. - 10/07/2023 11:59 PM CDT DIAGNOSIS: 1. Malignant Neoplasm Of Overlapping Sites Of Left Female Breast (HCC) Attending Physician: Genesis Elena M.D. Treatment Intent: Curative Concomitant Therapy: None Single Plan Treatment Course: 1xBreast Plan ID Fractions Dose / Fraction (cGy) Dose Treated (cGy) Dose Planned (cGy) First Treatment Last Treatment Elapsed Days [id number] 200 1600 1600 09/05/2023 09/14/2023 9 [id number] 200 1800 1800 09/15/2023 09/27/2023 12 [id number] 200 1600 1600 09/28/2023 10/07/2023 9 Treatment Site Summary 5000 5000 09/05/2023 10/07/2023 32 Course Summary 09/05/2023 10/07/2023 32 Radiation Modality: Photons CLINICAL SUMMARY Mrs. Carly Lim completed radiation treatment as planned without interruptions. The courseof treatment was tolerated well. The patient experienced toxicities of grade 1 dermatitis during radiation treatment. TREATMENT RESPONSE: Response to treatment will be determined by post-treatment imaging and/or laboratory work. RECOMMENDED FOLLOW UP: Primary Medical Oncologist. Follow up will be with Dr. Mayfield. Signed by: Flaquita Lam R.N., 10/28/2023 4:[address] PM [address] [facility] [address] [place] [address] documented in this encounter Plan of Treatment Not on file documented as of this encounter Visit Diagnoses Diagnosis Malignant Neoplasm Of Overlapping Sites Of Left Female Breast (HCC)- Primary documented in this encounter Care Teams Corporate Officer Relationship Specialty Start Date End Date Elsewhere, Pcp PCP - General Family Medicine 04/24/18 documented as of this encounter
--- OUTSIDE RECORDS SUMMARY | 2024-01-27 10:24 | XMS_ITS | Clinical Summary ---
Author Organization [facility] Address [address] [place] [address] Care Team Providers Care Vp Packaging Name Role Phone Elsewhere, Pcp Primary Care Provider Unavailabl e Source Comments Patient records contain information from all sites at [facility]. For routine questions regarding patient records, call [phone] during business hours, M-F 8:00 AM - 5:00 PM Central Time. Record requests for emergency care only can be directed to [phone] at any time.[facility] Allergies No known active allergies Medications Medication [...] Cancer Staging:Pathologic:Stage IIA(pT2, pN0(sn), cM0, G2, ER+, [place]-, HER2-) - Unsigned Immunizations Name Administration Dates Next Due 4vHPV (discontinued) 12/05/2014,07/19/2014,05/28 DTP 05/26/1990, 9,02/26/1989, 989 DTaP (Infanrix, Tripedia) 02/01/1994 Hib (PRP-D) (discontinued) 10/20/1990 MMR 09/06/2000,05/26/1990 SARS-COV-2 (COVID-19) - PFIZ ER (Discontinued)(12 years or older) 04/02/2021,03/03/2021 Tdap 12/12/2020,05/04/2017,03/22/2011 influenza vaccine quad (FLUZONE/FLUARIX) (6 months and older)(PF) 04/09/2022,04/10/2021,04/04/2020, 019,04/24/2018,03/23/2016 Family History Medical History Relation Name Comments Breast cancer Aunt Relation Name Status Comments Aunt Social History Tobacco Use Types Packs/Day Years [...] T Respiratory Rate 16 08/08/2023 2:45 PM SLIP BRIDGE OPERATOR Oxygen Saturation 99% 08/08/2023 2:45 PM SLIP BRIDGE OPERATOR Inhaled Oxygen Concentration - - Weight 87.8 kg (193 lb 9 oz) 10/04/2023 8:24 AM CDT Height 172.8 cm (5' 8.03) 05/22/2021 11:[address] Body Mass Index 29.4 05/22/2021 11:14 AM SLIP BRIDGE OPERATOR Plan of Treatment Health Maintenance Due Date Last Done Comments HIV Screening 1988 Hepatitis C Screening 1988 Lipid (Cholesterol) Screening 1988 Pneumococcal vaccine (0-64 y ears) (1 of 2 - PCV) 1994 Hepatitis B Vaccines (1 of 3 - 19+ 3-dose series) 09/21/2007 Zoster Vaccines (1 of 2) 09/21/2007 COVID-19 Vaccine (3 - Pfizer risk series) 04/30/2021 04/02/2021, 03/03/2021 Depression Screening (Annual PHQ-2) 06/20/2023 Cervical Cancer Screening 07/17/2023 07/17/2020, 12/2017 Influenza Vaccine (#1) 2024 , 04/10/2021, 04/04/2020, Additional history exists DTaP,Tdap,and Td Vaccines (9 - Td or Tdap) 12/12/2030 12/12/2020, 05/04/2017, 03/22/2011, Additional history exists HPV Vaccines Completed 12/05/2014, 11/18, 07/19/2014, Additional history exists Care Teams Vp Packaging Relationship Specialty Start Date End Date Elsewhere, Pcp PCP - General Family Medicine 04/24/18
--- OUTSIDE RECORDS SUMMARY | 2024-01-27 10:24 | XMS_ITS ---
Author Organization [facility] Address [address] [place] [address] Care Team Providers Care Cattle Tester Name Role Phone Elsewhere, Pcp Primary Care Provider Unavailabl e Active Problems Problem Noted Date Diagnosed Date Malignant Neoplasm Of Overla pping Sites Of Left Female Breast 02/10/2023 Cancer Staging:Pathologic:Stage IIA(pT2, pN0(sn), cM0, G2, ER+, [place]-, HER2-) - Unsigned Current Oncology Plans No current plan information found. Past Plans No past plan information found. Radiation Treatments * Plan Last Treated On Elapsed Days Fractions Treated Prescribed Fraction Dose Prescribed Total Dose [id number] 10/07/2023 32 8 of 8 200 cGy 1,600 cGy [id number] 09/27/2023 22 9 of 9 200 cGy 1,800 cGy [id number] 09/14/2023 9 8 of 17 200 cGy 3,400 cGy Reference Point Last Treated On Elapsed Days Session Dose Total Dose [id number] 10/07/2023 32 200 cGy 5,000 cGy
--- OUTSIDE RECORDS SUMMARY | 2024-01-27 10:24 | XMS_ITS ---
Author Organization [facility] Address [address] [place] [address] Care Team Providers Care Rear Load Truck Driver Name Role Phone Unavailable Unavailable Unavailable Surgery Details Not on file Complications Check Surgery Details section. Procedure Estimated Blood Loss Check Surgery Details section. Procedure Findings Check Surgery Details section. Procedure Specimens Taken Check Surgery Details section.
--- OUTSIDE RECORDS SUMMARY | 2024-01-27 10:24 | XMS_ITS | Clinical Summary ---
Author Organization [facility] Address [place], [place] [address] Care Team Providers Care Enterprise Account Manager Name Role Phone [facility] Primary Care Provider Unavail able Geovanna Chatman RN Unavailable [phone] Maite Ireland MD Unavailable Bakari Mayo MD Unavailable [phone] Jodi Mayfield MD Unavailable [phone] Allergies No known active allergies Medications Medication Sig Dispensed Refills Start Date End Date Status ibuprofen (ADVIL; MOTRIN) 200 mg tabletIndications:S/ P breast reconstruction, bilateral Take 3 Tablets (600 mg) by mouth every 6 hours. Take it scheduled. 100 Tablet 01/27/2023 Active tamoxifen (NOLVADEX) 20 mg tablet Take 20 mg by mouth once daily. Active Active Problems Problem Noted Date Diagnosed Date Malignant neoplasm of upper- outer quadrant of left breast in female, estrogen receptor positive 12/29/2022 Cancer Staging:Clinical:Stage IIA(cT2, cN0, cM0, G2, ER+, MT-, HER2-) - Signed by Maite Ireland MD on 12/29/2022 Pathologic stage from 01/27/2023:Stage IB(pT2, pN0, cM0, G3, ER+, MT+, HER2-) - Signed by America Hargrove PA on 02/07/2023 Other acne 03/22/2011 Contraception 03/22/2011 Patent foramen ovale 01/27/2009 Overview: Noted on echocardiogram 12/2008 Encounters Date Type Department Care Team Description 01/26/2024 8:30 AM CDT Office Visit [facility] [place] [address] [place] [address] America Barron PA Follow Up (History of breast cancer ) 01/26/2024 Telephone [facility] [address] [place] [phone] Flaquita Ferrari PA Appointment Request (post op) 01/26/2024 Travel 01/25/2024 Travel 01/18/2024 Telephone [facility] [place] [address] [place] [address] Damaris Bliss NEONATAL NURSE PRACTITIONER Social Work Contact (Mental Health Therapy Referral) from Last 3 Months Immunizations Name Administration Dates Next Due DTP 05/26/1990,05/24/1989,02/26/1989 ,1988 DTaP 02/01/1994,02/01/1994 HIB PRP-D (ProHIBIT) 10/20/1990 Hepatitis B (Peds) 04/27/1999,11/20/1998, 999 Human Papilloma Virus Vaccine 12/05/2014, 015,05/28/2014 MMR 09/06/2000,05/26/1990 Oral Polio Vaccine 02/01/1994, 4,05/26/1990,02/26/1989, Td (Age >=7 Years) 09/06/2000 Tdap 03/22/2011 Family History Medical History Relation Name Comments Cancer-breast Maternal Aunt Diabetes Mother Heart Disease Mother transposition of the great vessels Cancer-colon No Family History Relation Name Status Comments Father Alive Maternal Aunt Alive Mother Alive Social History Tobacco Use Types Packs/Day Years Used Date Smoking Tobacco: Never Smokeless Tobacco: Never Tobacco Cessation:Counseling Given: Yes Alcohol Use Standard Drinks/Week Comments Yes 0 (1 standard drink = 0.6 oz pur e alcohol) rare Social Connections Answer Date Recorded Frequency of Communication with Friends and Fami ly Not on file 02/01/2023 Sex and Gender Information Value Date Recorded Sex Assigned at Not on file Gender Identity Not on file Sexual Orientation Not on file Obstetrics History Para Term AB IAB SAB Ectopic Multiple Livin g Live Births 0 0 0 0 0 0 0 0 0 0 Last Filed Vital Signs Vital Sign Reading Time Taken Comments Blood Pressure 124/69 01/26/2024 8:31 AM CDT Pulse 82 01/26/2024 8:31 AM CDT Temperature 36.2 ??C (97.2 ??F) 01/26/2024 8:31 AM CD T Respiratory Rate 18 01/26/2024 8:31 AM CDT Oxygen Saturation 99% 05/02/2023 10:44 AM [employer] Inhaled Oxygen Concentration - - Weight 81.2 kg (179 lb) 01/26/2024 8:31 AM CDT Height 172.7 cm (5' 8) 01/26/2024 8:31 AM CDT Body Mass Index 27.22 01/26/2024 8:31 AM CDT Plan of Treatment Upcoming Encounters Date Type Department Care Team (Late st Contact Info) Description 02/09/2024 3:00 PM CDT Telemedicine [facility] [address] [place] [address] [place] [address] 03/15/2024 8:00 AM CDT Appointment [facility] [address] [place] [address] 04/24/2024 3:00 PM [employer] Office Visit [facility] [address] [facility] [address] [place] [phone] Flaquita Ferrari PA [address] [facility] [address] [place] [address] 01/24/2025 8:30 AM CDT Office Visit [facility] [address] [place] [address] America Barron PA [address] [place] [address] Health Maintenance Due Date Last Done Comments Pneumococcal series for age 6-64 (1 of 2 - PCV) 1994 Depression screening for age 12+ 2000 HIV for age 15-65 09/21/2003 Hepatitis C screening for ag e 18-79 2006 Tetanus booster 03/22/2021 03/22/2011, 09/06/2000 COVID-19 vaccine series (3 - Pfizer risk series) 04/30/2021 04/02/2021, 03/03/2021 Pap test for age 21-65 07/17/2023 , 07/17/2020, 08/24/2017, Additional history exists Influenza for age 9-49 02/19/2024 BMI (ht and wt on same day) for age 18+ 01/25/2025 01/26/2024, 08/25/2023, 08/18/2023, Additional history exists Tdap Completed 03/22/2011 Medical Devices Implanted Type Area Pan Reclaim Processor Device Identifier Shelf Expiration Date Model / Serial / Lot Medicaid Eligibility Specialist Breast 500cc Natrelle Smooth Mod Extra W/Fourte - [id number] Implanted:Qty: 1 on 01/27/2023 by Bakari Mayo MD at [facility] Explanted:at [facility] (Quantity not on file) Right: Breast [employer] - [employer] 06/04/2024 133S-MX-13 -T / [id number] / Medicaid Eligibility Specialist Breast 500cc Natrelle Smooth Mod Extra W/Fourte - [id number] Implanted:Qty: 1 on 01/27/2023 by Bakari Mayo MD at [facility] Explanted:at [facility] (Quantity not on file) Left: Breast [employer] - [employer] 08/17/2024 133S-MX-13 -T / [id number] / Procedures Procedure Name Priority Date/Time Associated Diagnosis Comments INBOUND CUSTOMER SERVICE REPRESENTATIVE THIN PREP PAP SCREEN IMAGED Routine 07/17/2020 9:40 AM [employer] from Last 3 Months or Most Recently Relevant to Health Maintenance Results * INBOUND CUSTOMER SERVICE REPRESENTATIVE THIN PREP PAP SCREEN IMAGED (07/17/2020 9:40 AM [employer]) Case Report Gynecologic Cytology Report ? Case: [id number] ? Authorizing Provider: ??Kim Bellamy PA-C ?Collected: ? 07/17/2020 0940 ? Ordering Location: ? [facility] ?Received: ?07/18/2020 1245 ? First Screen: ?Emelina Rajput ? Specimen: ?INBOUND CUSTOMER SERVICE REPRESENTATIVE ThinPrep Vial Screening, Cervical/Vaginal ? 07/25/2020 2:53 PM [employer] [facility] INTERPRETATION/ RESULT NEGATIVE FOR INTRAEPITHELIAL LESION OR MALIGNANCY (NIL) (none) 07/25/2020 2:53 PM [employer] [facility] IMEN ADEQUACY Satisfactory for evaluation No endocervical component seen in a patient 07/25/2020 2:53 PM [employer] [facility] HPV REQUEST HPV and PAP 07/25/2020 2:53 PM [employer] [facility] Date of LMP 05/15/2021 07/25/2020 2:53 PM [employer] [facility] Last Pap Date 08/24/2017 07/25/2020 2:53 PM [employer] [facility] Last Pap Result NIL 2:53 PM [employer] [facility] Menstrual Status 07/25/2020 2:53 PM [employer] [facility] Additional Information 07/25/2020 2:53 PM [employer] [facility] Comment: Interpreted at [facility] - [address], [place] [address] Automated Review Successful 07/25/2020 2:53 PM [employer] [facility] Comment:Specimen processed s uccessfully by automated child support case officer device, ThinPrep Imaging System, [employer] ANCILLARY TESTING INBOUND CUSTOMER SERVICE REPRESENTATIVE HPV Ordered, Please see separate report 07/25/2020 2:53 PM [employer] [facility] Note The pap test is a screening technique, not a diagnostic procedure. It is used primarily to screen for squamous cancers and precursor lesions. Published studies have shown that it is subject to both false negative and false positive results. The pap test should not be used as the sole means to diagnose or exclude pre-malignant and malignant lesions. 07/25/2020 2:53 PM [facility] Other (Cervical/Vagina l) 07/17/2020 9:40 AM [employer] 07/18/2020 12:45 PM [employer] September [facility] [address] [place] [address], [place] from Last 3 Months or Most Recently Relevant to Health Maintenance Advance Directives * Full Code (Latest Code Status on File) Date Activated Date Inactivated Comments 01/27/2023 5:14 PM 01/27/2023 11:01 PM Question Answer Comments Code Status Discussion: Reviewed Preferences * Full Code Date Activated Date Inactivated Comments 01/27/2023 9:48 AM 01/27/2023 5:14 PM Question Answer Comments Code Status Discussion: Unable to Assess Preferences, Provider to review later Care Teams Enterprise Account Manager Relationship Specialty Start Date End Date Jonas Silver PCP - General 04/14/16 Geovanna Chatman, RN [address] [place] [address] Nurse Navigator - Oncology Registered Nurse 12/27/22 Maite Ireland MD [address] [place] [address] Surgery - General 12/27/22 Bakari Mayo MD [address] [facility] [address] [place] [address] Surgery - Plastic 12/29/22 Jodi Mayfield MD [address] [place] [phone] Oncology 12/29/22
== END 2024-01-27 10:23 | disposition home or self-care (01) ==
LOC: US 10:23
PROVIDERS: Visit Provider Internal Medicine Hematology & Oncology
DX: C50.912 Malignant neoplasm of unspecified site of left female breast (principal)
CPT/HCPCS: 76882

== ENCOUNTER 2024-04-19 15:18 | Outpatient (CLI) | payer OTHER, SELFPAY ==
--- OUTSIDE RECORDS SUMMARY | 2024-04-19 15:21 | XMS_ITS ---
Author Organization [facility] Address [address] [place] [address] Care Team Providers Care Soda Dispenser Name Role Phone Elsewhere, Pcp Primary Care Provider Unavailabl e Active Problems * This document contains information received from the source organization and may not represent a complete record from that organization. Problem Noted Date Diagnosed Date Malignant Neoplasm Of Overla pping Sites Of Left Female Breast 02/10/2023 Cancer Staging:Pathologic:Stage IIA(pT2, pN0(sn), cM0, G2, ER+, [place]-, HER2-) - Unsigned Current Oncology Plans No current plan information found. Past Plans No past plan information found. Radiation Treatments * Plan Last Treated On Elapsed Days Fractions Treated Prescribed Fraction Dose Prescribed Total Dose [id number] 10/07/2023 32 8 of 8 200 cGy 1,600 cGy [id number] 09/27/2023 22 9 of 9 200 cGy 1,800 cGy [id number] 09/14/2023 9 8 of 17 200 cGy 3,400 cGy Reference Point Last Treated On Elapsed Days Session Dose Total Dose [id number] 10/07/2023 32 200 cGy 5,000 cGy
--- OUTSIDE RECORDS SUMMARY | 2024-04-19 15:21 | XMS_ITS ---
Author Organization [facility] Address [address] [place] [address] Care Team Providers Care Research Mechanic Name Role Phone Unavailable Unavailable Unavailable Surgery Details Not on file Complications Check Surgery Details section. Procedure Estimated Blood Loss Check Surgery Details section. Procedure Findings Check Surgery Details section. Procedure Specimens Taken Check Surgery Details section.
--- OUTSIDE RECORDS SUMMARY | 2024-04-19 15:21 | XMS_ITS | Clinical Summary ---
Author Organization [facility] Address [place], [place] [address] Care Team Providers Care Staking Technician Name Role Phone Geovanna Chatman RN Unavailable [phone] Maite Ireland MD Unavailable Bakari Mayo MD Unavailable [phone] Jodi Mayfield MD Unavailable [phone] [facility] Primary Care Pr ovider Allergies No known active allergies Medications Medication [...] Cancer Staging:Clinical:Stage IIA(cT2, cN0, cM0, G2, ER+, PA-, HER2-) - Signed by Maite Ireland MD on 12/29/2022 Pathologic stage from 01/27/2023:Stage IB(pT2, pN0, cM0, G3, ER+, PA+, HER2-) - Signed by America Hargrove PA on 02/07/2023 Other acne 03/22/2011 Contraception 03/22/2011 Patent foramen ovale 01/27/2009 Overview (01/27/2009): Noted on echocardiogram 12/2008 Encounters Date Type Department Care Team Description 04/18/2024 8:15 AM CDT Office Visit [facility] [address] [facility] [address] [place] [address] Flaquita Ferrari PA Follow Up (Breast Reconstruction, Stage 2) 04/18/2024 Travel 04/17/2024 3:00 PM CDT Telemedicine [facility] [address] [place] [address] Damaris Bliss LICSW Individual Therapy (Follow up-virtual visit ) 04/15/2024 Travel 03/15/2024 3:00 PM CDT Telemedicine [facility] [address] [place] [address] Damaris Bliss LICSW Individual Therapy (Follow up-virtual visit ); Trmt Plan (New) 03/15/2024 7:41 AM CDT - 03/15/2024 11:59 PM CDT Hospital Encounter 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, unspecified estrogen receptor status (HC) 03/14/2024 Travel 02/09/2024 3:00 PM CDT Telemedicine [facility] [address] [place] [address] Damaris Bliss LICSW Mental Health Intake (Diagnostic Assessment) 01/26/2024 8:30 AM CDT Office Visit [facility] [address] [facility] [address] [place] [address] America Barron PA Follow Up (History of breast cancer ) 01/26/2024 Telephone [facility] [address] [place] [phone] Flauqita Ferrari PA Appointment Request (post op) 01/26/2024 Travel 01/25/2024 Travel 01/18/2024 Telephone [facility] [address] [place] [address] Damaris Bliss LICSW Social Work Contact (Mental Health Therapy Referral) [...] = 0.6 oz pur e alcohol) rare PHQ-2 Answer Date Recorded PHQ-2 TOTAL SCORE 0 02/07/2024 Sex and Gender Information Value Date Recorded Sex Assigned at Not on file Gender Identity Not on file Sexual Orientation Not on file Obstetrics History Last Filed Vital Signs Vital Sign Reading Time Taken Comments Blood Pressure 128/76 04/18/2024 8:18 AM CDT Pulse 78 04/18/2024 8:18 AM CDT Temperature 36.2 ??C (97.2 ??F) 01/26/2024 8 :31 AM CDT Respiratory Rate 16 04/18/2024 8:18 AM CDT Oxygen Saturation 98% 04/18/2024 8:1 8 AM CDT Inhaled Oxygen Concentration - - Weight 80.5 kg (177 lb 6.4 oz) 04/18/2024 8:18 AM CDT with boots on Height 173.4 cm (5' 8.25) 04/18/2024 8 :18 AM CDT with boots on Body Mass Index 26.78 04/18/2024 8:18 AM CDT Plan of Treatment Upcoming Encounters Date Type Department Care Team (Late st Contact Info) Description 05/01/2024 3:45 PM COLORER HIDES AND SKINS Office Visit [facility] [address] [facility] [address] [place], [place] [id number] Ko Barros MD [address] [facility] [address] [place] [address] 01/24/2025 8:30 AM CDT Office Visit [facility] [address] [facility] [address] [place] [address] America Barron PA [address] [place], [place] [id number] Scheduled Procedures Name Priority Associated Diagnoses Date/Ti me RECONSTRUCTION BREAST WITH IMPLANT Tier 3 Acquired absence of breast and absent nipple, bilateral Personal history of breast cancer Adverse effect of radiation, initial encounter Health Maintenance Due Date Last Done Comments Pneumococcal series for age 6-64 (1 of 2 - PCV) 1994 HIV for age 15-65 09/21/2003 Hepatitis C screening for ag e 18-79 2006 Tetanus booster 03/22/2021 03/22/2011, 09/06/2000 COVID-19 vaccine series (3 - Pfizer risk series) 04/30/2021 04/02/2021, 03/03/2021 Pap test for age 21-65 07/17/2023 , 07/17/2020, 08/24/2017, Additional history exists Influenza for age 9-49 02/19/2024 Depression screening for age 12+ 02/08/2025 02/09/20 24, 02/07/2024 BMI (ht and wt on same day) for age 18+ 04/18/2025 04/18/2024, 01/26/2024, 08/25/2023, Additional history exists Tdap Completed 03/22/2011 Medical Devices Implanted Type Area Land Measurer Device Identifier Shelf Expiration Date Model / Serial / Lot Mobility Scooter Repairer Breast 500cc Natrelle Smooth Mod Extra W/Fourte - [id number] Implanted:Qty: 1 on 01/27/2023 by Bakari Mayo MD at [facility] Explanted:at [facility] (Quantity not on file) Right: Breast [employer] 06/04/2024 133S-MX-13 -T / [id number] / Mobility Scooter Repairer Breast 500cc Natrelle Smooth Mod Extra W/Fourte - [id number] Implanted:Qty: 1 on 01/27/2023 by Bakari Mayo MD at [facility] Explanted:at [facility] (Quantity not on file) Left: Breast [employer] 08/17/2024 133S-MX-13 -T / [id number] / Procedures Procedure Name Priority Date/Time Associated Diagnosis Comments PET CT SKULL BASE TO MID THIGH SUBSEQUENT TREAT Routine 03/15/2024 8:51 AM CDT Malignant neoplasm of upper-outer quadrant of left female breast, unspecified estrogen receptor status (HC) SELF PROPELLED HOT MIX ROLLER OPERATOR THIN PREP PAP SCREEN IMAGED Routine 07/17/2020 9:40 AM COLORER HIDES AND SKINS from Last 3 Months or Most Recently Relevant to Health Maintenance Results * PET CT SKULL BASE TO MID THIGH SUBSEQUENT TREAT (03/15/2024 8:51 AM CDT) Anatomical Region Laterality Modality Positron Emissio n Tomography (PET) 03/15/2024 7:52 PM CDT Impressions 03/15/2024 7:52 PM CDT 1. No evidence of metabolically active malignancy. Dictated by Vimal Espinoza MD @ 03/15/2024 7:52:23 PM (Electronically Signed) Narrative 03/15/2024 7:52 PM CDT For Patients: ??As a result of the Cures Act, medical imaging exams and procedure reports are released immediately into your electronic medical record. ??You may view this report before your referring provider. ??If you have questions, please contact your health care provider. EXAM: FDG PET-CT Skull Base to Thighs CLINICAL INFORMATION: 33-year-old woman with history of left breast cancer. Subsequent treatment response. TECHNIQUE: Radiopharmaceutical: 18F-fluorodeoxyglucose (18F-FDG) Dose: 12.3 MilliCurie. Blood glucose: 64 mg/dL. Image acquisition: At approximately 60 minutes following IV tracer administration via a right hand vein, positron emission tomography was performed from the skull base through the mid thigh. Non-contrast low-dose helical CT imaging was performed over the same range without breath-hold for attenuation correction of PET images and anatomic correlation; it is neither sufficient, nor should it be substituted for diagnostic purposes. COMPARISON: 09/01/[address] FINDINGS: Mediastinal blood pool FDG uptake: SUVMax 3.0 (Image 87) Liver background parenchymal FDG uptake: ??SUVMax 3.7 (Image 144) HEAD AND NECK: No abnormal FDG uptake in the imaged head and neck. CHEST: Ports and devices: None. ? Lungs: No abnormal FDG uptake. ? Pleura: No abnormal FDG uptake. ? Lymph Nodes: No abnormal FDG uptake. ?? Mediastinum: No abnormal FDG uptake. ?? Breasts/Chest Wall: No abnormal FDG uptake. Bilateral mastectomies with reconstruction. ?? ABDOMEN/PELVIS: Liver/biliary system: No abnormal FDG uptake. ? Pancreas: No abnormal FDG uptake. ?? Spleen: No abnormal FDG uptake. ?? Adrenal Glands: No abnormal FDG uptake. ?? Kidneys: No abnormal FDG uptake. ?? Bowel: No abnormal FDG uptake. ?? Mesentery, Omentum and Peritoneum: No abnormal FDG uptake. ?? Pelvic Organs: No abnormal FDG uptake. ?? Lymph Nodes: No abnormal FDG uptake. ?? MUSCULOSKELETAL: No abnormal focal increased FDG uptake. Procedure Note Vimal Espinoza MD - 03/15/2024 For Patients: As a result of the 21st Century Cures Act, medical imagingexams and procedure reports are released immediately into your electronicmedical record. You may view this report before your referring provider.If you have questions, please contact your health care provider. EXAM: FDG PET-CT Skull Base to Thighs CLINICAL INFORMATION: 33-year-old woman with history of left breast cancer. Subsequent treatmentresponse. TECHNIQUE: Radiopharmaceutical: 18F-fluorodeoxyglucose (18F-FDG) Dose: 12.3 MilliCurie. Blood glucose: 64 mg/dL. Image acquisition: At approximately 60 minutes following IV traceradministration via a right hand vein, positron emission tomography wasperformed from the skull base through the mid thigh. Non-contrast low-dosehelical CT imaging was performed over the same range without breath-holdfor attenuation correction of PET images and anatomic correlation; it isneither sufficient, nor should it be substituted for diagnosticpurposes. COMPARISON: 09/01/[address] FINDINGS: Mediastinal blood pool FDG uptake: SUVMax 3.0 (Image 87) Liver background parenchymal FDG uptake: SUVMax 3.7 (Image 144) HEAD AND NECK: No abnormal FDG uptake in the imaged head and neck. CHEST: Ports and devices: None. Lungs: No abnormal FDG uptake. Pleura: No abnormal FDG uptake. Lymph Nodes: No abnormal FDG uptake. Mediastinum: No abnormal FDG uptake. Breasts/Chest Wall: No abnormal FDG uptake. Bilateral mastectomies withreconstruction. ABDOMEN/PELVIS: Liver/biliary system: No abnormal FDG uptake. Pancreas: No abnormal FDG uptake. Spleen: No abnormal FDG uptake. Adrenal Glands: No abnormal FDG uptake. Kidneys: No abnormal FDG uptake. Bowel: No abnormal FDG uptake. Mesentery, Omentum and Peritoneum: No abnormal FDG uptake. Pelvic Organs: No abnormal FDG uptake. Lymph Nodes: No abnormal FDG uptake. MUSCULOSKELETAL: No abnormal focal increased FDG uptake. IMPRESSION: 1. No evidence of metabolically active malignancy. Dictated by Vimal Espinoza MD @ 03/15/2024 7:52:23 PM (Electronically Signed) Jodi Mayfield MD PET * SELF PROPELLED HOT MIX ROLLER OPERATOR THIN PREP PAP SCREEN IMAGED (07/17/2020 9:40 AM COLORER HIDES AND SKINS) Case Report Gynecologic Cytology Report ? Case: [id number] ? Authorizing Provider: ??Kim Bellamy PA-C ?Collected: ? 07/17/2020 0940 ? Ordering Location: ? [facility] ?Received: ?07/18/2020 1245 ? First Screen: ?Emelina Rajput ? Specimen: ?SELF PROPELLED HOT MIX ROLLER OPERATOR ThinPrep Vial Screening, Cervical/Vaginal ? 07/25/2020 2:53 PM COLORER HIDES AND SKINS [facility] [employer] [facility] EN[facility]AL [facility] INTERPRETATION/ RESULT NEGATIVE FOR INTRAEPITHELIAL LESION OR MALIGNANCY (NIL) (none) 07/25/2020 2:53 PM COLORER HIDES AND SKINS [facility] [employer] [facility] IMEN ADEQUACY Satisfactory for evaluation No endocervical component seen in a patient 07/25/2020 2:53 PM COLORER HIDES AND SKINS [facility] [employer] [facility] HPV REQUEST HPV and PAP 07/25/2020 2:53 PM COLORER HIDES AND SKINS [facility]- ENTRAL LABORATORY Date of LMP 05/15/2021 07/25/2020 2:53 [address]ER HIDES [address] [facility] Last Pap Date 08/24/2017 07/25/2020 2:53 [address] COLORER HIDES [address]INS [facility] Last Pap Result NIL 2:53 PM COLORER HIDES AND SKINS [facility] [employer] [facility] Menstrual Status 07/25/2020 2:53 [address] COL[address]ER HIDES [address] Additional Information 07/25/2020 2:53 PM COLORER HIDES AND SKINS [facility] Comment: Interpreted at [facility] [employer] [facility], Central Laboratory - [address], [place] [address] Automated Review Successful 07/25/2020 2:53 PM COLORER HIDES AND SKINS [facility] [employer] LABORATORY- ENTRAL LABORATORY Comment:Specimen processed s uccessfully by automated rand cementer device, ThinPrep Imaging System, [employer] ANCILLARY TESTING SELF PROPELLED HOT MIX ROLLER OPERATOR HPV Ordered, Please see separate report 07/25/2020 2:53 PM COLORER HIDES AND SKINS [facility]- ENTRAL LABORATORY Note The pap test is a screening technique, not a diagnostic procedure. It is used primarily to screen for squamous cancers and precursor lesions. Published studies have shown that it is subject to both false negative and false positive results. The pap test should not be used as the sole means to diagnose or exclude pre-malignant and malignant lesions. 07/25/2020 2:[address]ER HIDES [address]INS [facility] Other (Cervical/Vagina l) 07/17/2020 9:40 AM COLORER HIDES AND SKINS 07/18/2020 12:45 PM COLORER HIDES AND SKINS September [facility] [address] [place] [address], [place] from Last 3 Months or Most [...] Preferences, Provider to review later Care Teams Staking Technician Relationship Specialty Start Date End Date Clinic, [facility] [address] [place] [address] PCP - General 01/30/24 Geovanna Chatman, RN [address] [place] [address] Nurse Navigator - Oncology Registered Nurse 12/27/22 Maite Ireland MD [address] [place] [address] Surgery - General 12/27/22 Bakari Mayo MD [address] [address] [place] [address] Surgery - Plastic 12/29/22 Jodi Mayfield MD [address] [place] [phone] Oncology 12/29/22
--- OUTSIDE RECORDS SUMMARY | 2024-04-19 15:21 | XMS_ITS | Clinical Summary ---
Author Organization [facility] Address [address] [place] [address] Care Team Providers Care Machine Cage Maker Name Role Phone Elsewhere, Pcp Primary Care Provider Unavailabl e Source Comments Patient records contain information from all sites at [facility]. For routine questions regarding patient records, call [phone] during business hours, M-F 8:00 AM - 5:00 PM Central Time. Record requests for emergency care only can be directed to [phone] at any time.[facility] Allergies No known active allergies Medications * This document contains information received from the source organization and may not represent a complete record from that organization. multivitamin tablet Take 1 tablet by mouth daily. Active ibuprofen (ADVIL,MOTRIN) 200 mg tablet Take 600 mg by mouth every 6 (six) hours. 3 Active LORazepam (ATIVAN) 0.5 mg tablet 3 Active ondansetron (ZOFRAN) 4 mg tablet 3 Active prochlorperazin e (COMPAZINE) 10 mg tablet Take by mouth as needed. 3 Active mometasone (ELOCON) 0.1 % cream Apply 1 Application topically daily. Apply to skin within the treatment field. 45 g 4 Active Active Problems Problem Noted Date Diagnosed Date Malignant Neoplasm Of Overla pping Sites Of Left Female Breast 02/10/2023 Cancer Staging:Pathologic:Stage IIA(pT2, pN0(sn), cM0, G2, ER+, MT-, HER2-) - Unsigned Encounters Date Type Department Care Team Description 03/23/2024 3:30 PM CDT Nurse Only Department of Family Medicine in [place], [place] [address] [place] [address] Lizy Hollingsworth L.P.N. from Last 3 Months Immunizations Name Administration Dates Next Due 4vHPV (discontinued) 12/05/2014,07/19/2014,05/28 DTP 05/26/1990, 9,02/26/1989, 989 DTaP (Infanrix, [employer]edia) 02/01/1994 Hib (PRP-D) (discontinued) 10/20/1990 MMR 09/06/2000,05/26/1990 SARS-COV-2 (COVID-19) - PFIZ ER (Discontinued)(12 years or older) 04/02/2021,03/03/2021 Tdap 12/12/2020,05/04/2017,03/22/2011 influenza trivalent vaccine (6 months and older)(PF) 03/23/2024 influenza vaccine quad (FLUZONE/FLUARIX) (6 months and [...] Recorded Dental: Regular Dentist Unknown 08/26/19 21 Comments No Sex and Gender Information Value Date Recorded Sex Assigned at Not on file Legal Sex 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 HELPER Gender Identity Not on file Sexual Orientation Not on file Last Filed Vital Signs Vital Sign Reading Time Taken Comments Blood Pressure 129/68 08/31/2023 1:54 PM CDT Pulse 78 08/31/2023 1:54 PM CDT Temperature 36.5 ??C (97.7 ??F) 10/04/2023 8:24 AM CD T Respiratory Rate 16 08/08/2023 2:45 PM FACTORY HELPER Oxygen Saturation 99% 08/08/2023 2:45 PM FACTORY HELPER Inhaled Oxygen Concentration - - Weight 87.8 kg (193 lb 9 oz) 10/04/2023 8:24 AM CDT Height 172.8 cm (5' 8.03) 05/22/2021 11:[address] Body Mass Index 29.4 05/22/2021 11:14 AM FACTORY HELPER Plan of Treatment Health Maintenance Due Date Last Done Comments HIV Screening 1988 Hepatitis C Screening 1988 Lipid (Cholesterol) Screening 1988 Pneumococcal vaccine (0-64 years) (1 of 2 - PCV) 1994 Hepatitis B Vaccines (1 of 3 - 19+ 3-dose series) 09/21/2007 Zoster Vaccines (1 of 2) 09/21/2007 COVID-19 Vaccine (3 - Pfizer risk series) 04/30/2021 04/02/2021, 03/03/2021 Depression Screening (Annual PHQ-2) 06/20/2023 Cervical/Vaginal Cancer Screening 07/17/2023 07/17/2020, 08/24/2017 DTaP,Tdap,and Td Vaccines (9 - Td or Tdap) 12/12/2030 12/12/2020, 05/04/2017, 03/22/2011, Additional history exists HPV Vaccines Completed 12/05/2014, 06/22, 05/28/2014 Influenza Vaccine Completed 03/23/2024, , 04/10/2021, Additional history exists IPV Vaccines Aged Out No longer eligi ble based on patient's age to complete this topic Insurance [employer] Care Teams Machine Cage Maker Relationship Specialty Start Date End Date Elsewhere, Pcp PCP - General Family Medicine 04/24/18
--- OUTSIDE RECORDS SUMMARY | 2024-04-19 15:21 | XMS_ITS | Encounter Summary ---
Author Organization [facility] Address [address] [place] [address] Care Team Providers Care Aircraft Log Clerk Name Role Phone Elsewhere, Pcp Primary Care Provider Unavailabl e Encounter Details Date Type Department Care Team (Late st Contact Info) Description 03/23/2024 3:30 PM CDT Nurse Only Department of Family Medicine in [place], [place] [address] [place] [address] Lizy Hollingsworth, L.P.N. 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
--- OUTSIDE RECORDS SUMMARY | 2024-04-19 15:21 | XMS_ITS | Referral Summary ---
Author Organization [facility] Address [address] [place] [address] Care Team Providers Care Communications Editor Name Role Phone Elsewhere, Pcp Primary Care Provider Unavailabl e Source Comments Patient records contain information from all sites at [facility]. For routine questions regarding patient records, call [phone] during business hours, M-F 8:00 AM - 5:00 PM Central Time. Record requests for emergency care only can be directed to [phone] at any time.[facility] Encounters Date Type Department Care Team Description 03/23/2024 3:30 PM CDT Nurse Only Department of Family Medicine in [place] [address] [place] [phone] Lizy Hollingsworth, L.P.N. from Last 3 Months Allergies No known active allergies Medications * [...] Cancer Staging:Pathologic:Stage IIA(pT2, pN0(sn), cM0, G2, ER+, GA-, HER2-) - Unsigned Immunizations Name Administration Dates [...] on file Legal Sex Female 9:12 PM ENGAGEMENT EXECUTIVE Gender Identity Not on file Sexual Orientation Not on file Last Filed Vital Signs Vital Sign Reading Time Taken Comments Blood Pressure 129/68 08/31/2023 1:54 PM CDT Pulse 78 08/31/2023 1:54 PM CDT Temperature 36.5 ??C (97.7 ??F) 10/04/2023 8:24 AM CD T Respiratory Rate 16 08/08/2023 2:45 PM ENGAGEMENT EXECUTIVE Oxygen Saturation 99% 08/08/2023 2:45 PM ENGAGEMENT EXECUTIVE Inhaled Oxygen Concentration - - Weight 87.8 kg (193 lb 9 oz) 10/04/2023 8:24 AM CDT Height 172.8 cm (5' 8.03) 05/22/2021 11:[address] Body Mass Index 29.4 05/22/2021 11:14 AM ENGAGEMENT EXECUTIVE Plan of Treatment Not on file [facility] Care Teams Communications Editor Relationship Specialty Start Date End Date Elsewhere, Pcp PCP - General Family Medicine 04/24/18
--- NOTE | 2024-04-19 15:30 | CRLHL7_ITS ---
For Patients: As a result of the Century Cures Act, medical imaging exams and procedure reports are released immediately into your electronic medical record. You may view this report before your referring provider. If you have questions, please contact your health care provider. DXA BONE MINERAL DENSITY STUDY Reason for exam: History of breast cancer. Current height (in): 68. Weight (lb): 175. Menopause age: 33. Ethnicity: White. 1. Have you had a previous hip or vertebral fracture? No. 2. Have you had any fractures during your adult life which did not result from significant trauma (e.g., auto accident)? No. 3. Did either of your parents have a hip fracture? No. 4. Do you smoke? No. 5. Have you ever taken Glucocorticoids? No. 6. Do you have rheumatoid arthritis? No. 7. Do you have secondary osteoporosis? No. 8. Do you drink 3 or more alcoholic drinks per day? No. 9. Are you being treated for osteoporosis? No. 10. Have you ever taken any of the following medications: Actonel, Evista, Fosamax, Miacalcin, Reclast, Boniva, Forteo, HRT (i.e. estrogen/hormone therapy), Protelos, Prolia, Vitamin D, Calcium, other ??? please specify. ANSWER: Yes, vitamin D and calcium. 11. Do you have any of the following medical conditions: Anorexia or bulimia, asthma or emphysema, end stage renal disease, hyperparathyroidism, any seizure disorders, cancer, inflammatory bowel diseases, hysterectomy, other ??? please specify. ANSWER: Yes, breast cancer. 12. What was your maximum height (inches)? 68. 13. Do you perform weight bearing exercise regularly? No. 14. Do you regularly consume dairy products? Yes. 15. Do you drink caffeinated beverages? Yes. 16. At what age did your period start? 10. 17. Are you premenopausal? No. 18. How many full term pregnancies have you had? 2. 19. Have you ever missed your period for more than 6 months in a row (not including or menopause)? No. TECHNIQUE: Bone mineral density study was performed using the [employer]. FINDINGS: The results of the study expressed as bone mineral density (BMD) are as follows: Lumbar spine L1 to L4: BMD: 1.175 g/cm2. T-score: 1.2. Z-score: 1.2. Neck Left: BMD: 0.991 g/cm2. T-score: 1.3. Z-score: 1.5. Right: BMD: 1.010 g/cm2. T-score: 1.4. Z-score: 1.6. Total Left: BMD: 1.105 g/cm2. T-score: 1.3. Z-score: 1.4. Right: BMD: 1.134 g/cm2. T-score: 1.6. Z-score: 1.7. IMPRESSION: Normal bone density. *Comparison exams done prior to 11/2019 were performed on different unit, [employer]. Jovon Ragland M.D. Diagnostic Radiologist [email or web address] SP/Dictated by: Jovon Ragland MD @ 04/20/2024 11:14:00 AM (Electronically Signed)
== END 2024-04-19 15:19 | disposition home or self-care (01) ==
LOC: RAD 15:19
PROVIDERS: Visit Provider Internal Medicine Hematology & Oncology
DX: C50.912 Malignant neoplasm of unspecified site of left female breast (principal)
CPT/HCPCS: 77080

== ENCOUNTER 2024-09-12 08:00 | Outpatient (RCR) | payer BC, OTHER, SELFPAY ==
--- NOTE | 2024-03-23 10:47 | URNOTE ---
Per Darshan at [facility], Prior auth is not required for Fam ([id number]). Call ref #[id number]
--- NOTE | 2024-03-28 13:57 | ONC.NURNOTE ---
LMOM that PA is complete for zoladex and to call and schedule at her earliest convenience.
--- NOTE | 2024-03-30 15:14 | ONC.NURNOTE ---
MARY for Ribociclib approved and copay is $0 per month. Patient will call [facility], to arrange shipping. Patient will have her DEXA on 04/[address] Mayfield with labs/EKG prior on 04/24. Patient requests to do her injections/labs on Fridays, so we will plan to start the Zoladex/Ribociclib on 04/27. Patient verbalizes understanding of plan.
[2024-04-24 14:27] LABS: Basophils Percent Auto 0.3 % (0.0-3.0); Eosinophils Percent Auto 0.3 % (0.0-7.0); Hematocrit 37.4 % (33.0-51.0); Hemoglobin* 12.6 gm/dL (12.0-16.0); Mean Corpuscular HGB Conc 34 gm/dL (32-36); Mean Corpuscular Hemoglobin 34 pg (26-34); Mean Corpuscular Volume 101 fL (80-100); Monocytes Percent Auto 6.5 % (0.0-11.0); Neutrophils Percent Auto 71.9 % (42.0-72.0); Platelet Count* 162 K/uL (140-440); RDW Coefficient of Variation % 11.8 % (11.5-15.5); Red Blood Count 3.69 m/uL (4.00-5.20); White Blood Count* 3.09 K/uL (4.50-11.00)
[2024-04-24 14:45] LABS: Albumin* 4.5 g/dL (3.3-5.0); Chloride* 101 mmol/L (96-114); Potassium* 4.1 mmol/L (3.6-5.1); Sodium* 139 mmol/L (135-149)
[2024-04-24 14:47] LABS: Creatinine* 0.7 mg/dL (0.5-1.5); Est. Creatinine Clearance* 109.08; Estimated Glomerular Filt Rate 116 ml/min
[2024-04-24 14:48] LABS: Alanine Aminotransferase* 23 U/L (4-35); Alkaline Phosphatase* 39 U/L (40-150); Anion Gap 10 mEq/L (7-15); Aspartate Amino Transferase* 21 U/L (12-35); Bilirubin Total* 0.3 mg/dL (0.1-1.5); Blood Urea Nitrogen* 10 mg/dL (5-24); Calcium* 9.3 mg/dL (8.4-10.6); Carbon Dioxide* 28 mmol/L (20-32); Glucose* 142 mg/dL (60-115); Total Protein* 6.9 g/dL (6.0-8.3)
[2024-04-24 14:49] LABS: Magnesium* 2.2 mg/dL (1.5-2.6); Slide Review Reflex No
--- NOTE | 2024-04-25 15:30 | ONC.NURNOTE ---
Patients spouse Smith called in follow up to Carly's EKG and plan of care. He shared that Carly felt a bit overwhelmed and concerned about the incidental finding of prolonged QT interval on her EKG. I briefly explained what this means and how it relates to her new treatment: Ribociclib. I reviewed Carly and Smith's concerns with Dr. Mayfield. I reassured them that Dr. Mayfield felt comfortable proceeding with treatment at 50% dose reduction, 200 mg daily x 3 weeks, 1 week off. And we will plan to repeat EKG and labs in [address] cardiology referral. Message left for Smith with this update to the plan of care.
--- NOTE | 2024-04-26 15:00 | ONC.NURNOTE ---
Patient informed that the first available cardiology consult here at the clinic is 05/24. Referral request also faxed to [facility] to see if they can see patient sooner. Patient verbalizes understanding.
[2024-04-27] MEDS: GOSERELIN ACETATE 3.6 MG IMPLANT SUBCUT (14:15)
[2024-04-27 14:28] VITALS: BP 124/77; PULSE 70; RESP 18; O2SAT 100
--- NOTE | 2024-04-30 15:03 | ONC.NURNOTE ---
Called patient to discuss updated plan of care in light of her reconstruction surgery scheduled for 05/14. 1. Patient instructed to stop her Tamoxifen. We will plan to resume endocrine therapy with Anastrozole at the time of her next Zoladex injection. 2. Patient instructed to stop her Ribociclib on 05-09 to allow her counts to recover prior to surgery. We will resume after her next appointment on 05/24. 3. Patient instructed to tell her PCP about the new finding of QT prolongation at her pre-op appointment. Patient verbalizes understanding.
--- NOTE | 2024-05-01 09:38 | W.ED.EKGINT ---
EKG Interpretation EKG Data Date of EKG Tracin04/24/24 EKG interpretation date: 05/01/24 EKG interpretation time: 09:38 Prior EKG tracings: not available for review Interpretation: EKG review was done, with indication of chemotherapeutic monitoring. No old EKG is available for comparison. Rhythm is sinus, with sinus arrhythmia, ventricular rate is 73, QT is prolonged at 4:48 a.m., QTC is 493. Diffuse ST wave abnormality is noted anterior laterally, with T-wave flattening. Assessment: Abnormal EKG, with ST wave issues noted above. And prolonged QT
--- NOTE | 2024-05-08 10:16 | W.ED.EKGINT ---
EKG Interpretation EKG Data Attestation: I personally reviewed and interpreted this ECG as follows: Date of EKG Tracin04/24/24 EKG interpretation date: 05/08/24 Prior EKG tracings: not available for review Interpretation: Eeg interpretation from above date, indication chemotherapeutic monitoring. Rhythm is sinus, with a ventricular rate of 73. Sinus arrhythmias noted, QT is prolonged at 4:48 a.m., with a QTC of 493, QRS is normal at 92 medically seconds. Assessment: Abnormal EKG with prolonged QT, sinus rhythm
[2024-05-09 09:04] LABS: Basophils Percent Auto 0.3 % (0.0-3.0); Eosinophils Percent Auto 0.7 % (0.0-7.0); Hematocrit 38.2 % (33.0-51.0); Lymphocytes Percent Auto 21.1 % (20-44); Mean Corpuscular HGB Conc 34 gm/dL (32-36); Mean Corpuscular Hemoglobin 35 pg (26-34); Mean Corpuscular Volume 101 fL (80-100); Monocytes Percent Auto 6.7 % (0.0-11.0); Neutrophils Percent Auto 71.2 % (42.0-72.0); Platelet Count* 146 K/uL (140-440); RDW Coefficient of Variation % 11.8 % (11.5-15.5); Red Blood Count 3.77 m/uL (4.00-5.20); White Blood Count* 2.98 K/uL (4.50-11.00)
[2024-05-09 09:09] LABS: Slide Review Reflex No
[2024-05-09 09:22] LABS: Albumin* 4.6 g/dL (3.3-5.0)
[2024-05-09 09:23] LABS: Chloride* 102 mmol/L (96-114); Potassium* 4.3 mmol/L (3.6-5.1); Sodium* 138 mmol/L (135-149)
[2024-05-09 09:25] LABS: Alkaline Phosphatase* 43 U/L (40-150); Anion Gap 9 mEq/L (7-15); Aspartate Amino Transferase* 19 U/L (12-35); Bilirubin Total* 0.5 mg/dL (0.1-1.5); Carbon Dioxide* 27 mmol/L (20-32); Creatinine* 0.8 mg/dL (0.5-1.5); Est. Creatinine Clearance* 95.45; Estimated Glomerular Filt Rate 98 ml/min
[2024-05-09 09:26] LABS: Alanine Aminotransferase* 20 U/L (4-35); Blood Urea Nitrogen* 17 mg/dL (5-24); Calcium* 9.6 mg/dL (8.4-10.6); Glucose* 82 mg/dL (60-115); Magnesium* 2.2 mg/dL (1.5-2.6)
--- NOTE | 2024-05-09 11:20 | ONC.NURNOTE ---
Discussed labs and EKG results with patient. Patient informed QT interval was improved. Patient will stop Ribociclib today in preparation for her reconstruction surgery on 05/14. Patient will continue holding until further directed at her follow up on 05/24. Tentative plan will be to start Anastrozole, resume Ribociclib and receive her second Zoladex injection on 05/25.
--- NOTE | 2024-05-15 10:23 | W.ED.EKGINT ---
EKG Interpretation EKG Data Attestation: I personally reviewed and interpreted this ECG as follows: Date of EKG Tracin05/09/24 EKG interpretation date: 05/15/24 Prior EKG tracings: available for review Interpretation: EKG is reviewed from 05/09/2024 indication is chemotherapeutic monitoring. Previous EKG from [facility] is available to be reviewed. Rhythm is sinus, ventricular rate is 70, with indeterminate ST wave changes are noted laterally and inferiorly. These are apparent on previous EKG from 05/07/2024. QT interval is 430, QTC is 444 Assessment: Abnormal EKG with mildly prolonged QTC that is improved from previous EKG, diffuse EKG ST wave changes that were apparent before, sinus rhythm
[2024-05-24 10:49] LABS: HCG Quantitative* < 2.39 mIU/mL
[2024-05-24 11:40] LABS: Basophils Percent Auto 0.9 % (0.0-3.0); Eosinophils Percent Auto 0.9 % (0.0-7.0); Hematocrit 38.5 % (33.0-51.0); Hemoglobin* 12.9 gm/dL (12.0-16.0); Immature Granulocytes Pct Auto 0.3 %; Lymphocytes Percent Auto 20.3 % (20-44); Mean Corpuscular HGB Conc 34 gm/dL (32-36); Mean Corpuscular Hemoglobin 34 pg (26-34); Mean Corpuscular Volume 100 fL (80-100); Monocytes Percent Auto 7.5 % (0.0-11.0); Neutrophils Percent Auto 70.1 % (42.0-72.0); Platelet Count* 266 K/uL (140-440); Red Blood Count 3.84 m/uL (4.00-5.20); White Blood Count* 3.35 K/uL (4.50-11.00)
[2024-05-24 11:43] LABS: Albumin* 4.4 g/dL (3.3-5.0); Chloride* 105 mmol/L (96-114); Sodium* 139 mmol/L (135-149)
[2024-05-24 11:45] LABS: Bilirubin Total* 0.2 mg/dL (0.1-1.5); Creatinine* 0.6 mg/dL (0.5-1.5); Est. Creatinine Clearance* 127.26; Estimated Glomerular Filt Rate 120 ml/min
[2024-05-24 11:46] LABS: Alanine Aminotransferase* 34 U/L (4-35); Alkaline Phosphatase* 56 U/L (40-150); Anion Gap 7 mEq/L (7-15); Aspartate Amino Transferase* 24 U/L (12-35); Blood Urea Nitrogen* 14 mg/dL (5-24); Calcium* 9.6 mg/dL (8.4-10.6); Carbon Dioxide* 27 mmol/L (20-32); Glucose* 90 mg/dL (60-115); Slide Review Reflex No; Total Protein* 7.2 g/dL (6.0-8.3)
[2024-05-24] MEDS: GOSERELIN ACETATE 3.6 MG IMPLANT SUBCUT (11:59)
[2024-06-08 14:19] LABS: Magnesium* 2.2 mg/dL (1.5-2.6)
[2024-06-11 14:56] LABS: Chloride* 103 mmol/L (96-114)
[2024-06-11 14:57] LABS: Albumin* 4.5 g/dL (3.3-5.0); Potassium* 4.4 mmol/L (3.6-5.1); Sodium* 140 mmol/L (135-149)
[2024-06-11 14:59] LABS: Alanine Aminotransferase* 22 U/L (4-35); Anion Gap 11 mEq/L (7-15); Aspartate Amino Transferase* 29 U/L (12-35); Blood Urea Nitrogen* 14 mg/dL (5-24); Carbon Dioxide* 26 mmol/L (20-32); Creatinine* 0.9 mg/dL (0.5-1.5); Est. Creatinine Clearance* 84.84; Estimated Glomerular Filt Rate 86 ml/min
[2024-06-11 15:00] LABS: Alkaline Phosphatase* 48 U/L (40-150); Bilirubin Total* 0.5 mg/dL (0.1-1.5); Calcium* 9.8 mg/dL (8.4-10.6); Glucose* 82 mg/dL (60-115); Total Protein* 7.4 g/dL (6.0-8.3)
--- NOTE | 2024-06-12 10:00 | W.ED.EKGINT ---
EKG Interpretation EKG Data Date of EKG Tracin06/08/24 EKG interpretation date: 06/12/24 Prior EKG tracings: available for review Interpretation: EKG review, indication for review his QT monitoring, chemotherapeutic treatment. Previous EKG reviewed from 05/24/2024. Rhythm remains sinus with sinus arrhythmia, nonspecific T-wave abnormality noted. More pronounced than 05/24/2024 with T-wave flattening noted. QRS is 82 milliseconds which is equivalent, VT interval decrease to 162 milliseconds, from previously 172. QT interval 400 milliseconds, QTC increase to 461 milliseconds, Assessment: Abnormal EKG with prolongation of QTC noted. Nonspecific T-wave abnormalities more pronounced
--- NOTE | 2024-06-12 12:33 | ONC.NURNOTE ---
Patient's EKG was read today and it showed a slight change. Attempted to call patient x2 with no answer. LMOM stating that there was a slight change and that it can wait to be addressed until , but if patient starts to experience any chest discomfort she should be seen prior to her appointment on afternoon.
[2024-06-14 15:51] LABS: Basophils Percent Auto 1.6 % (0.0-3.0); Eosinophils Percent Auto 1.6 % (0.0-7.0); Hematocrit 39.5 % (33.0-51.0); Hemoglobin* 13.3 gm/dL (12.0-16.0); Lymphocytes Percent Auto 31.2 % (20-44); Mean Corpuscular HGB Conc 34 gm/dL (32-36); Mean Corpuscular Hemoglobin 34 pg (26-34); Mean Corpuscular Volume 101 fL (80-100); Monocytes Percent Auto 8.5 % (0.0-11.0); Neutrophils Percent Auto 57.1 % (42.0-72.0); Platelet Count* 161 K/uL (140-440); RDW Coefficient of Variation % 12.3 % (11.5-15.5); White Blood Count* 2.47 K/uL (4.50-11.00)
[2024-06-14 15:52] LABS: Slide Review Reflex No
--- OUTSIDE RECORDS SUMMARY | 2024-06-22 07:22 | XMS_ITS ---
Author Organization [facility] Address [address] [place] [address] Care Team Providers Care Echocardiography Technologist Name Role Phone Elsewhere, Pcp Primary Care Provider Unavailabl e Active Problems * This document contains information received from the source organization and may not represent a complete record from that organization. 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 Past Plans No past plan information found. Radiation Treatments * Plan Last Treated On Elapsed Days Fractions Treated Prescribed Fraction Dose Prescribed Total Dose [id number] 10/07/2023 32 8 of 8 200 cGy 1,600 cGy [id number] 09/27/2023 22 9 of 9 200 cGy 1,800 cGy [id number] 09/14/2023 9 8 of 17 200 cGy 3,400 cGy Reference Point Last Treated On Elapsed Days Session Dose Total Dose [id number] 10/07/2023 32 200 cGy 5,000 cGy
--- OUTSIDE RECORDS SUMMARY | 2024-06-22 07:22 | XMS_ITS | Referral Summary ---
Author Organization [facility] Address [address] [place] [address] Care Team Providers Care Montessori Lead Teacher Name Role Phone Elsewhere, Pcp Primary Care Provider Unavailabl e Source Comments Patient records contain information from all sites at [facility]. For routine questions regarding patient records, call [phone] during business hours, M-F 8:00 AM - 5:00 PM Central Time. Record requests for emergency care only can be directed to [phone] at any time[address] Encounters Date Type Department Care Team Description 03/23/2024 3:30 PM CDT Nurse Only Department of Family Medicine in [place] [address] [place] [id number] Lizy Hollingsworth, L.P.N. 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 Gender Identity Not on file Sexual Orientation Not on file Last Filed Vital Signs Vital Sign Reading Time Taken Comments Blood Pressure 129/68 08/31/2023 1:54 PM CDT Pulse 78 08/31/2023 1:54 PM CDT Temperature 36.5 C (97.7 F) 10/04/2023 8:24 AM CDT Respiratory Rate 16 08/08/2023 2:45 PM STEAM METER READER Oxygen Saturation 99% 08/08/2023 2:45 PM STEAM METER READER Inhaled Oxygen Concentration - - Weight 87.8 kg (193 lb 9 oz) 10/04/2023 8:24 AM CDT Height 172.8 cm (5' 8.03) 05/22/2021 11:[address] Body Mass Index 29.4 05/22/2021 11:14 AM STEAM METER READER Plan of Treatment Not on file Insurance [id number] [place] [id number] [employer] [place] [id number] Care Teams Montessori Lead Teacher Relationship Specialty Start Date End Date Elsewhere, Pcp PCP - General Family Medicine 04/24/18
--- OUTSIDE RECORDS SUMMARY | 2024-06-22 07:22 | XMS_ITS | Clinical Summary ---
Author Organization [facility] Address [address] [place] [address] Care Team Providers Care Tool And Die Maker Apprentice Name Role Phone Elsewhere, Pcp Primary Care Provider Unavailabl e Source Comments Patient records contain information from all sites at [facility]. For routine questions regarding patient records, call [phone] during business hours, M-F 8:00 AM - 5:00 PM Central Time. Record requests for emergency care only can be directed to [phone] at any time.[facility] Allergies No known active allergies Medications [...] Cancer Staging:Pathologic:Stage IIA(pT2, pN0(sn), cM0, G2, ER+, [place]-, HER2-) - Unsigned Encounters Date Type Department Care Team Description 03/23/2024 3:30 PM CDT Nurse Only Department of Family Medicine in [place], [place] [address] [place] [address] Lizy Hollingsworth L.P.N. 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 Gender Identity Not on file Sexual Orientation Not on file Last Filed Vital Signs Vital Sign Reading Time Taken Comments Blood Pressure 129/68 08/31/2023 1:54 PM CDT Pulse 78 08/31/2023 1:54 PM CDT Temperature 36.5 C (97.7 F) 10/04/2023 8:24 AM CDT Respiratory Rate 16 08/08/2023 2:45 PM CRANE MECHANIC Oxygen Saturation 99% 08/08/2023 2:45 PM CRANE MECHANIC Inhaled Oxygen Concentration - - Weight 87.8 kg (193 lb 9 oz) 10/04/2023 8:24 AM CDT Height 172.8 cm (5' 8.03) 05/22/2021 11:[address] Body Mass Index 29.4 05/22/2021 11:14 AM CRANE MECHANIC Plan of Treatment Health Maintenance Due Date Last Done Comments HIV Screening 1988 Hepatitis C Screening 1988 Lipid (Cholesterol) Screening 1988 Hepatitis B Vaccines (1 of 3 - 19+ 3-dose series) 09/21/2007 Pneumococcal vaccine (0-49 years) (1 of 2 - PCV) 09/21/2007 Zoster Vaccines (1 of 2) 09/21/2007 [...] patient's age to complete this topic Insurance [place] [id number] Care Teams Tool And Die Maker Apprentice Relationship Specialty Start Date End Date Elsewhere, Pcp PCP - General Family Medicine 04/24/18
--- OUTSIDE RECORDS SUMMARY | 2024-06-22 07:22 | XMS_ITS | Clinical Summary ---
Author Organization [facility] Address [place], [place] [address] Care Team Providers Care Personal Lines Account Executive Name Role Phone Geovanna Chatman RN Unavailable [phone] Maite Ireland MD Unavailable Bakari Mayo MD Unavailable [phone] Jodi Mayfield MD Unavailable [phone] [facility] Pr ovider Allergies No known active allergies Medications goserelin acetate (ZOLADEX SUBQ)Indications:c ancer Inject subcutaneous every 4 weeks. through [facility] and [facility] - last administered on 04/27 Active ribociclib (KISQALI) 200 mg/day (200 mg x 1) tabletIndications: HR-positive, HER2-negative advanced breast cancer Take 200 mg by mouth once daily. Take at approximately the same time each day on days 1 through 21 of a 28 day treatment cycle. -stop on 05/09 per prescribing provider for surgery Active oxyCODONE (ROXICODONE) 5 mg immediate release tabletIndications: Malignant neoplasm of upper-outer quadrant of left breast in female, estrogen receptor positive (HC) Take 1 Tablet (5 mg) by mouth every 6 hours if needed for Pain. 30 Tablet 4 1:06 PM SEARCH CONSULTANT 05/14/20 24 Active methocarbamoL 750 mg tabletIndications: Malignant neoplasm of upper-outer quadrant of left breast in female, estrogen receptor positive (HC) Take 1 Tablet (750 mg) by mouth every 6 hours if needed for Muscle Spasm 1st choice. 30 Tablet 4 1:06 PM SEARCH CONSULTANT 05/14/20 24 Active ondansetron (ZOFRAN ODT) 4 mg disintegrating tabletIndications: Malignant neoplasm of upper-outer quadrant of left breast in female, estrogen receptor positive (HC) Place 2 Tablets (8 mg) on the tongue every 8 hours if needed for Nausea/Vomiting. 20 Tablet 4 1:06 PM SEARCH CONSULTANT 05/14/20 24 Active acetaminophen (TYLENOL EXTRA STRGTH) 500 mg tabletIndications: Malignant neoplasm of upper-outer quadrant of left breast in female, estrogen receptor positive (HC) Take 2 Tablets (1,000 mg) by mouth every 6 hours if needed for Pain. Max acetaminophen dose: 4000mg in 24 hrs. 50 Tablet 4 1:06 PM SEARCH CONSULTANT 05/14/20 24 Active cefadroxil (DURICEF) 500 mg capsuleIndications :Malignant neoplasm of upper-outer quadrant of left breast in female, estrogen receptor positive (HC) Take 1 Capsule (500 mg) by mouth two times daily for 14 days. 28 Capsule 4 1:06 PM SEARCH CONSULTANT 05/14/20 24 024 Active Problems Problem Noted Date Diagnosed Date Elevated MCV 05/08/2024 Malignant neoplasm of upper- outer quadrant of left breast in female, estrogen receptor positive 12/29/2022 Cancer Staging:Clinical:Stage IIA(cT2, cN0, cM0, G2, ER+, MN-, HER2-) - Signed by Maite Ireland MD on 12/29/2022 Pathologic stage from 01/27/2023:Stage IB(pT2, pN0, cM0, G3, ER+, MN+, HER2-) - Signed by America Hargrove PA on 02/07/2023 Overview (05/08/2024): Clinical: Stage IIA Full oncologic history as follows: Patient presented with 6 week history of palpable mass in the LEFT breast, whereupon she sought evaluation. Workup included mammogram and ultrasound (12/03/2022), which demonstrated architectural distortion on mammogram and large microlobulated hypoechoic mass at 2 o'clock 8 cm from the nipple measuring 3.9 cm. Additional lobular mases in the same quadrant measuring 2.4 cm. Mildly prominent lymph node is small, 4 mm. MRI (12/23/2022) demonstrated multiple masses with intervening non- mass enhancement in the upper outer breast measuring up to 9.8 cm. 12/13/2022 Patient underwent core needle biopsy of three masses LEFT breast masses, which each demonstrated invasive ductal carcinoma (ER+MN-H2N-) 01/27/2023 patient underwent bilateral mastectomies and LEFT sentinel lymph node biopsy and immediate first stage reconstruction with Vinicius Mayo and Shu with final pathology demonstrating: Other acne 03/22/2011 Contraception 03/22/2011 Patent foramen ovale 01/27/2009 Overview (01/27/2009): Noted on echocardiogram 12/2008 Encounters Date Type Department Care Team Description 06/15/2024 Telephone Count Includes [facility] [id number] [place] [address] Ko Barros MD Follow Up 05/24/2024 8:30 AM SEARCH CONSULTANT Office Visit [facility] & [address] [address] Uzma Hoffman MD 05/22/2024 8:30 AM SEARCH CONSULTANT Office Visit Count Includes [facility] [id number] [place] [address] Ko Barros MD Surgical Followup (Bilateral Revision of Diane-Implant Capsule with Change to Prepectoral Reconstruction, Placement of Acellular Dermal Matrix; Bilateral breast Implant exchange/On 05/14/2024 with Ko Barros MD/) 05/22/2024 Travel 05/21/2024 Travel 05/15/2024 Telephone Count Includes [facility] [address] [address] Ko Barros MD Surgical Followup (s/p Bilateral Exchange of Tissue Expanders to Silicone Breast Implants, Bilateral Conversion from Subpectoral to Prepectoral Reconstruction and Bilateral Capsulorrhaphy with Dr. Barros on 05/14/) 05/14/2024 7:32 AM SEARCH CONSULTANT Anesthesia Event [facility] [address] [place] [address] Travis Fitzgerald DO 05/14/2024 7:15 AM SEARCH CONSULTANT - 05/14/2024 12:15 PM SEARCH CONSULTANT Surgery [facility] [address] [place], [place] [address] [place] [address] Ko Barros MD Bilateral breast Implant exchange 05/14/2024 6:03 AM SEARCH CONSULTANT - 05/14/2024 3:20 PM SEARCH CONSULTANT Hospital Encounter [facility] [address] [place], [place] [address] [place] [address] Ko Barros MD Malignant neoplasm of upper-outer quadrant of left breast in female, estrogen receptor positive (HC) (Primary Dx) Discharge Disposition: Home Self Care 05/14/2024 Travel 05/08/2024 8:00 AM SEARCH CONSULTANT Office Visit Count Includes [facility] [address] [address] Ko Barros MD Recheck (Discuss Surgical Plan) 05/07/2024 9:30 AM SEARCH CONSULTANT Preop Visit [address] [address] Maykel Torres MD Pre-Op Exam (DOS 05/14/2024) 05/07/2024 Orders Only [address] [address] Maykel Torres MD 1 scan: (1-Ord) 05/07/2024 05/07/2024 Travel 05/03/2024 Travel 05/01/2024 3:45 PM SEARCH CONSULTANT Office Visit Count Includes [facility] [address] [address] Ko Barros MD Consult (2nd Stage Breast Reconstruction ) 05/01/2024 Travel 04/30/2024 Travel 04/27/2024 Transcribe Orders [facility] [address] [place] [address] Jodi Mayfield MD 04/24/[address] [facility] Scanner 1 scan: (1-Ord) EKG, 04/24/2024 04/24/2024 Telephone [facility] [address] [facility] [address] [place] [address] Ko Barros MD Surgery Scheduled 04/18/2024 8:15 AM CDT Office Visit Count Includes [facility] [address] [facility] [address] [place], [place] [phone] Flaquita Ferrari PA Follow Up (Breast Reconstruction, Stage 2) 04/18/2024 Travel 04/17/2024 3:00 PM CDT Telemedicine [facility] [place] [address] [place] [address] Damaris Bliss LICSW Individual Therapy (Follow up-virtual visit ) 04/15/2024 Travel from Last 3 Months Immunizations Name Administration [...] Given: Yes Alcohol Use Standard Drinks/Week Comments Not Currently 0 (1 standard drink = 0.6 oz pur e alcohol) rare PHQ-2 Answer Date Recorded PHQ-2 TOTAL SCORE 0 02/07/2024 Comments No Sex and Gender Information Value Date Recorded Sex Assigned at Not on file Legal Sex Female 5:25 AM SEARCH CONSULTANT Gender Identity Not on file Sexual Orientation Not on file Occupation Industry Job Start Date Job End Date Not on file Not on file Not on file Not on file Not on file Not on file Not on file Not on file Not on file Not on file Not on file Not on file Obstetrics History Last Filed Vital Signs Vital Sign Reading Time Taken Comments Blood Pressure 112/72 05/22/2024 8:23 AM SEARCH CONSULTANT Pulse 64 05/22/2024 8:23 AM SEARCH CONSULTANT Temperature 36.8 C (98.3 F) 05/22/2024 8:23 AM SEARCH CONSULTANT Respiratory Rate 16 05/22/2024 8:23 AM SEARCH CONSULTANT Oxygen Saturation 98% 05/14/2024 3:0 0 PM SEARCH CONSULTANT Inhaled Oxygen Concentration - - Weight 79.4 kg (175 lb) 05/22/2024 8:23 AM SEARCH CONSULTANT Height 172.7 cm (5' 8) 05/22/2024 8:23 AM SEARCH CONSULTANT carried forward Body Mass Index 26.61 05/22/2024 8:23 AM SEARCH CONSULTANT Plan of Treatment Upcoming Encounters Date Type Department Care Team (Late st Contact Info) Description 06/26/2024 8:30 AM SEARCH CONSULTANT Office Visit [facility] [id number] [place] [address] Ko Barros MD [address] [address] 08/28/2024 8:15 AM CDT Office Visit [facility] [id number] [place] [address] Ko Barros MD [address] [address] 01/24/2025 8:30 AM CDT Office Visit [facility] [place] [address] [place] [address] America Barron, MARY [address] [place] [address] Health Maintenance Due Date Last Done Comments HIV for age 15-65 09/21/2003 Hepatitis C screening for ag e 18-79 2006 Pneumococcal series for age 6-49 (1 of 2 - PCV) 09/21/2007 Tetanus booster 03/22/2021 03/22/2011, 09/06/2000 COVID-19 vaccine series (3 - Pfizer risk series) 04/30/2021 04/02/2021, 03/03/2021 Pap test for age 21-65 07/17/2023 , 07/17/2020, 08/24/2017, Additional history exists Influenza for age 9-49 02/19/2024 Depression screening for age 12+ 02/08/2025 02/09/20, 02/07/2024 BMI (ht and wt on same day) for age 18+ 05/22/2025 05/22/2024, 05/08/2024, 04/18/2024, Additional history exists Tdap Completed 03/22/2011 Medical Devices Implanted Type Area Senior Drupal Developer Device Identifier Shelf Expiration Date Model / Serial / Lot Statistical Reporting Analyst Breast 500cc Natrelle Smooth Mod Extra W/Fourte - [id number] Implanted:Qty: 1 on 01/27/2023 by Bakari Mayo MD at [facility] Explanted:at [facility] (Quantity not on file) Right: Breast [employer] - Inamed 06/04/2024 133S-MX-13 -T / [id number] / Statistical Reporting Analyst Breast 500cc Natrelle Smooth Mod Extra W/Fourte - [id number] Implanted:Qty: 1 on 01/27/2023 by Bakari Mayo MD at [facility] Explanted:at [facility] (Quantity not on file) Left: Breast [employer] - Inamed 08/17/2024 133S-MX-13 -T / [id number] / Breast 750cc Natrelle Inspira Soft Touch Ssx - [id number] Implanted:Qty: 1 on 05/14/2024 by Ko Barros MD at [facility] Right: Breast [employer] - Inamed 09/16/2028 SSX-750 / [id number] / Alloderm Select Restore Tissue Matrix Perforated Size: X-Large Thick 2.4+-0.4mm Implanted:Qty: 1 on 05/14/2024 by Ko Barros MD at [facility] Right: Breast [employer] 10/17/2025 [id number] / / [id number] Breast 750cc Natrelle Inspira Soft Touch Ssx - [id number] Implanted:Qty: 1 on 05/14/2024 by Ko Barros MD at [facility] Left: Breast [employer] - Inamed 08/25/2028 SSX-750 / [id number] / Alloderm Select Restore Tissue Matrix Perforated X-Large 400cm Thick 2.4 / 0.4mm Implanted:Qty: 1 on 05/14/2024 by Ko Barros MD at [facility] Left: Breast H ALLODERM 08/17/2025 [id number] / / [id number] Explanted Type Area Senior Drupal Developer Device Identifier Shelf Expiration Date Model / Serial / Lot Sizer Breast 750cc X-Full Natrelle Inspira - [id number] Explanted:Qty: 1 on 05/14/2024 by Ko Barros MD at [facility] Right: Breast [employer] - Inamed 12/29/2028 SSZ-X750 / [id number] / Sizer Breast 750cc X-Full Natrelle Inspira - [id number] Explanted:Qty: 1 on 05/14/2024 by Ko Barros MD at [facility] Left: Breast [employer] - Inamed 12/29/2028 SSZ-X750 / [id number] / Procedures Procedure Name Priority Date/Time Associated Diagnosis Comments PATH TISSUE EXAM Today 05/14/2024 9:31 AM SEARCH CONSULTANT ENDOTRACHEAL TUBE Routine 05/14/2024 7:51 AM SEARCH CONSULTANT ENDOTRACHEAL TUBE Routine 05/14/2024 7:51 AM SEARCH CONSULTANT CAPSULOTOMY MAMMARY BILATERAL Elective 05/14/2024 7:17 AM SEARCH CONSULTANT Acquired absence of breast and absent nipple, bilateral Case Notes Supine'Power Assisted Lipo' request removed from case notes per updated 'no fat grafting' note in additional requests, confrimed with Papo , he will not be doing lipo'No alloderm' note removed per additional requests requesting alloderm , he has requested allodermImplants (x3): __NVL-687__ODQ-921__BPW-750__SSX-800Sizers (x3): __[id number]__CFE-V941__JUBR933__VTY-G736__SCP-A288__RGU-T720Ysmdlqq ordered 05/02- Additional Requests:__RXL1519P x3__SCX-700 x3 __SCX-750x3 __SCX-763u2Moooggt ordered 05/08-No longer needs fat grafting REMOVAL BREAST IMPLANT REPLACEMENT BREAST IMPLANT Elective 05/14/2024 7:17 AM SEARCH CONSULTANT Acquired absence of breast and absent nipple, bilateral Case Notes Supine'Power Assisted Lipo' request removed from case notes per updated 'no fat grafting' note in additional requests, confrimed with Papo , he will not be doing lipo'No alloderm' note removed per additional requests requesting alloderm , he has requested allodermImplants (x3): __LQC-813__NRJ-623__BVY-750__SSX-800Sizers (x3): __PEZ-W769__LLX-P855__JUIZ890__XFF-Y540__FQI-C029__NYZ-U514Tatlgnz ordered 05/02- Additional Requests:__RXL1519P x3__SCX-700 x3 __SCX-750x3 __SCX-801o6Froazko ordered 05/08-No longer needs fat grafting URINE Preop 05/14/2024 6:44 AM SEARCH CONSULTANT GLUCOSE METER Timed 05/14/2024 6:41 AM SEARCH CONSULTANT SCAN-CARDIAC STRIP 05/14/2024 12:00 AM SEARCH CONSULTANT CBC WITH AUTO DIFFERENTIAL Routine 05/07/2024 10:23 AM SEARCH CONSULTANT Preop examination COMP METABOLIC PANEL Routine 05/07/2024 10:23 AM SEARCH CONSULTANT Preop examination URINE Routine 05/07/2024 10:23 AM SEARCH CONSULTANT Preop examination EKG 12 LEAD Routine 05/07/2024 12:00 AM SEARCH CONSULTANT Preop examination SCAN-ELECTROCARDIO GRAM EKG 04/24/2024 12:00 AM SEARCH CONSULTANT FIRE CONTROL TECHNICIAN THIN PREP PAP SCREEN IMAGED Routine 07/17/2020 9:40 AM SEARCH CONSULTANT from Last 3 Months or Most Recently Relevant to Health Maintenance Results * PATH TISSUE EXAM (05/14/2024 9:31 AM SEARCH CONSULTANT) Case Report Pathology Report Case: [id number] Authorizing Provider: Ko Barros MD Collected: 05/14/2024 0931 Ordering Location: [facility] Received: 05/14/[address] [place] [address] Pathologist: Francisca Seals MD Specimens: A) - Left Breast, left breast B) - Right Breast, right breast tissue 05/15/2024 5:07 PM SEARCH CONSULTANT [employer] [facility] Final Diagnosis A) LEFT BREAST, EXCISION: 1. Benign breast tissue 2. Negative for atypia and malignancy B) RIGHT BREAST, EXCISION: 1. Benign breast tissue 2. Benign skin 3. Negative for atypia and malignancy 05/15/2024 5:07 PM SEARCH CONSULTANT [employer] [facility] Clinical Information History of left breast multifocal invasive ductal carcinoma, status post bilateral mastectomy. Procedure Bilateral Exchange of Tissue Expanders to Silicone Breast Implants Bilateral Conversion from Subpectoral to Prepectoral Reconstruction Bilateral Capsulorrhaphy 05/15/2024 5:07 PM [facility] Gross Description A) Received in formalin, labeled with the patient's name and left breast, is a 5.8 x 3.8 x 1.1 cm aggregate of 2 irregular portions of yellow-pink, cauterized fibroadipose tissue. Sectioning reveals the breast parenchyma composed of 60% firm white fibrous tissue and 40% yellow adipose tissue. No lesions or masses identified. Still Photographer sections are submitted in 2 cassettes. Time removed from patient: 930 Time placed in formalin: not provided Date removed and placed in formalin: 05/14/2024 B) Received in formalin, labeled with the patient's name and right breast tissue, is a 6.5 x 6.2 x 1.0 cm aggregate of multiple cauterized portions of yellow-pink fibroadipose tissue and duong skin. No lesions are identified on the skin surface. Sectioning reveals the breast parenchyma composed of 50% yellow adipose tissue and 50% firm white fibrous tissue. No lesions or masses identified. Still Photographer sections of the skin and fibrous tissue are submitted in 2 cassettes. Time removed from patient: 946 Time placed in formalin: Not provided Date removed and placed in formalin: 05/14/2024 Cold ischemic time < 60 minutes. The specimen was fixed in formalin for a minimum of 6 hours and not longer than 72 hours. JKT 05/14/2024 05/15/2024 5:07 PM [facility]-C ENTRAL LABORATORY Microscopic Description The final diagnosis is based on microscopic examination of appropriate sections of all specimens. 05/15/2024 5:07 PM [facility] [employer] LABORATORY-C ENTRAL LABORATORY Additional Information Interpreted at [facility] [employer], Central Laboratory - [address], [place] [address] 05/15/2024 5:07 PM [facility] ENTRAL LABORATORY Tissue (Left Breast) 05/14/2024 9:31 AM SEARCH CONSULTANT 05/14/2024 3:41 PM [facility] Tissue specimen (specimen) (Right Breast) 05/14/2024 9:47 AM SEARCH CONSULTANT 05/14/2024 3:41 PM SEARCH CONSULTANT Ko Barros MD PATHOLOGY/CYTOLOGY Angie l Result Performing Organization Address City/[facility]/ZIP Co de Phone Number [facility] LABORATORY-CENTRAL LABORATORY [address] [place] [address], [place] * HCHG TUBE PR1, HCHG STYLET PR1 (05/14/2024 7:51 AM SEARCH CONSULTANT) Narrative Lluvia Stringer, SENIOR PROJECT ENGINEER - 05/14/2024 7:51 AM SEARCH CONSULTANT Lluvia Stringer, SENIOR PROJECT ENGINEER 05/14/2024 7:52 AM Procedure: ETT Patient location during procedure: OR ETT Properties Mask Ventilation: easy Final Technique: direct laryngoscopy Type: straight Location: oral Tube Size: 7.0 mm Stylet: yes Laryngoscope Blade: Weiner Blade Size: 2 Cormack-Lehane Grade View: 1 Insertion Attempts: 1 Placement Verification: auscultation and end tidal CO2 Assessment: pharynx clear, atraumatic and dentition unchanged Secured at: 23 Measured From: lips Difficulty: 0 (not difficult) Travis Fitzgerald DO ANESTHESIA PX NOTE ORDE RABLES Final Result * Urine (05/14/2024 6:44 AM SEARCH CONSULTANT) Only the most recent of2 resultswithin the time period is included. ,URIN E Negative Negative 05/14/2024 6:49 AM SEARCH CONSULTANT [facility] Urine URINE SPECIMEN / Unknown Non-Blood / Unknown 05/14/2024 6:44 AM SEARCH CONSULTANT 05/14/2024 6:44 AM SEARCH CONSULTANT Ko Barros MD URINE Final R esult Performing Organization Address City/[facility]/ZIP Co de Phone Number [facility] [address] [place] [phone] * GLUCOSE METER (05/14/2024 6:41 AM SEARCH CONSULTANT) GLUCOSE METER 85 65 - 100 mg/dL 05/14/2024 6:47 AM SEARCH CONSULTANT [facility] Blood BLOOD SPECIMEN / Unknown 05/14/2024 6:41 AM SEARCH CONSULTANT 05/14/2024 6:47 AM SEARCH CONSULTANT us Ko Barros MD CHEMISTRY Final R esult [facility] [address] [place] [address] * SCAN-CARDIAC STRIP (05/14/2024 12:00 AM SEARCH CONSULTANT) Narrative 05/14/2024 12:00 AM SEARCH CONSULTANT Ordered by an unspecified provider. us Other Clinical Staff OTHER Final Resul t * (ABNORMAL) CBC AND DIFFERENTIAL (05/07/2024 10:23 AM SEARCH CONSULTANT) WHITE BLOOD CELL COUNT 2.3(L) 3.8 - 10.8 Thousand/u L [facility] RED BLOOD CELL COUNT 3.89 3.80 - 5.10 Million/uL [facility] HEMOGLOBIN 13.3 11.7 - 15.5 g/dL [facility] HEMATOCRIT 39.8 35.0 - 45.0 % [facility] MCV 102.3(H) 80.0 - 100.0 fL [facility] MCH 34.2(H) 27.0 - 33.0 pg [facility] MCHC 33.4 32.0 - 36.0 g/dL [facility] Comment: For adults, a slight decrease in the calculated MCHC value (in the range of 30 to 32 g/dL) is most likely not clinically significant; however, it should be interpreted with caution in correlation with other red cell parameters and the patient's clinical condition. RDW 11.7 11.0 - 15.0 % [facility] PLATELET COUNT 172 140 - 400 Thousand/u L [facility] MPV 11.1 7.5 - 12.5 fL [facility] ABSOLUTE NEUTROPHILS 1,309(L) 1,500 - 7,800 cells/uL [facility] ABSOLUTE LYMPHOCYTES 748(L) 850 - 3,900 cells/uL [facility] ABSOLUTE MONOCYTES 202 200 - 950 cells/uL [facility] ABSOLUTE EOSINOPHILS 21 15 - 500 cells/uL [facility] ABSOLUTE BASOPHILS 21 0 - 200 cells/uL [facility] NEUTROPHILS 56.9 % [facility] LYMPHOCYTES 32.5 % [facility] MONOCYTES 8.8 % [facility] EOSINOPHILS 0.9 % [facility] BASOPHILS 0.9 % [facility] Blood BLOOD SPECIMEN / Unknown 05/07/2024 10:23 AM SEARCH CONSULTANT 05/07/2024 10:27 AM SEARCH CONSULTANT Narrative [facility] - 05/08/2024 3:46 AM SEARCH CONSULTANT FASTING:NO FASTING: NO us Maykel Torres MD HEMATOLOGY Final Res ult [facility] [address] [place] [address], [facility] [address] [place] [phone] * COMP METABOLIC PANEL (05/07/2024 10:23 AM SEARCH CONSULTANT) [facility] GLUCOSE 88 65 - 139 mg/dL [facility] Comment: Non-fasting reference interval UREA NITROGEN (BUN) 12 7 - 25 mg/dL [facility] CREATININE 0.80 0.50 - 0.97 mg/dL [facility] EGFR 98 > OR = 60 mL/min/1. 73m2 [facility] BUN/CREATININE RATIO SEE NOTE: 6 - 22 (calc) [facility] Comment: Not Reported: BUN and Creatinine are within reference range. SODIUM 141 135 - 146 mmol/L [facility] POTASSIUM 4.3 3.5 - 5.3 mmol/L [facility] CHLORIDE 106 98 - 110 mmol/L [facility] CARBON DIOXIDE 27 20 - 32 mmol/L [facility] CALCIUM 9.5 8.6 - 10.2 mg/dL [facility] PROTEIN, TOTAL 7.0 6.1 - 8.1 g/dL [facility] ALBUMIN 4.6 3.6 - 5.1 g/dL [facility] GLOBULIN 2.4 1.9 - 3.7 g/dL (calc) [facility] ALBUMIN/GLOBULIN RATIO 1.9 1.0 - 2.5 (calc) [facility] BILIRUBIN, TOTAL 0.4 0.2 - 1.2 mg/dL [facility] ALKALINE PHOSPHATASE 41 31 - 125 U/L [facility] AST 15 10 - 30 U/L [facility] ALT 17 6 - 29 U/L [facility] Blood BLOOD SPECIMEN / Unknown 05/07/2024 10:23 AM SEARCH CONSULTANT 05/07/2024 10:27 AM SEARCH CONSULTANT Narrative [facility] - 05/08/2024 7:01 AM SEARCH CONSULTANT FASTING:NO FASTING: NO us Maykel Torres MD CHEMISTRY Final Res ult [facility] [address] [place] [address], [facility] [address] * EKG 12 LEAD (05/07/2024 12:00 AM SEARCH CONSULTANT) us Maykel Torres MD EKG ORD Final Res ult * SCAN-ELECTROCARDIOGRAM EKG (04/24/2024 12:00 AM SEARCH CONSULTANT) us Scanner OTHER Final Result * FIRE CONTROL TECHNICIAN THIN PREP PAP SCREEN IMAGED (07/17/2020 9:40 AM SEARCH CONSULTANT) Case Report Gynecologic Cytology Report Case: [id number] Authorizing Provider: Kim Bellamy PA-C Collected: 07/17/2020 0940 Ordering Location: [facility] Received: 07/18/2020 1245 First Screen: Emelina Rajput Specimen: FIRE CONTROL TECHNICIAN ThinPrep Vial Screening, Cervical/Vaginal 07/25/2020 2:53 PM SEARCH CONSULTANT [facility] [employer] [facility]AT[facility] INTERPRETATION/ RESULT NEGATIVE FOR INTRAEPITHELIAL LESION OR MALIGNANCY (NIL) (none) 07/25/2020 2:53 PM SEARCH CONSULTANT [facility] IMEN ADEQUACY Satisfactory for evaluation No endocervical component seen in a patient 07/25/2020 2:53 PM SEARCH CONSULTANT [facility] HPV REQUEST HPV and PAP 07/25/2020 2:53 PM SEARCH CONSULTANT [facility] Date of LMP 05/15/2021 07/25/2020 2:53 PM SEARCH CONSULTANT [facility] Last Pap Date 08/24/2017 07/25/2020 2:53 PM SEARCH CONSULTANT [facility] Last Pap Result NIL 2:53 PM SEARCH CONSULTANT [facility] Menstrual Status 07/25/2020 2:53 PM SEARCH CONSULTANT [facility] Additional Information 07/25/2020 2:53 PM SEARCH CONSULTANT [facility] Comment: Interpreted at [facility] - [address], [place] [address] Automated Review Successful 07/25/2020 2:53 PM SEARCH CONSULTANT [facility] Comment:Specimen processed s uccessfully by automated director speech and hearing device, ThinPrep Imaging System, [employer] ANCILLARY TESTING FIRE CONTROL TECHNICIAN HPV Ordered, Please see separate report 07/25/2020 2:53 PM SEARCH CONSULTANT [facility] Note The pap test is a screening technique, not a diagnostic procedure. It is used primarily to screen for squamous cancers and precursor lesions. Published studies have shown that it is subject to both false negative and false positive results. The pap test should not be used as the sole means to diagnose or exclude pre-malignant and malignant lesions. 07/25/2020 2:53 PM SEARCH CONSULTANT [facility] Other (Cervical/Vagina l) 07/17/2020 9:40 AM SEARCH CONSULTANT 07/18/2020 12:45 PM SEARCH CONSULTANT September Mia [facility] PATH[facility]Y/CYTOLOGY Final R esult [facility] [address] [place] [address], from Last 3 Months or Most Recently Relevant to Health Maintenance Insurance [place] [id number] [facility] [place] [phone] * Guarantor: [facility] [employer] Account Type Relation to Patient Date of Phone Billing Address [facility]/Rafiq Other FAMILY PLAN - [place] [address] [place] [phone] [employer] DEPT [id number] [place] [address] Advance Directives * Full Code (Latest Code Status on File) Date Activated Date Inactivated Comments 05/14/2024 6:16 AM 05/14/2024 5:42 PM Question Answer Comments Code Status Discussion: Reviewed Preferences * Full Code Date Activated Date Inactivated Comments 01/27/2023 5:14 PM 01/27/2023 11:01 PM Question Answer Comments Code Status Discussion: Reviewed Preferences * Full Code Date Activated Date Inactivated Comments 01/27/2023 9:48 AM 01/27/2023 5:14 PM Question Answer Comments Code Status Discussion: Unable to Assess Preferences, Provider to review later Care Teams Personal Lines Account Executive Relationship Specialty Start Date End Date Clinic, [facility] [address] [place] [address] PCP - General 01/30/24 Geovanna Chatman, RN [address] [place] [address] Nurse Navigator - Oncology Registered Nurse 12/27/22 Maite Ireland MD [address] [place] [address] Surgery - General 12/27/22 Bakari Mayo MD [address] [facility] [address] [place] [address] Surgery - Plastic 12/29/22 Jodi Mayfield MD [address] [place] [address] Oncology 12/29/22
--- OUTSIDE RECORDS SUMMARY | 2024-06-22 07:22 | XMS_ITS ---
Author Organization [facility] Address [address] [place] [address] Care Team Providers Care Residential Program Worker Name Role Phone Unavailable Unavailable Unavailable Surgery Details Not on file Complications Check Surgery Details section. Procedure Estimated Blood Loss Check Surgery Details section. Procedure Findings Check Surgery Details section. Procedure Specimens Taken Check Surgery Details section.
--- OUTSIDE RECORDS SUMMARY | 2024-06-22 07:22 | XMS_ITS | Continuity of Care Document ---
Author Name NwHIN User [email or web address] llowed Address Unknown Organization Unknown Address Unknown Procedures FILTER APPLIED:Only known Procedures with Onset Date within the last 5 years Procedure Date Procedure Provider Additiona l Information Status OFFICE O/P EST HI 40 MIN (77726) Completed OFFICE O/P EST SF 10 MIN (83744) Completed OFFICE O/P EST LOW 20 MIN (56542) Completed COMPREHEN METABOLIC PANEL (35635) Completed DRAW BLOOD OFF VENOUS DEVICE (31184) Completed COMPLETE CBC W/AUTO DIFF WBC (19048) Completed TX/PRO/DX INJ SAME DRUG LINUX KERNEL ENGINEER (08756) Completed CHEMO IV INFUSION 1 HR (36591) Completed CHORIONIC GONADOTROPIN ASSAY (16887) Completed CHORIONIC GONADOTROPIN TEST (39885) Completed OFFICE O/P EST MOD 30 MIN (63423) Completed DRAW BLOOD OFF VENOUS DEVICE (27168) Completed CHEMO IV INFUSION 1 HR (69632) Completed CHEMO IV PUSH ADDL DRUG (21646) Completed APPLICATON ON-BODY INJECTOR (53728) Completed TX/PRO/DX INJ SAME DRUG LINUX KERNEL ENGINEER (34140) Completed CHORIONIC GONADOTROPIN ASSAY (10288) Completed COMPLETE CBC W/AUTO DIFF WBC (84122) Completed COMPREHEN METABOLIC PANEL (36088) Completed ROUTINE VENIPUNCTURE (46261) Completed OFF/OP EST OCTOBER X REQ PHY/QHP (79859) Completed X-RAY EXAM CHEST 1 VIEW (94686) Completed FLUOROSCOPY <1 HR PHYS/QHP (74081) Completed ANESTH VASCULAR ACCESS (48853) Completed INSJ TUNNELED CTR VAD W/SUBQ PORT AGE 5 YR/> (39991) Completed ECHO GUIDE FOR BIOPSY (19943) Completed URINE TEST (10978) Completed OFFICE O/P EST SF 10 MIN (91365) Completed OFFICE O/P EST HI 40 MIN (46005) Completed OFFICE O/P NEW HI 60 MIN (75743) Completed OFFICE O/P NEW SF 15 MIN (23763) Completed Encounters FILTER APPLIED:Only known Encounters with Admission Date within the last 5 years Encounter Location Admission Discharge Billing Code [facility] Rocio briones Outpatient [facility] Out[facility] Bo [facility] Outpatient Vic[facility] Suarez Outpatient [id number] VICENTA SUAREZ Unknown [id number] EDMUNDO MCNULTY
[2024-06-22 13:50] LABS: Basophils Percent Auto 0.9 % (0.0-3.0); Eosinophils Percent Auto 1.3 % (0.0-7.0); Hematocrit 41.4 % (33.0-51.0); Hemoglobin* 13.9 gm/dL (12.0-16.0); Lymphocytes Percent Auto 31.9 % (20-44); Mean Corpuscular HGB Conc 34 gm/dL (32-36); Mean Corpuscular Hemoglobin 34 pg (26-34); Mean Corpuscular Volume 101 fL (80-100); Monocytes Percent Auto 8.1 % (0.0-11.0); Neutrophils Percent Auto 57.8 % (42.0-72.0); Platelet Count* 206 K/uL (140-440); RDW Coefficient of Variation % 12.3 % (11.5-15.5); Red Blood Count 4.11 m/uL (4.00-5.20); White Blood Count* 2.35 K/uL (4.50-11.00)
[2024-06-22 13:52] LABS: Slide Review Reflex No
[2024-06-22 13:56] VITALS: BP 121/71; PULSE 73; RESP 16; TEMP 36.3; O2SAT 100
[2024-06-22] MEDS: GOSERELIN ACETATE 3.6 MG IMPLANT SUBCUT (14:16)
[2024-06-22 14:19] LABS: Albumin* 4.9 g/dL (3.3-5.0); Chloride* 100 mmol/L (96-114)
[2024-06-22 14:20] LABS: Potassium* 4.2 mmol/L (3.6-5.1); Sodium* 137 mmol/L (135-149)
[2024-06-22 14:22] LABS: Alkaline Phosphatase* 52 U/L (40-150); Anion Gap 9 mEq/L (7-15); Aspartate Amino Transferase* 27 U/L (12-35); Bilirubin Total* 0.4 mg/dL (0.1-1.5); Blood Urea Nitrogen* 18 mg/dL (5-24); Carbon Dioxide* 28 mmol/L (20-32); Creatinine* 0.8 mg/dL (0.5-1.5); Est. Creatinine Clearance* 95.45; Estimated Glomerular Filt Rate 98 ml/min; Glucose* 103 mg/dL (60-115); Total Protein* 7.8 g/dL (6.0-8.3)
[2024-06-22 14:23] LABS: Magnesium* 2.5 mg/dL (1.5-2.6)
--- NOTE | 2024-06-22 15:49 | ONC.NURNOTE ---
Patient informed that her EKG and labs are within parameters to continue Ribociclib. Patient informed that her WBC and ANC are stable but her immune system is compromised and she needs to monitor closely for any signs of infection. Patient started her new cycle 1/2. Confirmed plan to recheck labs and EKG in 2 weeks and follow up with Dr. Mayfield prior to her next cycle. Patient verbalizes understanding of plan.
--- NOTE | 2024-06-22 17:45 | URNOTE ---
[id number] Pt carries BCBS and per website [id number] does not req PA.
[2024-06-22 19:09] LABS: Alanine Aminotransferase* 37 U/L (4-35)
[2024-06-22 19:10] LABS: Calcium* 9.7 mg/dL (8.4-10.6)
[2024-06-22 21:41] LABS: HCG Quantitative* < 2.39 mIU/mL
--- NOTE | 2024-07-03 12:57 | W.ED.EKGINT ---
EKG Interpretation EKG Data Attestation: I personally reviewed and interpreted this ECG as follows: Date of EKG Tracin06/22/24 EKG interpretation date: 07/03/24 Prior EKG tracings: available for review Interpretation: EKG interpretation within indication for drug monitoring is done. Patient remains in his normal sinus rhythm, with the QRS of 88 milliseconds, ventricular rate is 65, QT of 434 and a QTC of [address] wave changes nonspecific changes of ST flattening are persistent when reviewed with previous EKG of 06/08/2024 Assessment: Abnormal EKG with the slight prolongation of QT. ST wave flattening his persistent
[2024-07-06 13:51] LABS: Basophils Percent Auto 0.7 % (0.0-3.0); Eosinophils Percent Auto 0.7 % (0.0-7.0); Hematocrit 38.4 % (33.0-51.0); Hemoglobin* 13.2 gm/dL (12.0-16.0); Lymphocytes Percent Auto 25.8 % (20-44); Mean Corpuscular HGB Conc 34 gm/dL (32-36); Mean Corpuscular Hemoglobin 34 pg (26-34); Mean Corpuscular Volume 100 fL (80-100); Monocytes Percent Auto 8.4 % (0.0-11.0); Neutrophils Percent Auto 64.4 % (42.0-72.0); Platelet Count* 223 K/uL (140-440); RDW Coefficient of Variation % 12.1 % (11.5-15.5); Red Blood Count 3.84 m/uL (4.00-5.20); White Blood Count* 2.98 K/uL (4.50-11.00)
[2024-07-06 13:59] LABS: Slide Review Reflex No
[2024-07-06 14:04] LABS: Albumin* 4.7 g/dL (3.3-5.0); Chloride* 102 mmol/L (96-114); Potassium* 4.5 mmol/L (3.6-5.1); Sodium* 140 mmol/L (135-149)
[2024-07-06 14:06] LABS: Anion Gap 6 mEq/L (7-15); Bilirubin Total* 0.3 mg/dL (0.1-1.5); Carbon Dioxide* 32 mmol/L (20-32); Est. Creatinine Clearance* 76.36; Estimated Glomerular Filt Rate 75 ml/min
[2024-07-06 14:07] LABS: Alanine Aminotransferase* 23 U/L (4-35); Alkaline Phosphatase* 53 U/L (40-150); Aspartate Amino Transferase* 22 U/L (12-35); Blood Urea Nitrogen* 20 mg/dL (5-24); Calcium* 9.7 mg/dL (8.4-10.6); Glucose* 104 mg/dL (60-115); Magnesium* 2.2 mg/dL (1.5-2.6); Total Protein* 7.4 g/dL (6.0-8.3)
[2024-07-06 14:40] LABS: HCG Quantitative* < 2.39 mIU/mL
--- NOTE | 2024-07-06 14:54 | ONC.NURNOTE ---
Call to patient. Left message informing her that labs and EKG are within parameters to continue ribociclib. Patient encouraged to call with questions or concerns.
--- NOTE | 2024-07-17 09:56 | W.ED.EKGINT ---
EKG Interpretation EKG Data Attestation: I personally reviewed and interpreted this ECG as follows: Date of EKG Tracin07/06/24 EKG interpretation date: 07/17/24 Prior EKG tracings: available for review Interpretation: Review of EKG from 07/06/2024, indication is chemotherapeutic monitoring. Old EKG from 06/22/2024, rhythm is sinus, ventricular rate is 78, QRS is 84 milliseconds, QT is 410 milliseconds, QTC is 467. No acute ST wave changes is noted, sinus arrhythmias noted again. Assessment: Normal sinus rhythm with sinus arrhythmia, QT is decreased along with QTC from previous
[2024-07-18 14:25] LABS: Basophils Percent Auto 0.8 % (0.0-3.0); Eosinophils Percent Auto 1.2 % (0.0-7.0); Hematocrit 40.2 % (33.0-51.0); Hemoglobin* 13.9 gm/dL (12.0-16.0); Lymphocytes Percent Auto 35.2 % (20-44); Mean Corpuscular HGB Conc 35 gm/dL (32-36); Mean Corpuscular Hemoglobin 34 pg (26-34); Mean Corpuscular Volume 99 fL (80-100); Monocytes Percent Auto 10.8 % (0.0-11.0); Platelet Count* 129 K/uL (140-440); RDW Coefficient of Variation % 12.1 % (11.5-15.5); Red Blood Count 4.05 m/uL (4.00-5.20)
[2024-07-18 14:40] LABS: Albumin* 5.1 g/dL (3.3-5.0); Chloride* 101 mmol/L (96-114); Sodium* 140 mmol/L (135-149)
[2024-07-18 14:42] LABS: Anion Gap 12 mEq/L (7-15); Bilirubin Total* 0.4 mg/dL (0.1-1.5); Carbon Dioxide* 27 mmol/L (20-32); Creatinine* 0.8 mg/dL (0.5-1.5); Est. Creatinine Clearance* 95.45; Estimated Glomerular Filt Rate 98 ml/min
[2024-07-18 14:43] LABS: Alanine Aminotransferase* 32 U/L (4-35); Alkaline Phosphatase* 45 U/L (40-150); Aspartate Amino Transferase* 28 U/L (12-35); Blood Urea Nitrogen* 19 mg/dL (5-24); Calcium* 9.8 mg/dL (8.4-10.6); Glucose* 103 mg/dL (60-115); Magnesium* 2.1 mg/dL (1.5-2.6)
[2024-07-18 14:53] LABS: Slide Review Reflex Yes
[2024-07-18 15:09] LABS: HCG Quantitative* < 2.39 mIU/mL
[2024-07-18 15:14] LABS: Slide Review Acceptable Review (Acceptable)
--- NOTE | 2024-07-18 16:00 | ONC.NURNOTE ---
Ribociclib Prescription - New Specialty Pharm Notified by [facility] that with pt's insurance change 06/20/24, they will no longer dispense pt's Ribociclib. Per [employer]BS, preferred specialty pharm is [facility]. Current prescription for Ribociclib 200 mg/day x 21 days; 7 days off in 28 day cycle with 0 refills electronically transmitted to [facility].
[2024-07-20 08:16] VITALS: BP 123/88; PULSE 76; RESP 18; TEMP 36.2; O2SAT 100
[2024-07-20] MEDS: GOSERELIN ACETATE 3.6 MG IMPLANT SUBCUT (08:28)
--- NOTE | 2024-07-24 09:02 | W.ED.EKGINT ---
EKG Interpretation EKG Data Attestation: I personally reviewed and interpreted this ECG as follows: Date of EKG Tracin07/18/24 EKG interpretation date: 07/24/24 Prior EKG tracings: available for review Interpretation: EKG interpretation from above date is done. With the indication of chemotherapeutic monitoring. Normal sinus rhythm with mild sinus arrhythmia is noted, ventricular rate 64, QRS is 96, which is slightly increased from previous. QT is 432, QTC 445. No acute ST wave changes, ST wave abnormalities were present on previous EKG, with ST wave flattening. Impression: Normal sinus rhythm with sinus arrhythmia. Mild ST wave changes.
--- NOTE | 2024-07-25 10:31 | ONC.NURNOTE ---
MARY for Ribociclib completed on Cover My Meds, Terry: [id number]. Will await approval. Patient notified to let us know if she gets a confirmed shipment date. She only has enough medication through 07/30. She started her new cycle 2.
--- NOTE | 2024-07-31 08:11 | ONC.NURNOTE ---
Kisqali delivery scheduled to ship today 07/31 and be delivered 08/01.
[2024-08-16 14:12] LABS: Basophils Percent Auto 0.9 % (0.0-3.0); Eosinophils Percent Auto 0.9 % (0.0-7.0); Hematocrit 40.8 % (33.0-51.0); Lymphocytes Percent Auto 31.6 % (20-44); Mean Corpuscular HGB Conc 34 gm/dL (32-36); Mean Corpuscular Hemoglobin 34 pg (26-34); Mean Corpuscular Volume 100 fL (80-100); Monocytes Percent Auto 6.5 % (0.0-11.0); Neutrophils Percent Auto 60.1 % (42.0-72.0); Platelet Count* 178 K/uL (140-440); RDW Coefficient of Variation % 11.8 % (11.5-15.5); Red Blood Count 4.08 m/uL (4.00-5.20); White Blood Count* 2.31 K/uL (4.50-11.00)
[2024-08-16 14:16] LABS: Slide Review Reflex No
[2024-08-16 14:30] LABS: Albumin* 5.1 g/dL (3.3-5.0); Chloride* 100 mmol/L (96-114); Sodium* 137 mmol/L (135-149)
[2024-08-16 14:31] LABS: Potassium* 4.1 mmol/L (3.6-5.1)
[2024-08-16 14:33] LABS: Alkaline Phosphatase* 48 U/L (40-150); Anion Gap 9 mEq/L (7-15); Aspartate Amino Transferase* 23 U/L (12-35); Bilirubin Total* 0.4 mg/dL (0.1-1.5); Blood Urea Nitrogen* 20 mg/dL (5-24); Carbon Dioxide* 28 mmol/L (20-32); Creatinine* 0.9 mg/dL (0.5-1.5); Est. Creatinine Clearance* 84.84; Estimated Glomerular Filt Rate 86 ml/min; Glucose* 109 mg/dL (60-115); Total Protein* 7.8 g/dL (6.0-8.3)
[2024-08-16 14:34] LABS: Alanine Aminotransferase* 24 U/L (4-35); Calcium* 9.7 mg/dL (8.4-10.6); Magnesium* 2.1 mg/dL (1.5-2.6)
[2024-08-16] MEDS: GOSERELIN ACETATE 3.6 MG IMPLANT SUBCUT (14:41)
[2024-08-16 14:54] LABS: HCG Quantitative* < 2.39 mIU/mL
--- NOTE | 2024-08-23 11:44 | ONC.NURNOTE ---
Addendum entered by Lashae Henriquez 08/27/24 14:51: Message left for Carly with instructions to hold her ribociclib for 10 days before and 10 days after her surgery (08/28-09/16). Requested return call to confirm receipt of this message. Original Note: Patient is having a fat grafting/reconstruction surgery on 09/06. She is wondering if she needs to hold her ribociclib prior to and after surgery. She started this most recent cycle on 08/19 and is to begin her week off starting the . When she was in clinic on 08/16 she forgot to ask the provider. I assured her that I would discuss with her provider and return her call with instructions.
--- NOTE | 2024-08-28 11:21 | W.ED.EKGINT ---
EKG Interpretation EKG Data Attestation: I personally reviewed and interpreted this ECG as follows: Date of EKG Tracin09/13/24 EKG interpretation date: 08/28/24 Prior EKG tracings: available for review Interpretation: EKG interpretation is done from above date, compared to old EKG from 07/18/2024. Indication for interpretation is chemotherapeutic monitoring. Normal sinus rhythm, with a ventricular rate of 62 QRS is 92 milliseconds QT is 418 with a QTC of 424, some very mild ST wave changes are noted laterally and inferiorly. Which were present on previous EKG noted. Assessment: Abnormal EKG with ST wave changes noted previously, rhythm remains sinus, QTC and QTC improved.
[2024-09-12 09:05] LABS: Basophils Percent Auto 1.2 % (0.0-3.0); Eosinophils Percent Auto 1.2 % (0.0-7.0); Hematocrit 39.8 % (33.0-51.0); Hemoglobin* 13.6 gm/dL (12.0-16.0); Lymphocytes Percent Auto 26.4 % (20-44); Mean Corpuscular HGB Conc 34 gm/dL (32-36); Mean Corpuscular Hemoglobin 35 pg (26-34); Mean Corpuscular Volume 101 fL (80-100); Monocytes Percent Auto 9.7 % (0.0-11.0); Neutrophils Percent Auto 61.5 % (42.0-72.0); Platelet Count* 182 K/uL (140-440); RDW Coefficient of Variation % 11.5 % (11.5-15.5); Red Blood Count 3.93 m/uL (4.00-5.20); White Blood Count* 2.58 K/uL (4.50-11.00)
[2024-09-12 09:14] LABS: Slide Review Reflex No
[2024-09-12 09:16] LABS: Albumin* 4.9 g/dL (3.3-5.0); Chloride* 102 mmol/L (96-114); Potassium* 4.9 mmol/L (3.6-5.1); Sodium* 142 mmol/L (135-149)
[2024-09-12 09:19] LABS: Alanine Aminotransferase* 66 U/L (4-35); Alkaline Phosphatase* 52 U/L (40-150); Anion Gap 7 mEq/L (7-15); Aspartate Amino Transferase* 44 U/L (12-35); Bilirubin Total* 0.5 mg/dL (0.1-1.5); Blood Urea Nitrogen* 20 mg/dL (5-24); Calcium* 10.2 mg/dL (8.4-10.6); Carbon Dioxide* 33 mmol/L (20-32); Creatinine* 0.7 mg/dL (0.5-1.5); Est. Creatinine Clearance* 109.08; Estimated Glomerular Filt Rate 116 ml/min; Glucose* 89 mg/dL (60-115); Magnesium* 2.3 mg/dL (1.5-2.6); Total Protein* 7.6 g/dL (6.0-8.3)
[2024-09-12 09:48] LABS: HCG Quantitative* < 2.39 mIU/mL
[2024-09-12] MEDS: GOSERELIN ACETATE 3.6 MG IMPLANT SUBCUT (09:58)
== END 2024-09-17 23:59 | disposition home or self-care (01) ==
LOC: CCIC 08:00
PROVIDERS: Clinical Nurse Specialist; Physician Assistant; Referring Provider Obstetrics & Gynecology; Visit Provider Internal Medicine Hematology & Oncology
DX: C50.912 Malignant neoplasm of unspecified site of left female breast (principal); Z17.0 Estrogen receptor positive status [ER+]; Z79.811 Long term (current) use of aromatase inhibitors; Z90.13 Acquired absence of bilateral breasts and nipples; R79.89 Other specified abnormal findings of blood chemistry; Z51.81 Encounter for therapeutic drug level monitoring
CPT/HCPCS: 36415; 80053; 83735; 84702; 85025; 93005; 93010; 96401; 96402; 99214; 99215; G0463; J9202

== ENCOUNTER 2025-04-12 08:00 | Outpatient (RCR) | payer BC, SELFPAY ==
--- NOTE | 2024-09-18 10:26 | W.ED.EKGINT ---
EKG Interpretation EKG Data Attestation: I personally reviewed and interpreted this ECG as follows: Date of EKG Tracin09/11/24 EKG interpretation date: 09/18/24 Prior EKG tracings: available for review Interpretation: EKG interpretation, previous EKG from 07/18/2024. Indication is chemotherapeutic monitoring. Rhythm remains sinus, ventricular rate 63, no apparent ST wave changes different from previous EKG. QRS is 90 milliseconds, QT is 424, QTC is 433. Assessment: Normal EKG, QT and QTC are slightly improved, patient remains in normal sinus rhythm, no acute changes.
--- NOTE | 2024-10-08 15:09 | ONC.NURNOTE ---
Patient called to report that she was in the ER over the weekend with cellulitis on her breast. She was started on Bactrim BID for 7 days, instructed to see her plastic surgeon LIYAH and to hold her ribociclib/contact oncology. She only had a few days left of her current cycle. Discussed with Dr. Mayfield. Patient instructed to continue holding her ribociclib and delay the next cycle for 1-2 weeks. Patient will get her Zoladex as planned on 10/11 and will see Becky Hicsk PA-C on 10/25 for labs, EKG and assessment for consideration of resuming ribociclib. Patient already has follow up with her plastic surgeon scheduled for 10/09. Patient verbalizes understanding of plan.
--- NOTE | 2024-10-10 14:11 | ONC.NURNOTE ---
Patient notified N that after seeing her plastic surgeon yesterday (10/09), she was directed back to the ER at [place] for IV antibiotics and admission. As of today, the infection is responding to IV antibiotics and she will hopefully be discharged 10/11 or 10/12. If the infection does not clear, she will need to have her implant removed. We rescheduled her Zoladex injection to 10/12. Carly will call to reschedule if her discharge timeline changes.
--- NOTE | 2024-10-12 14:59 | ONC.NURNOTE ---
Plan to hold Kisqali, Zoladex and endocrine tx for 1-2 weeks following surgery for breast implant removal today 10/12/24 d/t cellulitis. Pt was previously scheduled for Labs/EKG/Becky on 10/22; confirmed with pt via phone to keep appt and discuss resuming tx at that time.
[2024-10-18 08:34] LABS: Hematocrit* 37.6 % (33.0-51.0); Hemoglobin* 12.9 gm/dL (12.0-16.0); Immature Granulocytes Pct Auto 0.8 %; Mean Corpuscular HGB Conc 34 gm/dL (32-36); Mean Corpuscular Hemoglobin 34 pg (26-34); Mean Corpuscular Volume 100 fL (80-100); RDW Coefficient of Variation % 11.7 % (11.5-15.5); Red Blood Count* 3.77 m/uL (4.00-5.20); White Blood Count* 2.61 K/uL (4.50-11.00)
[2024-10-18 08:40] LABS: Immature Granulocytes Abs Auto 0.00 K/uL (0.00-0.30); Lymphocytes Absolute Auto 0.70 K/uL (0.90-2.90); Slide Review Reflex No
[2024-10-18 08:52] LABS: Albumin* 4.8 g/dL (3.3-5.0); Chloride* 103 mmol/L (96-114); Potassium* 4.9 mmol/L (3.6-5.1); Sodium* 139 mmol/L (135-149)
[2024-10-18 08:54] LABS: Anion Gap 10 mEq/L (7-15); Blood Urea Nitrogen* 21 mg/dL (5-24); Carbon Dioxide* 26 mmol/L (20-32); Creatinine* 0.8 mg/dL (0.5-1.5); Estimated Glomerular Filt Rate 98 ml/min
[2024-10-18 08:55] LABS: Alanine Aminotransferase* 117 U/L (4-35); Alkaline Phosphatase* 68 U/L (40-150); Aspartate Amino Transferase* 52 U/L (12-35); Bilirubin Total* 0.4 mg/dL (0.1-1.5); Calcium* 10.0 mg/dL (8.4-10.6); Glucose* 83 mg/dL (60-115); Total Protein* 7.6 g/dL (6.0-8.3)
[2024-10-22 14:55] VITALS: BP 135/85; PULSE 84; RESP 20; TEMP 36.4; O2SAT 98
[2024-10-22 15:26] LABS: Albumin* 4.7 g/dL (3.3-5.0)
[2024-10-22 15:28] LABS: Alanine Aminotransferase* 49 U/L (4-35); Aspartate Amino Transferase* 30 U/L (12-35); Total Protein* 7.4 g/dL (6.0-8.3)
[2024-10-22 15:29] LABS: Alkaline Phosphatase* 61 U/L (40-150); Bilirubin Direct* 0.3 mg/dL (0.0-0.5); Bilirubin Total* 0.3 mg/dL (0.1-1.5)
[2024-10-22] MEDS: GOSERELIN ACETATE 3.6 MG IMPLANT SUBCUT (16:18)
[2024-10-22 17:47] LABS: HCG Quantitative* < 2.39 mIU/mL
--- NOTE | 2024-10-23 11:34 | W.ED.EKGINT ---
EKG Interpretation EKG Data Date of EKG Tracin10/22/24 EKG interpretation date: 10/23/24 Prior EKG tracings: available for review Interpretation: EKG interpretation is done for chemotherapeutic monitoring. Compared to old EKG from 08/19, rhythm is normal sinus rhythm, ventricular rate is 72. QRS is 90 milliseconds, QT is 414 QTC is 453, mild T-wave flattening is noted in the inferior leads, when compared to old EKG no appreciable changes noted. Assessment: Normal sinus rhythm, no change.
--- NOTE | 2024-10-25 14:09 | ONC.NURNOTE ---
Call to patient to discuss plan of care. Patient informed that both Becky Hicks PA-C and Dr. Mayfield have discussed her care and have the following recommendations: Restart Ribociclib after antibiotics are complete. She will resume 10/27. 11/08 stop Ribociclib in preparation for surgery Mon 11/19?Zoladex injection 11/22 Surgery to replace implant 12/03: labs, EKG and follow up in preparation to resume Ribociclib 12/06 resume Ribociclib if authorized by oncology/surgery 12/17 check LFT and Zoladex Patient verbalizes understanding of plan.
[2024-11-20 08:56] LABS: Hematocrit* 39.4 % (33.0-51.0); Hemoglobin* 13.3 gm/dL (12.0-16.0); Immature Granulocytes Abs Auto 0.00 K/uL (0.00-0.30); Immature Granulocytes Pct Auto 0.0 %; Mean Corpuscular HGB Conc 34 gm/dL (32-36); Mean Corpuscular Hemoglobin 34 pg (26-34); Mean Corpuscular Volume 101 fL (80-100); RDW Coefficient of Variation % 12.1 % (11.5-15.5); Red Blood Count* 3.90 m/uL (4.00-5.20); White Blood Count* 2.92 K/uL (4.50-11.00)
[2024-11-20 09:00] LABS: Lymphocytes Absolute Auto 0.80 K/uL (0.90-2.90); Slide Review Reflex No
[2024-11-20 09:02] LABS: Ur HCG Qualitative* Negative (Negative)
[2024-11-20 09:03] VITALS: BP 118/78; PULSE 64; RESP 16; TEMP 36.2; O2SAT 100
[2024-11-20 09:09] LABS: Albumin* 5.0 g/dL (3.3-5.0); Chloride* 104 mmol/L (96-114); Potassium* 4.0 mmol/L (3.6-5.1); Sodium* 143 mmol/L (135-149)
[2024-11-20 09:12] LABS: Alanine Aminotransferase* 25 U/L (4-35); Alkaline Phosphatase* 70 U/L (40-150); Anion Gap 11 mEq/L (7-15); Aspartate Amino Transferase* 29 U/L (12-35); Bilirubin Total* 0.4 mg/dL (0.1-1.5); Blood Urea Nitrogen* 17 mg/dL (5-24); Calcium* 10.1 mg/dL (8.4-10.6); Carbon Dioxide* 28 mmol/L (20-32); Creatinine* 0.7 mg/dL (0.5-1.5); Estimated Glomerular Filt Rate 115 ml/min; Glucose* 78 mg/dL (60-115); Total Protein* 8.1 g/dL (6.0-8.3)
[2024-11-20] MEDS: GOSERELIN ACETATE 3.6 MG IMPLANT SUBCUT (09:18)
--- NOTE | 2024-12-13 15:15 | ONC.NURNOTE ---
Patient emailed [employer] with the following update on her condition. I wanted to give you a quick update. I did get another infection after my 11/22 surgery. I?had some redness and a few soft pockets of bulging skin. 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 They switched my antibiotic to bactrim.?My surgeon sent me to the ER Tuesday after a new concerning spot surfaced over the weekend. Between my surgeon and the infectious disease doctor, they said it wouldn?t be any more beneficial to try the IV antibiotics after I had already been taking bactrim for a week. So I ended up in surgery yesterday. They removed the left implant again. Not sure where we?ll go from here, as he won?t place another implant after all the left side has been through. I won?t be back in the OR again anytime soon at least.? Discussed with Becky Hicks PA-C. Patient informed that we would recommend to continue holding ribociclib until her infection is cleared up. No need for labs, EKG and provider visit on 12/17. Patient will keep her appointment for Hcg and Zoladex on 12/17. Patient is seeing infectious disease and will have a post operative visit next week. After those visits, Carly will touch base with the BCN to discuss appropriate timing for oncology follow up. Patient verbalizes understanding of plan.
[2024-12-17 08:04] LABS: Ur HCG Qualitative* Negative (Negative)
[2024-12-17 08:14] VITALS: BP 125/88; PULSE 84; RESP 18; TEMP 37; O2SAT 100
[2024-12-17] MEDS: GOSERELIN ACETATE 3.6 MG IMPLANT SUBCUT (08:22)
--- NOTE | 2024-12-26 11:15 | ONC.NURNOTE ---
Patient emailed N with an update on her condition. I met with the infectious disease doctor yesterday (12/20). She wants me to continue the antibiotic for one week after my drain is removed. I have my appointment with the surgeon on Monday 12/25, so hoping my drain output is low enough to have it removed then. If it gets removed, I?ll have enough antibiotic to continue through Tuesday 01/02. I also leave for vacation to [place] the following evening on through Tuesday 01/09.? Should I try to squeeze in an appointment before I finish the antibiotics or wait until I return from vacation?? Oh, all my cultures from surgery came back clear! So the antibiotics are working. Dr Montalvo was also going to send some info back to you.? Reviewed records and discussed with MARY Smart. We will plan to see patient after she returns from her family vacation to discuss resuming ribociclib. Appointment for lab, EKG, follow up and Zoladex scheduled for 01/14.
[2025-01-14 08:28] LABS: Hematocrit* 38.9 % (33.0-51.0); Hemoglobin* 12.7 gm/dL (12.0-16.0); Immature Granulocytes Abs Auto 0.00 K/uL (0.00-0.30); Immature Granulocytes Pct Auto 0.0 %; Lymphocytes Absolute Auto 0.70 K/uL (0.90-2.90); Mean Corpuscular HGB Conc 33 gm/dL (32-36); Mean Corpuscular Hemoglobin 33 pg (26-34); Mean Corpuscular Volume 100 fL (80-100); RDW Coefficient of Variation % 12.3 % (11.5-15.5); Red Blood Count* 3.91 m/uL (4.00-5.20); Slide Review Reflex No; White Blood Count* 2.27 K/uL (4.50-11.00)
[2025-01-14 08:45] LABS: Albumin* 4.5 g/dL (3.3-5.0); Chloride* 104 mmol/L (96-114); Sodium* 138 mmol/L (135-149)
[2025-01-14 08:46] LABS: Potassium* 3.6 mmol/L (3.6-5.1)
[2025-01-14 08:48] LABS: Ur HCG Qualitative* Negative (Negative)
[2025-01-14 08:48] LABS: Alanine Aminotransferase* 33 U/L (4-35); Alkaline Phosphatase* 64 U/L (40-150); Anion Gap 6 mEq/L (7-15); Aspartate Amino Transferase* 30 U/L (12-35); Bilirubin Total* 0.4 mg/dL (0.1-1.5); Blood Urea Nitrogen* 18 mg/dL (5-24); Calcium* 10.1 mg/dL (8.4-10.6); Carbon Dioxide* 28 mmol/L (20-32); Creatinine* 0.6 mg/dL (0.5-1.5); Estimated Glomerular Filt Rate 119 ml/min; Glucose* 75 mg/dL (60-115); Total Protein* 7.2 g/dL (6.0-8.3)
[2025-01-14] MEDS: GOSERELIN ACETATE 3.6 MG IMPLANT SUBCUT (09:49)
--- NOTE | 2025-01-14 13:42 | ONC.NURNOTE ---
Rx and supporting records for breast prosthesis and bras faxed to [facility]. Patient was provided the phone number to call and schedule an appointment for fitting.
[2025-01-28 08:18] LABS: Albumin* 4.7 g/dL (3.3-5.0)
[2025-01-28 08:21] LABS: Bilirubin Direct* 0.2 mg/dL (0.0-0.5); Bilirubin Total* 0.4 mg/dL (0.1-1.5)
[2025-01-28 08:22] LABS: Alanine Aminotransferase* 23 U/L (4-35); Alkaline Phosphatase* 63 U/L (40-150); Aspartate Amino Transferase* 26 U/L (12-35); Total Protein* 7.6 g/dL (6.0-8.3)
--- NOTE | 2025-01-28 15:32 | ONC.NURNOTE ---
Patient notifed N that she ran out of her ribociclib. She did not take her dose on 01/27 and will miss 01/28 and possibly 01/29 before her shipment can be delivered. Once her shipment arrives, she will resume.
[2025-02-11 08:13] LABS: Hematocrit* 38.3 % (33.0-51.0); Hemoglobin* 12.8 gm/dL (12.0-16.0); Immature Granulocytes Abs Auto 0.00 K/uL (0.00-0.30); Immature Granulocytes Pct Auto 0.0 %; Mean Corpuscular HGB Conc 33 gm/dL (32-36); Mean Corpuscular Hemoglobin 33 pg (26-34); Mean Corpuscular Volume 98 fL (80-100); RDW Coefficient of Variation % 12.1 % (11.5-15.5); Red Blood Count* 3.92 m/uL (4.00-5.20); White Blood Count* 2.14 K/uL (4.50-11.00)
[2025-02-11 08:20] LABS: Lymphocytes Absolute Auto 0.90 K/uL (0.90-2.90); Slide Review Reflex No
[2025-02-11 08:33] LABS: Albumin* 4.6 g/dL (3.3-5.0); Chloride* 102 mmol/L (96-114); Potassium* 4.3 mmol/L (3.6-5.1); Sodium* 140 mmol/L (135-149)
[2025-02-11 08:36] LABS: Alanine Aminotransferase* 25 U/L (4-35); Alkaline Phosphatase* 71 U/L (40-150); Anion Gap 8 mEq/L (7-15); Aspartate Amino Transferase* 25 U/L (12-35); Bilirubin Total* 0.2 mg/dL (0.1-1.5); Blood Urea Nitrogen* 17 mg/dL (5-24); Calcium* 10.4 mg/dL (8.4-10.6); Carbon Dioxide* 30 mmol/L (20-32); Creatinine* 0.7 mg/dL (0.5-1.5); Estimated Glomerular Filt Rate 115 ml/min; Glucose* 81 mg/dL (60-115); Total Protein* 7.6 g/dL (6.0-8.3)
[2025-02-11 09:39] LABS: HCG Quantitative* < 2.39 mIU/mL
[2025-02-11] MEDS: GOSERELIN ACETATE 3.6 MG IMPLANT SUBCUT (10:15)
--- NOTE | 2025-02-26 10:55 | W.ED.EKGINT ---
EKG Interpretation EKG Data Attestation: I personally reviewed and interpreted this ECG as follows: Date of EKG Tracin02/11/25 EKG interpretation date: 02/26/25 EKG interpretation time: 10:55 Prior EKG tracings: available for review Interpretation: EKG interpretation is done with indication of chemotherapeutic monitoring, old EKG from 01/14/2025 is compared with. Normal sinus rhythm, with ventricular rate of 64. QRS is 82 milliseconds, QT is 422, QTC is 435, no acute ST wave changes are noted, Assessment: Normal EKG with normal sinus rhythm,
--- NOTE | 2025-03-12 15:19 | ONC.NURNOTE ---
Kisqali refill electronically sent by Dr. Mayfield.
[2025-03-13 08:32] VITALS: BP 131/79; PULSE 70; RESP 15; TEMP 36.6; O2SAT 98
[2025-03-13 08:37] LABS: Ur HCG Qualitative* Negative (Negative)
[2025-03-13 08:38] LABS: Hematocrit* 42.3 % (33.0-51.0); Hemoglobin* 14.5 gm/dL (12.0-16.0); Immature Granulocytes Abs Auto 0.00 K/uL (0.00-0.30); Immature Granulocytes Pct Auto 0.0 %; Mean Corpuscular HGB Conc 34 gm/dL (32-36); Mean Corpuscular Hemoglobin 33 pg (26-34); Mean Corpuscular Volume 97 fL (80-100); RDW Coefficient of Variation % 12.8 % (11.5-15.5); Red Blood Count* 4.35 m/uL (4.00-5.20); White Blood Count* 2.56 K/uL (4.50-11.00)
[2025-03-13 08:40] VITALS: BP 131/79; PULSE 70; RESP 15; TEMP 36.6; O2SAT 98
[2025-03-13 08:41] LABS: Lymphocytes Absolute Auto 0.80 K/uL (0.90-2.90); Slide Review Reflex No
[2025-03-13 08:52] LABS: Chloride* 102 mmol/L (96-114)
[2025-03-13 08:53] LABS: Albumin* 5.0 g/dL (3.3-5.0); Potassium* 4.4 mmol/L (3.6-5.1); Sodium* 140 mmol/L (135-149)
[2025-03-13] MEDS: GOSERELIN ACETATE 3.6 MG IMPLANT SUBCUT (08:53)
[2025-03-13 08:55] LABS: Alanine Aminotransferase* 27 U/L (4-35); Anion Gap 8 mEq/L (7-15); Aspartate Amino Transferase* 27 U/L (12-35); Blood Urea Nitrogen* 20 mg/dL (5-24); Carbon Dioxide* 30 mmol/L (20-32); Creatinine* 0.9 mg/dL (0.5-1.5); Est. Creatinine Clearance* 84.03; Estimated Glomerular Filt Rate 85 ml/min
[2025-03-13 08:56] LABS: Alkaline Phosphatase* 72 U/L (40-150); Bilirubin Total* 0.4 mg/dL (0.1-1.5); Calcium* 10.5 mg/dL (8.4-10.6); Glucose* 74 mg/dL (60-115); Total Protein* 8.1 g/dL (6.0-8.3)
[2025-04-12 08:28] LABS: Hematocrit* 42.6 % (33.0-51.0); Hemoglobin* 14.6 gm/dL (12.0-16.0); Immature Granulocytes Abs Auto 0.00 K/uL (0.00-0.30); Immature Granulocytes Pct Auto 0.0 %; Mean Corpuscular HGB Conc 34 gm/dL (32-36); Mean Corpuscular Hemoglobin 34 pg (26-34); Mean Corpuscular Volume 99 fL (80-100); RDW Coefficient of Variation % 12.5 % (11.5-15.5); Red Blood Count* 4.30 m/uL (4.00-5.20)
[2025-04-12 08:30] VITALS: BP 117/86; PULSE 70; RESP 16; TEMP 36.3; O2SAT 100
[2025-04-12 08:30] LABS: Lymphocytes Absolute Auto 0.90 K/uL (0.90-2.90); Slide Review Reflex Yes; White Blood Count* 1.89 K/uL (4.50-11.00)
[2025-04-12 08:39] LABS: Ur HCG Qualitative* Negative (Negative)
[2025-04-12 08:44] LABS: Chloride* 98 mmol/L (96-114)
[2025-04-12 08:45] LABS: Albumin* 5.1 g/dL (3.3-5.0); Potassium* 4.3 mmol/L (3.6-5.1); Sodium* 139 mmol/L (135-149)
[2025-04-12 08:47] LABS: Alanine Aminotransferase* 28 U/L (4-35); Anion Gap 8 mEq/L (7-15); Aspartate Amino Transferase* 27 U/L (12-35); Blood Urea Nitrogen* 20 mg/dL (5-24); Carbon Dioxide* 33 mmol/L (20-32); Creatinine* 0.9 mg/dL (0.5-1.5); Est. Creatinine Clearance* 84.03; Estimated Glomerular Filt Rate 85 ml/min
[2025-04-12 08:48] LABS: Alkaline Phosphatase* 79 U/L (40-150); Bilirubin Total* 0.5 mg/dL (0.1-1.5); Calcium* 10.2 mg/dL (8.4-10.6); Glucose* 57 mg/dL (60-115); Total Protein* 8.4 g/dL (6.0-8.3)
[2025-04-12] MEDS: GOSERELIN ACETATE 3.6 MG IMPLANT SUBCUT (08:52)
[2025-04-12 08:57] LABS: Slide Review Acceptable Review (Acceptable)
--- NOTE | 2025-04-12 15:33 | ONC.NURNOTE ---
Pt here for labs and zoladex. ANC 0.80 today. Labs reviewed by Adriana August APRN. Orders received to hold kisqali for 1 week and recheck CBC on 04/19/25. Pt also given written instructions on Neutropenic precautions. Pt verbalized understanding of plan of care.
== END 2025-04-16 23:59 | disposition home or self-care (01) ==
LOC: CCIC 08:00
PROVIDERS: Internal Medicine Hematology & Oncology; Physician Assistant; Visit Provider Clinical Nurse Specialist
DX: C50.912 Malignant neoplasm of unspecified site of left female breast (principal); Z17.0 Estrogen receptor positive status [ER+]; Z79.811 Long term (current) use of aromatase inhibitors; Z51.81 Encounter for therapeutic drug level monitoring; Z79.899 Other long term (current) drug therapy
CPT/HCPCS: 36415; 80053; 80076; 81025; 83735; 84702; 85025; 93005; 93010; 96402; 99214; 99215; G0463; J9202

== ENCOUNTER 2025-05-31 13:55 | Outpatient (CLI) | payer BC, SELFPAY ==
[2025-06-02 15:24] LABS: HPV Source Cervix
[2025-06-05 12:02] LABS: Pap Test Digital Imaging Done
== END 2025-05-31 13:56 | disposition home or self-care (01) ==
PROVIDERS: Visit Provider Registered Nurse
DX: Z12.4 Encounter for screening for malignant neoplasm of cervix (principal)
CPT/HCPCS: 87624; 87625; 88141; 88142; 88175